=== PATIENT | female | born 1950 | race Caucasian/White ===

== ENCOUNTER 2017-11-16 20:10 | Inpatient (IN) | payer OTHER, MEDICARE ==
[2017-11-16] VITALS (9 sets, daily range): BP systolic 113–137; BP diastolic 63–85; PULSE 102–124; RESP 20–28; TEMP 97.5–104.4; O2SAT 94–100
[~2017-11-16] VITALS: Ht 160 cm; Wt 82.7 kg
[~2017-11-16 20:10] MED LIST: DIGO0.259 PO; FURO1TAB93 PO; LANTUSP SQ; LEVA500T PO; LISI-357 PO; LORT10TA PO; METO50TA PO; POTA-243 PO; RIVA20 PO; SIMV20TA PO; UNIV15TA PO
[2017-11-16] MEDS ORDERED: NITROGLYCERIN-D5W 50 MG/250 ML 250 ML ONE (20:26)
[2017-11-16] MEDS ORDERED: FUROSEMIDE 40 MG/4 ML VIAL IV PUSH ONE (20:30)
[2017-11-16] MEDS ORDERED: NITROGLYCERIN-D5W 50 MG/250 ML 250 ML IV PRN (20:30)
[2017-11-16] MEDS ORDERED: PROPOFOL 1000 MG/100 ML INJ 100 ML IV PRN (20:30)
--- NOTE | 2017-11-16 20:35 | PD ---
HPI Chief Complaint: Respiratory Distress Time Seen by Provider: 20:24 Travel History International Travel<30 days: No Contact w/Intl Traveler<30days: No Traveled to known affect area: No History of Present Illness HPI Patient is a 67-year-old female who was at home severe shortness of breath in a rapid A. fib call paramedics they found her to be D satting they put her on CPAP and she continued to desat severe tachypnea air hunger en route discussion of intubating and ventilating patient agreed she is intubated in the field with 2 of Ativan 20 of etomidate patient arrives ET tube is in place she is hypertensive paramedics report that she had CHF with fluid bilaterally all the way up her lung arriaga intubation with out complications and she is brought into the ER hypertensive tachycardic and intubated tube was spotting breath sounds are equal bilateral auscultated at the axilla acute CHF exacerbation is the working diagnosis on initial eval temperature was 97.9 PFSH Past Medical History Arthritis: Yes Asthma: No Atrial Fibrillation: Yes Autoimmune Disease: No Anxiety: Yes Depression: No Heart Rhythm Problems: Yes (afib) Cancer: Yes (KIDNEY) Cardiovascular Problems: Yes High Cholesterol: Yes Chemotherapy: No Chest Pain: No Congestive Heart Failure: Yes COPD: Yes Cerebrovascular Accident: No Diabetes: Yes Diminished Hearing: No Endocrine: Yes Gastrointestinal Disorders: No GERD: No Glaucoma: No Genitourinary: Yes Hepatitis: No Hiatal Hernia: No Hypertension: Yes Immune Disorder: No Kidney Stones: No Musculoskeletal: Yes Neurologic: No Psychiatric: No Reproductive: No Respiratory: No Integumentary: No Migraines: No Pneumonia: Yes Radiation Therapy: No Renal Failure: No Seizures: No Sickle Cell Disease: No Sleep Apnea: No Thyroid Disease: No Ulcer: No ?: Not Past Surgical History Abdominal Surgery: No AICD: No Arteriovenous Shunt: No Cardiac Surgery: No Ear Surgery: No Endocrine Surgery: No Eye Surgery: No Genitourinary Surgery: Yes (KIDNEY REMOVED) Gynecologic Surgery: Yes (HYSTERECTOMY) Hysterectomy: Yes Insulin Pump: No Joint Replacement: No Oral Surgery: Yes (TONSILLECTOMY) Pacemaker: Yes Thoracic Surgery: No Tonsillectomy: Yes Social History Alcohol Use: Yes Tobacco Use: No Substance Use: No Allergies-Medications (Allergen,Severity, Reaction): Coded Allergies: penicillin G (Unverified Allergy, Severe, Nausea/Vomiting, 06/28/17) Reported Meds & Prescriptions Reported Meds & Active Scripts Active Reported Simvastatin 20 Mg Tab 20 Mg PO DAILY Potassium Chloride ER (Potassium Chloride) 8 Meq Cap 8 Meq PO BID Xarelto (Rivaroxaban) 10 Mg Tab 20 Mg PO DAILY Metoprolol Succinate ER 24 HR (Metoprolol Succinate) 50 Mg Tab 50 Mg PO BID Lantus Inj (Insulin Glargine) 100 Unit/Ml Inj 15 Unit SQ HS Entresto (Sacubitril-Valsartan) 49-51 Mg Tab 1 Tab PO DAILY Review of Systems ROS Limitations: Clinical Condition, Intubated Physical Exam Narrative GENERAL: Patient is intubated sedated unresponsive eyes partially open SKIN: Warm and dry. HEAD: Atraumatic. Normocephalic. EYES: Pupils equal and round. No scleral icterus. No injection or drainage. ENT: No nasal bleeding or discharge. Mucous membranes pink and moist. ET tube is in place tubas fogging chest is rising with each BVM ventilation NECK: Trachea midline. No JVD. CARDIOVASCULAR: Regular rate and rhythm. RESPIRATORY: No accessory muscle use. . Breath sounds equal bilaterally. Intubated axilla have coarse breath sounds bilaterally GASTROINTESTINAL: Abdomen soft, non-tender, nondistended. Hepatic and splenic margins not palpable. MUSCULOSKELETAL: Extremities cool to the touch No obvious deformities. NEUROLOGICAL: Patient is sedated and intubated neurological exam is unable to be performed Psychologically she is sedated and unresponsive Data Data Last Documented VS Vital Signs Date Time Temp Pulse Resp B/P (MAP) Pulse Ox O2 Delivery O2 Flow Rate FiO2 11/16/17 21:00 104.4 105 28 113/68 (83) 94 Ventilator 100 Orders Orders Chest, Single Ap (11/16/17 ) Nitroglycerin-D5w 50 Mg/250 Ml (Nitrogly (11/16/17 20:30) Propofol 1000 Mg/100 Ml Inj (Diprivan 10 (11/16/17 20:30) Nitroglycerin-D5w 50 Mg/250 Ml (Nitrogly (11/16/17 20:26) Complete Blood Count With Diff (11/16/17 20:28) Comprehensive Metabolic Panel (11/16/17 20:28) Ckmb (Isoenzyme) Profile (11/16/17 20:28) Troponin I (11/16/17 20:28) Urinalysis - C+S If Indicated (11/16/17 20:28) Magnesium (Mg) (11/16/17 20:28) Thyroid Stimulating Hormone (11/16/17 20:28) Furosemide Inj (Lasix Inj) (11/16/17 20:30) Piperacil-Tazo 3.375 Gm Premix (Zosyn 3. (11/16/17 21:00) Acetaminophen Supp (Tylenol Supp) (11/16/17 21:00) Admit To Inpatient (11/16/17 ) Code Status (11/16/17 20:59) Vital Signs (Adult) TEDDY.Q1H (11/16/17 20:59) Activity Bed Rest (11/16/17 20:59) Elevate Head Of Bed (11/16/17 20:59) Bedside Glucose TEDDY.BGM (11/16/17 20:59) Insert Ng Tube (11/16/17 20:59) Diet Npo (11/17/17 Breakfast) Sodium Chloride 0.9% Flush (Ns Flush) (11/16/17 21:00) Sodium Chloride 0.9% Flush (Ns Flush) (11/16/17 21:00) Famotidine Inj (Pepcid Inj) (11/16/17 21:00) Artificial Tears Opth Soln (Tears Natura (11/17/17 09:00) Ondansetron Inj (Zofran Inj) (11/16/17 21:00) Albuterol-Ipratropium Neb (Duoneb Neb) (11/16/17 22:00) Albuterol Neb (Albuterol Neb) (11/16/17 21:00) Complete Blood Count With Diff (11/17/17 04:00) Comprehensive Metabolic Panel (11/17/17 04:00) Troponin I (11/16/17 23:59) Act Partial Throm Time (Ptt) (11/17/17 04:00) Prothrombin Time / Inr (Pt) (11/17/17 04:00) Magnesium (Mg) (11/17/17 04:00) Phosphorus (Po4) (11/17/17 04:00) Lactic Acid (11/17/17 04:00) Blood Culture (11/16/17 20:59) Echo 2d Comp With Doppler (11/16/17 20:59) Pt Request For Service (11/16/17 20:59) Technical Staff Engineer / Telemetry TEDDY.Q8H (11/16/17 20:59) Scd Bilateral/Knee High TEDDY.BID (11/16/17 20:59) ^ Initiate Protocol (11/16/17 20:59) Instruction (11/16/17 20:59) [facility] (11/16/17 21:00) Chlorhexidine 2% Cloth (Chlorhexidine 2% (11/17/17 04:00) Chlorhexidine 2% Cloth (Chlorhexidine 2% (11/16/17 21:00) Mrsa Pcr Surveillance (11/16/17 20:59) Docusate Sodium-Senna (Jacinta-Colace) (11/16/17 21:00) Magnesium Hydroxide Liq (Milk Of Magnesi (11/16/17 21:00) Sennosides (Senokot) (11/16/17 21:00) Bisacodyl Supp (Dulcolax Supp) (11/16/17 21:00) Lactulose Liq (Lactulose Liq) (11/16/17 21:00) Inpatient Certification (11/16/17 ) Place Ng Tube To Low Intermit (11/16/17 21:02) Bedside Glucose TEDDY.Q6H (11/16/17 21:02) Blood Glucose Goal (Criteria) (11/16/17 21:02) Hypoglycemia 70 Mg/Dl Or < (11/16/17 21:02) Notify Dr: Other (11/16/17 21:02) Dextrose 50% In Lambert (Vial) Inj (D50w (Vi (11/16/17 21:15) Glucagon Inj (Glucagon Inj) (11/16/17 21:15) Insulin Human Reg Supp Scale (Novolin R (11/17/17 00:00) Elevate Head Of Bed (11/16/17 21:03) Chlorhexidine 0.12% Liq (Peridex 0.12% L (11/17/17 08:00) Resp Ventilation- Pressure (11/16/17 ) Restraints Non-Violent TEDDY.Q3H (11/16/17 21:03) Ventilator Weaning Readiness TEDDY.DAILY@0800 (11/16/17 21:03) Resp Spont Breath Trial (Sbt) (11/16/17 ) Arterial Blood Gas (Abg) (11/16/17 ) Propofol 1000 Mg/100 Ml Inj (Diprivan 10 (11/16/17 21:15) Neurological Rass Scale Q30MX2,Q2HX4,Q4H (11/16/17 21:03) Neurological Rass Scale Q30MX2,Q2HX4,Q4H (11/16/17 21:03) Fentanyl Drip (Fentanyl Drip) (11/16/17 21:15) Vancomycin Inj (Vancomycin Inj) (11/16/17 21:15) Influenzae A/B Antigen (11/16/17 21:04) Legionella Urinary Antigen (11/16/17 21:04) Pneumococcal Urinary Antigen (11/16/17 21:04) Aztreonam Inj (Azactam Inj) (11/16/17 23:00) Vancomycin Consult Pharmacy (Vancomycin (11/16/17 21:15) Azithromycin Inj (Zithromax Inj) (11/16/17 22:00) Admit Order (Ed Use Only) (11/16/17 21:19) Metronidazole 500 Mg Inj (Flagyl 500 Mg (11/17/17 00:00) Digoxin (11/16/17 20:40) Phosphorus (Po4) (11/16/17 20:40) CKMB (11/17/17 00:31) CKMB% (11/17/17 00:31) Creatine Kinase (Cpk) (11/17/17 02:53) Troponin I (11/17/17 02:53) CKMB (11/17/17 02:53) CKMB% (11/17/17 02:53) Labs Laboratory Tests Test 11/16/17 20:40 11/16/17 21:02 11/16/17 21:15 White Blood Count 15.6 TH/MM3 Red Blood Count 5.82 MIL/MM3 Hemoglobin 18.0 GM/DL Hematocrit 53.1 % Mean Corpuscular Volume 91.3 FL Mean Corpuscular Hemoglobin 31.0 PG Mean Corpuscular Hemoglobin Concent 33.9 % Red Cell Distribution Width 16.6 % Platelet Count 263 TH/MM3 Mean Platelet Volume 10.8 FL Neutrophils (%) (Auto) 76.1 % Lymphocytes (%) (Auto) 13.4 % Monocytes (%) (Auto) 9.3 % Eosinophils (%) (Auto) 0.2 % Basophils (%) (Auto) 1.0 % Neutrophils # (Auto) 11.9 TH/MM3 Lymphocytes # (Auto) 2.1 TH/MM3 Monocytes # (Auto) 1.4 TH/MM3 Eosinophils # (Auto) 0.0 TH/MM3 Basophils # (Auto) 0.2 TH/MM3 CBC Comment DIFF FINAL Differential Comment Blood Gas Puncture Site LT BRACHIAL Blood Gas Patient Temperature 98.6 Blood Gas HCO3 19 mmol/L Blood Gas Base Excess -6.4 mmol/L Blood Gas Oxygen Saturation 99 % Arterial Blood pH 7.31 Arterial Blood Partial Pressure CO2 38 mmHg Arterial Blood Partial Pressure O2 456 mmHG Arterial Blood Oxygen Content 27.1 Vol % Arterial Blood Carboxyhemoglobin 0.8 % Arterial Blood Methemoglobin 0.5 % Blood Gas Hemoglobin 18.8 G/DL Oxygen Delivery Device VENT Blood Gas Ventilator Setting SEE COMMENTS Blood Gas Inspired Oxygen 100 % Urine Color YELLOW Urine Turbidity HAZY Urine pH 6.5 Urine Specific [place] 1.019 Urine Protein 300 mg/dL Urine Glucose (UA) TRACE mg/dL Urine Ketones NEG mg/dL Urine Occult Blood MOD Urine Nitrite NEG Urine Bilirubin NEG Urine Urobilinogen LESS THAN 2.0 MG/DL Urine Leukocyte Esterase NEG Urine RBC 53 /hpf Urine WBC 38 /hpf Urine Squamous Epithelial Cells 8 /hpf Urine Amorphous Sediment RARE Urine Bacteria MANY /hpf Urine Hyaline Casts 3 /lpf Urine Mucus FEW /lpf Microscopic Urinalysis Comment CULTURE INDICATED MDM Medical Decision Making Medical Screen Exam Complete: Yes Emergency Medical Condition: Yes Medical Record Reviewed: Yes Differential Diagnosis Frontal diagnosis includes CHF due to hypertension and increased afterload versus bilateral pneumonia versus urosepsis versus viral illness versus OK with arrhythmia causing flash pulmonary edema versus other Narrative Course Patient is intubated in the field they found her to be hypertensive and all their BVM in her with a bag valve mask she was unable to maintain her said she was descending to 85 she tired out en route they intubated her etomidate was given in the field as well as Ativan she arrives her BP is 180/110 paramedics that she had frothy foam as intubating coming from her cords patient was given nitroglycerin 10 mics a minute as well as Lasix 40 in the ER temperature is 104 Vanco and Zosyn are started immediately to cover lungs versus urine patient is given propofol starting at 5 mics and titrating as needed I speak to Dr. Saha of ICU who comes bedside and admits the patient after I have done 45 minutes of critical care Critical Care Narrative Critical Medical care is 45 minutes Diagnosis Primary Impression: Sepsis Qualified Codes: A41.9 - Sepsis, unspecified organism Additional Impressions: Cardiac ischemia Dehydration Admitting Information Admitting Physician Requests: Admit Devan Unger MD Nov 16, 2017 20:35
--- NOTE | 2017-11-16 20:53 | HHI.HP ---
[facility] Service Critical Care Medicine Primary Care Physician Unknown Admission Diagnosis Acute respiratory failure Diagnosis: (1) Acute respiratory failure with hypoxia and hypercapnia Diagnosis: Principal (2) Chronic systolic heart failure Diagnosis: Principal (3) Hypertension Diagnosis: Principal (4) Dyslipidemia Diagnosis: Secondary (5) Chronic anticoagulation Diagnosis: Principal (6) Atrial fibrillation with rapid ventricular response Diagnosis: Principal (7) Leukocytosis Diagnosis: Principal (8) Community acquired pneumonia Diagnosis: Principal (9) Sepsis Diagnosis: Principal (10) Elevated levels of transaminase & lactic acid dehydrogenase Diagnosis: Principal (11) Lactic acidosis Diagnosis: Principal Chief Complaint: Two to 3 day history of Short of breath. Intubated Travel History International Travel<30 Days: No Contact w/Intl Traveler <30 Da: No Traveled to Known Affected Are: No Sepsis Criteria SIRS Criteria (2 or more): RR > 20 or PaCO2 < 32, WBC > 90201, < 4000 or > 10 % bands Sepsis Criteria (SIRS+source): Infect source susp/known History of Present Illness 67-year-old female. Date of admission 11/16/2017. Past medical history includes chronic systolic heart failure ejection fraction 25%, hypertension, dyslipidemia, atrial fibrillation on chronic rivaroxaban, renal cell cancer status post nephrectomy, diabetes. Patient resisted [place] of the today for 2-3 day history of shortness of breath, fevers. Patient has not precipitated been on antibiotics. No recent sick contacts or travels. In route , patient asked me intubated was received lorazepam and etomidate. Patient was "intubated" due to CHF vs PNA. Received Furosemide in route. Currently no laboratories or chest x-ray or EKG have been performed at the present time. We are asked to admit the patient. Review of Systems ROS Limitations: Altered Mental Status Past Family Social History Allergies: Coded Allergies: penicillin G (Unverified Allergy, Severe, Nausea/Vomiting, 06/28/17) Past Medical History Ischemic cardiomyopathy ejection fraction 25-30% Chronic systolic heart failure Atrial fibrillation Hypertension Dyslipidemia Diabetes mellitus Osteoporosis osteoarthritis Left bundle branch block/left anterior fascicular block History of renal cell carcinoma Chronic anticoagulation Past Surgical History T&A AICD Nephrectomy secondary to renal cell carcinoma Hysterectomy Reported Medications Lortab (Hydrocodone-Acetaminophen) 1 Tab Tab 1 Tab PO 5/500 MG PO Q4HR PRN FOR PAIN Levaquin 500 Mg Tab (Levofloxacin) 500 Mg Tab 500 Mg PO DAILY 5 Days Lisinopril 5 Mg Tab 5 Mg PO DAILY Klor-Con 10 Meq (Potassium Chloride) 10 Meq Tabcr 20 Meq PO DAILY Lasix (Furosemide) 40 Mg Tab 40 Mg PO BID Xarelto 20 Mg Tab (Rivaroxaban) 20 Mg Tab 20 Mg PO DAILY Digox (Digoxin) 0.25 Mg Tab 250 Mcg PO DAILY Metoprolol Tartrate 50 Mg Tab 50 Mg PO BID Lantus (Insulin Glargine) 100 Units/Ml Inj 12 Units SQ HS Simvastatin 20 Mg Tab 20 Mg PO HS Univasc (Moexipril HCl) 15 Mg Tab 15 Mg PO BID Active Ordered Medications Reviewed in EMR Family History Positive for carotid artery disease. Social History No tobacco, alcohol or IV drug use Physical Exam Vital Signs Vital Signs Date Time Temp Pulse Resp B/P (MAP) Pulse Ox O2 Delivery O2 Flow Rate FiO2 11/16/17 20:40 107 164/110 11/16/17 20:19 120 20 11/16/17 20:18 110 137/85 (102) 11/16/17 20:17 100 11/16/17 20:13 97.5 124 20 Physical Exam GENERAL: 67 -year-old currently orotracheally intubated SKIN: Warm and dry. No rash HEAD: Atraumatic. Normocephalic. EYES: Pupils equal and round around 3 mm bilaterally. No scleral icterus. No injection or drainage. ENT: No nasal bleeding or discharge. Mucous membranes pink and moist. NECK: Trachea midline. No JVD. CARDIOVASCULAR: Tachycardia, IR. S1, S2 no S4 no murmur.. RESPIRATORY: Diminished. Few crackles patient bases bilaterally. No wheeze GASTROINTESTINAL: Abdomen soft, non-tender, nondistended. Positive bowel sounds MUSCULOSKELETAL: Extremities without significant peripheral edema. No obvious deformities. NEUROLOGICAL: Cranial nerves II through XII grossly intact. Withdraws to pain in all 4 extremities. Positive gag. Positive corneal reflex. Laboratory Laboratory Tests Test 11/16/17 20:40 11/16/17 21:02 White Blood Count 15.6 TH/MM3 Red Blood Count 5.82 MIL/MM3 Hemoglobin 18.0 GM/DL Hematocrit 53.1 % Mean Corpuscular Volume 91.3 FL Mean Corpuscular Hemoglobin 31.0 PG Mean Corpuscular Hemoglobin Concent 33.9 % Red Cell Distribution Width 16.6 % Platelet Count 263 TH/MM3 Mean Platelet Volume 10.8 FL Neutrophils (%) (Auto) 76.1 % Lymphocytes (%) (Auto) 13.4 % Monocytes (%) (Auto) 9.3 % Eosinophils (%) (Auto) 0.2 % Basophils (%) (Auto) 1.0 % Neutrophils # (Auto) 11.9 TH/MM3 Lymphocytes # (Auto) 2.1 TH/MM3 Monocytes # (Auto) 1.4 TH/MM3 Eosinophils # (Auto) 0.0 TH/MM3 Basophils # (Auto) 0.2 TH/MM3 CBC Comment DIFF FINAL Differential Comment Blood Gas Puncture Site LT BRACHIAL Blood Gas Patient Temperature 98.6 Blood Gas HCO3 19 mmol/L Blood Gas Base Excess -6.4 mmol/L Blood Gas Oxygen Saturation 99 % Arterial Blood pH 7.31 Arterial Blood Partial Pressure CO2 38 mmHg Arterial Blood Partial Pressure O2 456 mmHG Arterial Blood Oxygen Content 27.1 Vol % Arterial Blood Carboxyhemoglobin 0.8 % Arterial Blood Methemoglobin 0.5 % Blood Gas Hemoglobin 18.8 G/DL Oxygen Delivery Device VENT Blood Gas Ventilator Setting SEE COMMENTS Blood Gas Inspired Oxygen 100 % Imaging Last Impressions Chest X-Ray 11/16/17 0000 Signed Impressions: Service Date/Time: November 20:52 - CONCLUSION: Bilateral airspace disease greatest in the left lower lobe. Gato Garcia MD Septic Shock Reassessment Septic shock perfusion: reassessment completed Caprini VTE Risk Assessment Caprini VTE Risk Assessment: Mod/High Risk (score >= 2) Caprini Risk Assessment Model Point Value = 1 Point Value = 2 Point Value = 3 Point Value = 5 Age 41-60 Minor surgery BMI > 25 kg/m2 Swollen legs Varicose veins or History of unexplained or recurrent spontaneous Oral contraceptives or hormone replacement Sepsis (< 1 month) Serious lung disease, including pneumonia (< 1 month) Abnormal pulmonary function Acute myocardial infarction Congestive heart failure (< 1 month) History of inflammatory bowel disease Medical patient at bed rest Age 61-74 Arthroscopic surgery Major open surgery (> 45 min) Laparoscopic surgery (> 45 min) Malignancy Confined to bed (> 72 hours) Immobilizing plaster cast Central venous access Age >= 75 History of VTE Family history of VTE Factor V Leiden Prothrombin [id number] Lupus anticoagulant Anticardiolipin antibodies Elevated serum homocysteine Heparin-induced thrombocytopenia Other congenital or acquired thrombophilia Stroke (< 1 month) Elective arthroplasty Hip, pelvis, or leg fracture Acute spinal cord injury (< 1 month) Prophylaxis Regimen Total Risk Factor Score Risk Level Prophylaxis Regimen 0-1 Low Early ambulation 2 Moderate Order ONE of the following: *Sequential Compression Device (SCD) *Heparin 5000 units SQ BID 3-4 Higher Order ONE of the following medications: *Heparin 5000 units SQ TID *Enoxaparin/Lovenox 40 mg SQ daily (WT < 150 kg, CrCl > 30 mL/min) *Enoxaparin/Lovenox 30 mg SQ daily (WT < 150 kg, CrCl > 10-29 mL/min) *Enoxaparin/Lovenox 30 mg SQ BID (WT < 150 kg, CrCl > 30 mL/min) AND/OR *Sequential Compression Device (SCD) 5 or more Highest Order ONE of the following medications: *Heparin 5000 units SQ TID (Preferred with Epidurals) *Enoxaparin/Lovenox 40 mg SQ daily (WT < 150 kg, CrCl > 30 mL/min) *Enoxaparin/Lovenox 30 mg SQ daily (WT < 150 kg, CrCl > 10-29 mL/min) *Enoxaparin/Lovenox 30 mg SQ BID (WT < 150 kg, CrCl > 30 mL/min) AND *Sequential Compression Device (SCD) Assessment and Plan Assessment and Plan Neuro/Psych: Patient is currently propofol/fentanyl drips for sedation/analgesia while intubated Goal of RA SS -2 Daily sedation vacation Acetaminophen 650 mg every 6 hours when necessary fever discontinue secondary to elevated transaminases CV: Ischemic cardiomyopathy Atrial fibrillation with rapid ventricular response Hypertension Dyslipidemia History of AICD Lactic acidosis Currently nitroglycerin drip. Recommend obtaining EKG - A. fib with RVR. Left bundle branch block. Recommend obtaining electrolytes and cardiac markers - troponin elevated. Cardiology consulted. Dr. Burnette his supervisor anodizing Recommend obtaining a TSH Recommend checking digoxin level - 1.5 Follow serial lactates until clear. Currently 2.7 Home medications include digoxin .250 mg daily, metoprolol 50 mg twice a day, moexipril 15 mill grams twice a day lisinopril 5 mill grams daily held in acute kidney injury/borderline blood pressure Patient is on furosemide 40 mg twice a day with potassium chloride 20 mEq daily at home. This is been held. Acute kidney injury. Resp: Acute hypoxic hypercapnic respiratory failure [facility] 16/500/40 Ventilator bundle Albuterol/ipratropium aerosols every 6 hours albuterol aerosols every 2 hours. Dyspnea Spontaneous breathing trials daily Chest x-ray revealed bilateral lower lobe infiltrates. GI: Elevated transaminases Patient is currently nothing by mouth NGT to LIWS Famotidine for GI prophylaxis Docusate/senna for bowel regimen Liver ultrasound/hepatitis panel pending. CPK 400 : Delgado catheter for accurate I's nose any critically ill patient Endo: Diabetes mellitus Holding insulin glargine 12 units at night. Sliding-scale insulin with Accu-Cheks every 6 hours to maintain euglycemia. Novulin R moderate regimen Check TSH Renal: History of renal cell carcinoma status post nephrectomy Acute kidney injury Recommended obtain BMP - creatinine elevated 1.99. Avoid nephrotoxic drugs Follow-up renal ultrasound/eosinophils and urine electrolytes Heme: Leukocytosis polycythemia Chronic Rivaroxaban use Monitor CBC daily. Follow trends Elevated coagulopathy state likely secondary to shock liver. Recheck in a.m. ID: Pyyrexia Temperature is currently 100F Recommend obtaining blood cultures, urine culture and sputum culture Recommend obtaining influenza Check urine Legionella pneumococcal antigen Received 1 dose of piperacillin/tazobactam in the ED noted allergy to penicillin. Started on vancomycin, aztreonam, metronidazole and azithromycin FEN: Recommend obtaining electrolytes and replace as clinically indicated MSK: pt EVAL and treat Access - Utilize peripheral IV. Central line if indicated Prophylaxis - GI - pantoprazole - DVT - SCD/coags and platelet count prior to initiating pharmacological prophylaxis Level II admission Code Status Full code Discussed Condition With ED physician. Care plan discussed and all questions answered. Problem Qualifiers (1) Hypertension: Qualified Codes: I10 - Essential (primary) hypertension (2) Leukocytosis: Qualified Codes: D72.829 - Elevated white blood cell count, unspecified (3) Community acquired pneumonia: Qualified Codes: J18.1 - Lobar pneumonia, unspecified organism (4) Sepsis: Qualified Codes: A41.9 - Sepsis, unspecified organism Chandler Saha MD Nov 16, 2017 20:53
[2017-11-16 20:58] LABS: AUTOMATED NEUTROPHIL # 11.9 TH/MM3 (1.8-7.7); BASOPHIL # 0.2 TH/MM3 (0-0.2); EOSINOPHIL % 0.2 % (0.0-4.0); HEMATOCRIT 53.1 % (35.0-46.0); LYMPH % 13.4 % (9.0-44.0); LYMPHOCYTE # 2.1 TH/MM3 (1.0-4.8); MEAN CELL VOLUME 91.3 FL (80.0-100.0); MEAN CORPUSCULAR HGB CONC 33.9 % (32.0-36.0); MEAN PLATELET VOLUME 10.8 FL (7.0-11.0); MONO % 9.3 % (0.0-8.0); MONOCYTE # 1.4 TH/MM3 (0-0.9); NEUT % 76.1 % (16.0-70.0); PLATELET COUNT 263 TH/MM3 (150-450); RED BLOOD COUNT 5.82 MIL/MM3 (4.00-5.30); RED CELL DISTRIBUTION WIDTH 16.6 % (11.6-17.2); WHITE BLOOD COUNT 15.6 TH/MM3 (4.0-11.0)
[2017-11-16] MEDS ORDERED: FAMOTIDINE 20 MG/2 ML VIAL IV PUSH SCH (21:00)
[2017-11-16] MEDS ORDERED: PIPERACIL-TAZO 3.375 GM PREMIX 50 ML IV ONE (21:00)
[2017-11-16] MEDS ORDERED: BISACODYL 10 MG SUPP RECTAL PRN (21:00)
[2017-11-16] MEDS ORDERED: ACETAMINOPHEN 650 MG SUPP RECTAL ONE (21:00)
[2017-11-16] MEDS ORDERED: MAGNESIUM HYDROXIDE SUSP 30 ML CUP PO PRN (21:00)
[2017-11-16] MEDS ORDERED: RESP: ALBUTEROL 2.5 MG/3 ML NEB (PRN) INH (21:00)
[2017-11-16] MEDS ORDERED: ONDANSETRON HCL 4 MG/2 ML VIAL IV PUSH PRN (21:00)
[2017-11-16] MEDS: DOCUSATE SODIUM 50 MG/SENNA 8.6 MG TAB PO SCH (21:00)
[2017-11-16] MEDS ORDERED: MISCELLANEOUS NURSING INFORMATION XX SCH (21:00)
[2017-11-16] MEDS ORDERED: SODIUM CHLORIDE 0.9% FLUSH 10 ML FLUSH IV FLUSH PRN (21:00)
[2017-11-16] MEDS ORDERED: CHLORHEXIDINE GLUCONATE 2 % 1 PACK (2 CLOTHS) TOP PRN (21:00)
[2017-11-16] MEDS ORDERED: SENNOSIDES 8.6 MG TAB PO PRN (21:00)
[2017-11-16] MEDS ORDERED: LACTULOSE SYRUP 20 GM/30 ML CUP PO PRN (21:00)
--- NOTE | 2017-11-16 21:08 | RADRPT ---
EXAM DATE/TIME: 11/16/2017 20:52 [place] COMPARISON: No previous studies available for comparison. INDICATIONS : Short of breath. Post intubation. MEDICAL HISTORY : Unable to obtain. SURGICAL HISTORY : Pacemaker. ENCOUNTER: Initial ACUITY: 1 day PAIN SCORE: Non-responsive. LOCATION: Bilateral chest FINDINGS: Endotracheal tube tip at the inferior margin of clavicles. NG tube courses inferiorly, distal tip pro jecting at the expected location of the esophagogastric junction. There is patchy airspace disease bi laterally and cardiomegaly. Pacer device from a left subclavian transvenous approach noted. CONCLUSION: Bilateral airspace disease greatest in the left lower lobe. Gato Garcia MD on November 16, 2017 at 21:06 Board Certified Radiologist. This report was verified electronically.
[2017-11-16] MEDS ORDERED: VANCOMYCIN INJ 1,000 MG in SODIUM CHLOR 0.9% 250 ML INJ 250 ML IV ONE (21:15)
[2017-11-16] MEDS ORDERED: Vancomycin Consult Pharmacy 1 EA OTHER SCH (21:15)
[2017-11-16] MEDS ORDERED: GLUCAGON 1 MG/ML VIAL OTHER PRN (21:15)
[2017-11-16] MEDS ORDERED: fentaNYL DRIP 250 ML IV PRN (21:15)
[2017-11-16] MEDS ORDERED: SACU1TAB7 PO (21:31)
[2017-11-16] MEDS ORDERED: SIMV20TA PO (21:31)
[2017-11-16] MEDS ORDERED: POTA8CAP PO (21:31)
[2017-11-16] MEDS ORDERED: XARE10TA PO (21:31)
[2017-11-16] MEDS ORDERED: LANTUS2P SQ (21:31)
[2017-11-16] MEDS ORDERED: METO1TAB9 PO (21:31)
[2017-11-16] MEDS ORDERED: ACETAMINOPHEN 650 MG/20.3 ML UDC OG-TUBE PRN (21:45)
[2017-11-16] MEDS: RESP: ALBUTEROL 2.5 MG/IPRATROPIUM 0.5 MG NEB (SCH) INH (21:47)
[2017-11-16] MEDS ORDERED: SODIUM CHLORID 0.9% 500 ML INJ 500 ML IV ONE (22:15)
[2017-11-16 22:20] LABS: AMORPHOUS SEDIMENT, URINE RARE; BACTERIA, URINE MANY /hpf; BLOOD, URINE MOD (NEG); GLUCOSE,URINE TRACE mg/dL (NEG); HYALINE CAST, URINE 3 /lpf (RARE); KETONE, URINE NEG (NEG); MUCUS URINE FEW /lpf (OCC); NITRITE,URINE NEG (NEG); PH, URINE 6.5 (5.0-8.5); SQUAMOUS EPITHELIAL CELL URINE 8 /hpf (0-5); URINE COLOR YELLOW (YELLW/STRAW); URINE LEUKOCYTE ESTERASE NEG (NEG)
[2017-11-16 22:26] LABS: BILIRUBIN, URINE NEG (NEG)
[2017-11-16] MEDS: AZITHROMYCIN INJ 500 MG in SODIUM CHLOR 0.9% 250 ML INJ 250 ML IV SCH (22:35)
[2017-11-16] MEDS: PROPOFOL 1000 MG/100 ML INJ 100 ML IV PRN (23:55)
[2017-11-17] VITALS (19 sets, daily range): BP systolic 89–111; BP diastolic 54–69; PULSE 63–110; RESP 19–28; TEMP 97.8–102; O2SAT 94–100
[2017-11-17] MEDS: metroNIDAZOLE 500 MG INJ 100 ML IV SCH ×4 (00:15→23:15)
[2017-11-17] MEDS: AZITHROMYCIN INJ 500 MG in SODIUM CHLOR 0.9% 250 ML INJ 250 ML IV SCH (00:15)
[2017-11-17] MEDS: AZTREONAM INJ 2,000 MG in SODIUM CHLORIDE 0.9% INJ 100 ML IV SCH ×4 (00:16→23:14)
[2017-11-17] MEDS: SODIUM CHLORIDE 0.9% FLUSH 10 ML FLUSH IV FLUSH SCH ×3 (00:17→20:53)
[2017-11-17 01:33] LABS: ALBUMIN 2.2 GM/DL (3.4-5.0); ALKALINE PHOSPHATASE 99 U/L (45-117); ALT (GPT) 2408 U/L (10-53); AST (GOT) 4277 U/L (15-37); BLOOD UREA NITROGEN 39 MG/DL (7-18); CALCIUM 8.1 MG/DL (8.5-10.1); CHLORIDE 104 MEQ/L (98-107); CREATININE 1.95 MG/DL (0.50-1.00); DIGOXIN 1.5 NG/ML (0.8-2.0); GLOMERULAR FILTRATION RATE 26 ML/MIN (>89); GLUCOSE,RANDOM 189 MG/DL (74-106); PHOSPHORUS 4.7 MG/DL (2.5-4.9); SODIUM (NA) 140 MEQ/L (136-145); TOTAL BILIRUBIN ADULT 3.3 MG/DL (0.2-1.0); TOTAL PROTEIN 5.6 GM/DL (6.4-8.2)
[2017-11-17 01:43] LABS: MAGNESIUM 1.8 MG/DL (1.5-2.5)
[2017-11-17 01:45] LABS: TROPONIN I 1.13 NG/ML (0.02-0.05)
[2017-11-17 03:06] LABS: AUTOMATED NEUTROPHIL # 12.8 TH/MM3 (1.8-7.7); BASOPHIL % 0.3 % (0.0-2.0); HEMATOCRIT 50.8 % (35.0-46.0); HEMOGLOBIN 16.7 GM/DL (11.6-15.3); LYMPH % 7.5 % (9.0-44.0); LYMPHOCYTE # 1.1 TH/MM3 (1.0-4.8); MEAN CELL VOLUME 89.2 FL (80.0-100.0); MEAN CORPUSCULAR HEMOGLOBIN 29.3 PG (27.0-34.0); MEAN CORPUSCULAR HGB CONC 32.9 % (32.0-36.0); MEAN PLATELET VOLUME 9.5 FL (7.0-11.0); MONOCYTE # 0.7 TH/MM3 (0-0.9); NEUT % 87.2 % (16.0-70.0); PLATELET COUNT 134 TH/MM3 (150-450); RED BLOOD COUNT 5.69 MIL/MM3 (4.00-5.30); RED CELL DISTRIBUTION WIDTH 16.1 % (11.6-17.2); WHITE BLOOD COUNT 14.7 TH/MM3 (4.0-11.0)
[2017-11-17 03:23] LABS: INTERNATIONAL NORMALIZED RATIO 2.8 RATIO; PROTHROMBIN TIME - PATIENT 28.5 SEC (9.8-11.6)
[2017-11-17 03:40] LABS: ALBUMIN 2.1 GM/DL (3.4-5.0); BLOOD UREA NITROGEN 42 MG/DL (7-18); CALCIUM 7.7 MG/DL (8.5-10.1); CREATININE 1.99 MG/DL (0.50-1.00); GLOMERULAR FILTRATION RATE 25 ML/MIN (>89); GLUCOSE,RANDOM 201 MG/DL (74-106); TOTAL PROTEIN 5.1 GM/DL (6.4-8.2)
[2017-11-17 03:41] LABS: ALKALINE PHOSPHATASE 96 U/L (45-117); ALT (GPT) 2581 U/L (10-53); AST (GOT) 4938 U/L (15-37); BICARBONATE 22.9 MEQ/L (21.0-32.0); CHLORIDE 106 MEQ/L (98-107); MAGNESIUM 1.6 MG/DL (1.5-2.5); SODIUM (NA) 142 MEQ/L (136-145); TOTAL BILIRUBIN ADULT 2.7 MG/DL (0.2-1.0)
[2017-11-17] MEDS: RESP: ALBUTEROL 2.5 MG/IPRATROPIUM 0.5 MG NEB (SCH) INH ×4 (03:41→22:03)
[2017-11-17 03:46] LABS: TROPONIN I 1.41 NG/ML (0.02-0.05)
[2017-11-17] MEDS: HEPARIN-D5W 25,000 U/250 ML 250 ML IV PRN (03:54)
[2017-11-17] MEDS: CHLORHEXIDINE GLUCONATE 2 % 1 PACK (2 CLOTHS) TOP SCH (04:00)
[2017-11-17] MEDS ORDERED: SODIUM CHLOR 0.9% 1000 ML INJ 1,000 ML IV ONE (04:45)
[2017-11-17] MEDS: PROPOFOL 1000 MG/100 ML INJ 100 ML IV PRN ×2 (05:50→15:35)
[2017-11-17] MEDS: INSULIN NovoLIN REGULAR SUPPLEMENTAL SCALE SQ SCH ×5 (06:00→23:18)
[2017-11-17] MEDS: SODIUM CHLOR 0.9% 1000 ML INJ 1,000 ML IV SCH ×2 (06:02→16:40)
[2017-11-17 07:09] LABS: CREATININE, RANDOM URINE 37.1 MG/DL
[2017-11-17] MEDS: ARTIFICIAL TEARS OPTH SOLN 15 ML BTL EACH EYE SCH ×3 (09:00→18:00)
[2017-11-17] MEDS: DOCUSATE SODIUM 50 MG/SENNA 8.6 MG TAB PO SCH ×2 (09:00→20:52)
--- NOTE | 2017-11-17 09:04 | PD.CONS ---
HPI Consult Requested By Primary Care Physician No Primary Care Physician History of Present Illness 67-year-old female admitted to the ICU with respiratory failure, intubated consulted to cardiology due to acute on chronic systolic heart failure exacerbation. Past medical history includes chronic systolic heart failure ejection fraction 25% s/p AICD, hypertension, dyslipidemia, atrial fibrillation on chronic rivaroxaban, renal cell cancer status post nephrectomy and diabetes. She presented to [facility] [place] with shortness of breath and fevers Tmax 104.4. No recent sick contacts or travels. Review of Systems ROS Limitations: Intubated Consitutional: DENIES: Fatigue, Fever, Chills, Weight gain, Weight loss Eyes: DENIES: Amaurosis Fugax, Change in vision HEENT: DENIES: Lightheadedness, Change in hearing Respiratory: COMPLAINS OF: See HPI, Shortness of breath, DENIES: Cough, Snoring , Wheezing, Sputum production Cardiovascular: DENIES: See HPI, Chest pain, Palpitations, Syncope, Tachycardia Gastrointestinal: DENIES: Nausea, Vomiting, Change in bowel habits, Reflux, Bloody stools, Melena Genitourinary: DENIES: Urinary incontinence, Difficulty voiding Integumentary: DENIES: Rash Neurologic: DENIES: Tingling or numbness, Memory problems, Poor Balance, Stroke symptoms Musculoskeletal: DENIES: Joint pain, Muscle pain, Limited range of motion, Back pain Psychiatric: DENIES: Anxiety, Depression, Sleep disturbances Hematologic: DENIES: Bruising tendencies, Bleeding tendencies Endocrine: DENIES: Weight gain, Weight loss, Thyroid disease Past Family Social History Allergies: Coded Allergies: penicillin G (Unverified Allergy, Severe, Nausea/Vomiting, 06/28/17) Past Medical History Ischemic cardiomyopathy ejection fraction 25-30% Chronic systolic heart failure Atrial fibrillation Hypertension Dyslipidemia Diabetes mellitus Osteoporosis osteoarthritis Left bundle branch block/left anterior fascicular block History of renal cell carcinoma Chronic anticoagulation Past Surgical History T&A AICD Nephrectomy secondary to renal cell carcinoma Hysterectomy Reported Medications Reported Meds & Active Scripts Active Reported Simvastatin 20 Mg Tab 20 Mg PO DAILY Potassium Chloride ER (Potassium Chloride) 8 Meq Cap 8 Meq PO BID Xarelto (Rivaroxaban) 10 Mg Tab 20 Mg PO DAILY Metoprolol Succinate ER 24 HR (Metoprolol Succinate) 50 Mg Tab 50 Mg PO BID Lantus Inj (Insulin Glargine) 100 Unit/Ml Inj 15 Unit SQ HS Entresto (Sacubitril-Valsartan) 49-51 Mg Tab 1 Tab PO DAILY Active Ordered Medications Current Medications Medications (Trade) Dose Ordered Sig/Baldomero Route Start Time Stop Time Status Last Admin Nitroglycerin/ Dextrose 250 ml @ 3 mls/hr TITRATE PRN IV 11/16/17 20:30 11/16/17 20:40 (NS Flush) 2 ml UNSCH PRN IV FLUSH 11/16/17 21:00 (NS Flush) 2 ml BID IV FLUSH 11/16/17 21:00 11/17/17 00:17 (Tears Naturale Opth Soln) 1 drop TID EACH EYE 11/17/17 09:00 (Zofran Inj) 4 mg Q6H PRN IV PUSH 11/16/17 21:00 (Duoneb Neb) 1 ampule Q6HR NEB INH 11/16/17 22:00 11/17/17 08:08 (Albuterol Neb) 2.5 mg Q2HR NEB PRN INH 11/16/17 21:00 Miscellaneous Information 1 Q361D XX 11/16/17 21:00 (Chlorhexidine 2% Cloth) 3 pack Taper DAILY@04 TOP 11/17/17 04:00 11/13/18 03:59 11/17/17 04:00 (Chlorhexidine 2% Cloth) 3 pack UNSCH PRN TOP 11/16/17 21:00 (Jacinta-Colace) 1 tab BID PO 11/16/17 21:00 (Milk Of Magnesia Liq) 30 ml Q12H PRN PO 11/16/17 21:00 (Senokot) 17.2 mg Q12H PRN PO 11/16/17 21:00 (Dulcolax Supp) 10 mg DAILY PRN RECTAL 11/16/17 21:00 (Lactulose Liq) 30 ml DAILY PRN PO 11/16/17 21:00 (D50w (Vial) Inj) 50 ml UNSCH PRN IV PUSH 11/16/17 21:15 (Glucagon Inj) 1 mg UNSCH PRN OTHER 11/16/17 21:15 (NovoLIN R SUPPLEMENTAL SCALE) 1 Q6HR SQ 11/17/17 00:00 11/17/17 06:00 (Peridex 0.12% Liq) 15 ml BID@08,20 MT 11/17/17 08:00 Propofol 100 ml @ 1.95 mls/hr TITRATE PRN IV 11/16/17 21:15 11/17/17 05:50 Fentanyl Citrate 250 ml @ 5 mls/hr TITRATE PRN IV 11/16/17 21:15 Aztreonam 2000 mg/ Sodium Chloride 100 ml @ 200 mls/hr Q8H IV 11/16/17 23:00 11/17/17 06:02 Pharmacy Profile Note 0 ml @ 0 mls/hr UNSCH OTHER 11/16/17 21:15 Metronidazole 100 ml @ 100 mls/hr Q8H IV 11/17/17 00:00 11/17/17 00:15 Azithromycin 500 mg/Sodium Chloride 250 ml @ 250 mls/hr Q24H IV 11/16/17 22:00 11/17/17 00:15 Heparin Sodium/ Dextrose 250 ml @ 8 mls/hr TITRATE PRN IV 11/17/17 02:15 11/17/17 03:54 (Pepcid Inj) 20 mg DAILY IV PUSH 11/17/17 09:00 Sodium Chloride 1,000 ml @ 84 mls/hr [id number] IV 11/17/17 04:45 11/17/17 06:02 Family History Positive for carotid artery disease. Social History No tobacco, alcohol or IV drug use Physical Exam Vital Signs Vital Signs Date Time Temp Pulse Resp B/P (MAP) Pulse Ox O2 Delivery O2 Flow Rate FiO2 11/17/17 08:08 100 40 11/17/17 06:00 65 11/17/17 04:00 98.4 67 22 97/54 (68) 100 11/17/17 04:00 67 11/17/17 04:00 100 11/17/17 03:41 100 50 11/17/17 02:00 78 11/17/17 00:00 94 11/17/17 00:00 100 11/17/17 00:00 100.6 94 28 89/64 (72) 100 11/16/17 22:55 101.3 102 28 122/63 (82) 100 11/16/17 22:55 100 11/16/17 22:51 104 11/16/17 22:35 100 100 11/16/17 22:08 102.9 115 26 97 50 11/16/17 22:05 96 50 11/16/17 21:00 104.4 105 28 113/68 (83) 94 Ventilator 100 11/16/17 20:40 107 164/110 11/16/17 20:25 97 100 11/16/17 20:19 120 20 11/16/17 20:18 110 137/85 (102) 11/16/17 20:17 100 11/16/17 20:13 97.5 124 20 Physical Exam GENERAL: Well-nourished, well-developed patient, Intubated but responding to commands SKIN: Warm and dry. HEAD: Normocephalic. EYES: No scleral icterus. No injection or drainage. NECK: Supple, trachea midline. No JVD or lymphadenopathy. CARDIOVASCULAR: Regular rate and rhythm without murmurs, gallops, or rubs. RESPIRATORY: Breath sounds equal bilaterally. No accessory muscle use. GASTROINTESTINAL: Abdomen soft, non-tender, nondistended. EXTREMITIES: No cyanosis, or edema. NEUROLOGICAL: Awake, alert, and oriented x 3. Non-focal. Laboratory Laboratory Tests Test 11/16/17 20:40 11/16/17 21:02 11/16/17 21:15 11/16/17 23:11 White Blood Count 15.6 Red Blood Count 5.82 Hemoglobin 18.0 Hematocrit 53.1 Mean Corpuscular Volume 91.3 Mean Corpuscular Hemoglobin 31.0 Mean Corpuscular Hemoglobin Concent 33.9 Red Cell Distribution Width 16.6 Platelet Count 263 Mean Platelet Volume 10.8 Neutrophils (%) (Auto) 76.1 Lymphocytes (%) (Auto) 13.4 Monocytes (%) (Auto) 9.3 Eosinophils (%) (Auto) 0.2 Basophils (%) (Auto) 1.0 Neutrophils # (Auto) 11.9 Lymphocytes # (Auto) 2.1 Monocytes # (Auto) 1.4 Eosinophils # (Auto) 0.0 Basophils # (Auto) 0.2 CBC Comment DIFF FINAL Differential Comment Blood Gas Puncture Site LT BRACHIAL Blood Gas Patient Temperature 98.6 Blood Gas HCO3 19 Blood Gas Base Excess -6.4 Blood Gas Oxygen Saturation 99 Arterial Blood pH 7.31 Arterial Blood Partial Pressure CO2 38 Arterial Blood Partial Pressure O2 456 Arterial Blood Oxygen Content 27.1 Arterial Blood Carboxyhemoglobin 0.8 Arterial Blood Methemoglobin 0.5 Blood Gas Hemoglobin 18.8 Oxygen Delivery Device VENT Blood Gas Ventilator Setting SEE COMMENTS Blood Gas Inspired Oxygen 100 Urine Color YELLOW Urine Turbidity HAZY Urine pH 6.5 Urine Specific [place] 1.019 Urine Protein 300 Urine Glucose (UA) TRACE Urine Ketones NEG Urine Occult Blood MOD Urine Nitrite NEG Urine Bilirubin NEG Urine Urobilinogen LESS THAN 2.0 Urine Leukocyte Esterase NEG Urine RBC 53 Urine WBC 38 Urine Squamous Epithelial Cells 8 Urine Amorphous Sediment RARE Urine Bacteria MANY Urine Hyaline Casts 3 Urine Mucus FEW Microscopic Urinalysis Comment CULTURE INDICATED Lactic Acid Level 5.8 Test 11/16/17 23:45 11/17/17 00:31 11/17/17 02:53 11/17/17 06:05 Nasal Screen MRSA (PCR) MRSA NOT DETECTED Blood Urea Nitrogen 39 42 Creatinine 1.95 1.99 Random Glucose 189 201 Total Protein 5.6 5.1 Albumin 2.2 2.1 Calcium Level 8.1 7.7 Phosphorus Level 4.7 4.0 Magnesium Level 1.8 1.6 Alkaline Phosphatase 99 96 Aspartate Amino Transf (AST/SGOT) 4277 4938 Alanine Aminotransferase (ALT/SGPT) 2408 2581 Total Bilirubin 3.3 2.7 Sodium Level 140 142 Potassium Level 5.0 4.0 Chloride Level 104 106 Carbon Dioxide Level 23.0 22.9 Anion Gap 13 13 Estimat Glomerular Filtration Rate 26 25 Total Creatine Kinase 468 401 Creatine Kinase MB 6.0 6.1 Creatine Kinase MB % 1.3 1.5 Troponin I 1.13 1.41 Thyroid Stimulating Hormone 3rd Gen 0.951 Digoxin Level 1.5 White Blood Count 14.7 Red Blood Count 5.69 Hemoglobin 16.7 Hematocrit 50.8 Mean Corpuscular Volume 89.2 Mean Corpuscular Hemoglobin 29.3 Mean Corpuscular Hemoglobin Concent 32.9 Red Cell Distribution Width 16.1 Platelet Count 134 Mean Platelet Volume 9.5 Neutrophils (%) (Auto) 87.2 Lymphocytes (%) (Auto) 7.5 Monocytes (%) (Auto) 5.0 Eosinophils (%) (Auto) 0.0 Basophils (%) (Auto) 0.3 Neutrophils # (Auto) 12.8 Lymphocytes # (Auto) 1.1 Monocytes # (Auto) 0.7 Eosinophils # (Auto) 0.0 Basophils # (Auto) 0.0 CBC Comment DIFF FINAL Differential Comment Prothrombin Time 28.5 Prothromb Time International Ratio 2.8 Activated Partial Thromboplast Time 37.2 Lactic Acid Level 2.7 Urine Eosinophils 0-2 Urine Random Creatinine 37.1 Urine Random Sodium 50 Date/Time Source Procedure Growth Status 11/16/17 21:15 Blood Peripheral Aerobic Blood Culture Pending Received 11/16/17 21:15 Blood Peripheral Anaerobic Blood Culture Pending Received 11/16/17 21:15 Nasal Aspirate Influenza Types A,B Antigen (NIC) - Final NEGATIVE FOR FLU A AND B ANTIGEN.... Complete 11/16/17 21:15 Urine Random Urine Urine Culture Pending Worksheet Result Diagram: 11/17/17 0253 11/17/17 0253 Imaging Last Impressions Chest X-Ray 11/16/17 0000 Signed Impressions: Service Date/Time: November 20:52 - CONCLUSION: Bilateral airspace disease greatest in the left lower lobe. Gato Garcia MD Assessment and Plan Problem List: (1) Chronic systolic heart failure ICD Codes: I50.22 - Chronic systolic (congestive) heart failure Status: Acute Plan: 67 y/o F with acute on chronic systolic heart failure. She has a known history of HF with last MPI 2015 showing severe LV systolic dysfunction EF 18% and NO reversible ischemia. At home she is on BB, Entresto, OAC and Simvastatin. This time around presents with SOB/HF found to have elevated troponin, no ischemic changes on EKG LBBB and no complaints of chest pain. She remains intubated and improving from respiratory standpoint. Regarding Labs she has MICHELE, UTI, elevated LFT's and elevated troponin concerning with ACS however at this point given infection Tmax 104.4, OAC and MICHELE she is not an ideal candidate for any invasive cardiac risk stratification strategy and benefits outweighs risks. Recs aggressive medical management for CAD and HF, rate control for afib, hold OAC, avoid nephro and hepatotoxic drugs. Recommendations; 1. 2 Decho 2. Strict I&O 3. Low salt diet 4. Wean extubation per Base Engineer 5. IV diuresis 6. ASA and Heparin drip if no contraindications 7. Cont home Metoprolol 8. Hold ACEi given MICHELE 9. Hold statin given elevated LFT's 10. AICD interrogation 11. ABD U/S 12. Panculture Thank you for the opportunity to participate in the care of this patient (2) Leukocytosis ICD Codes: D72.829 - Elevated white blood cell count, unspecified (3) Community acquired pneumonia ICD Codes: J18.9 - Pneumonia, unspecified organism (4) Chronic anticoagulation ICD Codes: Z79.01 - halfway (current) use of anticoagulants (5) Atrial fibrillation with rapid ventricular response ICD Codes: I48.91 - Unspecified atrial fibrillation (6) Acute respiratory failure with hypoxia and hypercapnia ICD Codes: J96.01 - Acute respiratory failure with hypoxia; J96.02 - Acute respiratory failure with hypercapnia (7) Sepsis ICD Codes: A41.9 - Sepsis, unspecified organism (8) Cardiomyopathy ICD Codes: I42.9 - Cardiomyopathy Status: Chronic (9) AICD (automatic cardioverter/defibrillator) present ICD Codes: Z95.810 - AICD (automatic cardioverter/defibrillator) present Status: Acute Problem Qualifiers (1) Leukocytosis: Qualified Codes: D72.829 - Elevated white blood cell count, unspecified (2) Community acquired pneumonia: Qualified Codes: J18.1 - Lobar pneumonia, unspecified organism (3) Sepsis: Qualified Codes: A41.9 - Sepsis, unspecified organism Naveed Joel MD Nov 17, 2017 09:04
[2017-11-17] MEDS: FAMOTIDINE 20 MG/2 ML VIAL IV PUSH SCH (09:39)
[2017-11-17] MEDS: CHLORHEXIDINE 0.12% (ORAL KIT) 15 ML CUP MT SCH ×2 (09:40→20:53)
[2017-11-17] MEDS ORDERED: MORPHINE SULFATE 2 MG/ML INJ IV ONE (10:15)
--- NOTE | 2017-11-17 11:18 | RADRPT ---
EXAM DATE/TIME: 11/17/2017 08:50 [place] COMPARISON: No previous studies available for comparison. INDICATIONS : Increased lab values. MEDICAL HISTORY : Myocardial infarction. Congestive heart failure. Hypercholesterolemia. Afib. HTN. COPD. Pneumonia. Dy spnea. Arthritis. Osteoporosis. Renal carcinoma. Diabetes. Anxiety. SURGICAL HISTORY : Tonsillectomy. Pacemaker. Hysterectomy. Right nephrectomy. ENCOUNTER: Initial ACUITY: 1 day PAIN SCORE: Nonresponsive. LOCATION: Abdomen. MEASUREMENTS: LIVER: 19.1 cm length COMMON DUCT: 5 mm RIGHT KIDNEY: Nephrectomy LEFT KIDNEY: 13.3 x 5.5 x 5.9 cm SPLEEN: 13.1 cm length AORTA: 1.7cm maximal FINDINGS: LIVER: Normal echotexture without focal lesion or ductal dilatation. Trace ascites is present. COMMON DUCT: No intraluminal mass or stone visualized. GALLBLADDER: There is gallbladder wall thickening to 6 mm with pericholecystic fluid without stones. Cholecystitis is not excluded. PANCREAS: The visualized portions are within normal limits. RIGHT KIDNEY: No hydronephrosis, stone or mass. LEFT KIDNEY: No hydronephrosis, stone or mass. SPLEEN: No focal lesion. AORTA: Non aneurysmal. IVC: Within normal limits. CONCLUSION: 1. Gall bladder wall but seen without stones. Cholecystitis is not excluded. Radionuclide imaging is recommended for further evaluation if clinically indicated. Rigoberto Hutton MD on November 17, 2017 at 11:13 Board Certified Radiologist. This report was verified electronically.
[2017-11-17 13:01] LABS: TROPONIN I 1.06 NG/ML (0.02-0.05)
[2017-11-17] MEDS: DEXTROSE 50% IN WATER 50 ML VIAL(D50) IV PUSH PRN ×2 (13:15→13:45)
--- NOTE | 2017-11-17 13:16 | HHI.CCPN ---
Subjective Remarks/Hospital Course 11/16: 67-year-old female. Date of admission 11/16/2017. Past medical history includes chronic systolic heart failure ejection fraction 25%, hypertension, dyslipidemia, atrial fibrillation on chronic rivaroxaban, renal cell cancer status post nephrectomy, diabetes. Patient resisted Dixon of the today for 2-3 day history of shortness of breath, fevers. Patient has not precipitated been on antibiotics. No recent sick contacts or travels. In route , patient asked me intubated was received lorazepam and etomidate. Patient was "intubated" due to CHF vs PNA. Received Furosemide in route. Currently no laboratories or chest x-ray or EKG have been performed at the present time. We are asked to admit the patient. 11/17: Remains sedated, orally intubated on mechanical ventilation. Arousable, following commands. Objective Vital Signs Date Time Temp Pulse Resp B/P (MAP) Pulse Ox O2 Delivery O2 Flow Rate FiO2 11/17/17 10:10 94 40 11/17/17 06:00 65 11/17/17 04:00 98.4 22 97/54 (68) 11/16/17 21:00 Ventilator Intake and Output 11/17/17 11/17/17 11/18/17 08:00 16:00 00:00 Intake Total 1550 ml Output Total 575 ml Balance 975 ml Result Diagram: 11/17/17 0253 11/17/17 0253 Other Results Microbiology Date/Time Source Procedure Growth Status 11/16/17 21:15 Nasal Aspirate Influenza Types A,B Antigen (NIC) - Final NEGATIVE FOR FLU A AND B ANTIGEN.... Complete 11/16/17 21:15 Urine Catheterized Urine Legionella Antigen - Final PRESUMPTIVE NEGATIVE FOR LEGIONELLA P... Complete 11/16/17 21:15 Urine Catheterized Urine Streptococcus pneumoniae Antigen (M - Final PRESUMPTIVE NEGATIVE FOR STREPTOCOCCU... Complete Laboratory Tests Test 11/16/17 21:02 Blood Gas Puncture Site LT BRACHIAL Blood Gas Patient Temperature 98.6 Blood Gas HCO3 19 mmol/L (22-26) Blood Gas Base Excess -6.4 mmol/L (-2-2) Blood Gas Oxygen Saturation 99 % (90-100) Arterial Blood pH 7.31 (7.380-7.420) Arterial Blood Partial Pressure CO2 38 mmHg (38-42) Arterial Blood Partial Pressure O2 456 mmHG (61-120) Arterial Blood Oxygen Content 27.1 Vol % (12.0-20.0) Arterial Blood Carboxyhemoglobin 0.8 % (0-4) Arterial Blood Methemoglobin 0.5 % (0-2) Blood Gas Hemoglobin 18.8 G/DL (12.0-16.0) Oxygen Delivery Device VENT Blood Gas Ventilator Setting SEE COMMENTS Blood Gas Inspired Oxygen 100 % Imaging Last Impressions Chest X-Ray 11/16/17 0000 Signed Impressions: Service Date/Time: November 20:52 - CONCLUSION: Bilateral airspace disease greatest in the left lower lobe. Gato Garcia MD Objective Remarks GENERAL: 67 -year-old currently orotracheally intubated SKIN: Warm and dry. No rash HEAD: Atraumatic. Normocephalic. EYES: Pupils equal and round around 3 mm bilaterally. No scleral icterus. No injection or drainage. ENT: No nasal bleeding or discharge. Mucous membranes pink and moist. NECK: Trachea midline. No JVD. CARDIOVASCULAR: Tachycardia, IR. S1, S2 no S4 no murmur.. RESPIRATORY: Diminished. Few crackles patient bases bilaterally. No wheeze GASTROINTESTINAL: Abdomen soft, non-tender, nondistended. Positive bowel sounds MUSCULOSKELETAL: Extremities without significant peripheral edema. No obvious deformities. NEUROLOGICAL: Cranial nerves II through XII grossly intact. Withdraws to pain in all 4 extremities. Positive gag. Positive corneal reflex. A/P Assessment and Plan Neuro/Psych: Patient is currently propofol/fentanyl drips for sedation/analgesia while intubated Goal of RA SS -2 Daily sedation vacation Acetaminophen 650 mg every 6 hours when necessary fever discontinue secondary to elevated transaminases CV: Ischemic cardiomyopathy Atrial fibrillation with rapid ventricular response Hypertension Dyslipidemia History of AICD Lactic acidosis Currently nitroglycerin drip. - A. fib with RVR. Left bundle branch block. troponin elevated. Cardiology consulted. 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 This is been held. Acute kidney injury. Resp: Acute hypoxic hypercapnic respiratory failure [facility] 16/500/11/17/39 Ventilator bundle Albuterol/ipratropium aerosols every 6 hours albuterol aerosols every 2 hours. Dyspnea Spontaneous breathing trials daily Chest x-ray revealed bilateral lower lobe infiltrates. GI: Elevated transaminases Patient is currently nothing by mouth NGT to LIWS Famotidine for GI prophylaxis Docusate/senna for bowel regimen Liver ultrasound/hepatitis panel pending. CPK 400 : Delgado catheter for accurate I's nose any critically ill patient Endo: Diabetes mellitus Holding insulin glargine 12 units at night. Sliding-scale insulin with Accu-Cheks every 6 hours to maintain euglycemia. Novulin R moderate regimen Check TSH Renal: History of renal cell carcinoma status post nephrectomy Acute kidney injury creatinine elevated 1.99. Strict intake output, monitor and replete electrolytes, follow BUN creatinine. Avoid nephrotoxic drugs Follow-up renal ultrasound/eosinophils and urine electrolytes Heme: Leukocytosis polycythemia Chronic Rivaroxaban use Monitor CBC daily. Follow trends Elevated coagulopathy state likely secondary to shock liver. Recheck in a.m. ID: Pyyrexia Temperature is currently 100F Recommend obtaining blood cultures, urine culture and sputum culture Recommend obtaining influenza Check urine Legionella pneumococcal antigen Received 1 dose of piperacillin/tazobactam in the ED noted allergy to penicillin. Started on vancomycin, aztreonam, metronidazole and azithromycin FEN: Recommend obtaining electrolytes and replace as clinically indicated MSK: pt EVAL and treat Access - Utilize peripheral IV. Central line if indicated Prophylaxis - GI - pantoprazole - DVT - SCD/coags and platelet count prior to initiating pharmacological prophylaxis d/w Dr. Chance, D/W STAFF EDITOR Delmar Otoole MD Nov 17, 2017 13:15
[2017-11-17 13:48] LABS: HEPATITIS C AB IgG NEGATIVE (NEGATIVE)
[2017-11-17 13:54] LABS: HEPATITIS A AB IGM NEGATIVE (NEGATIVE); HEPATITIS B CORE AB IGM NEGATIVE (NEGATIVE); HEPATITIS B SURFACE ANTIGEN NEGATIVE (NEGATIVE)
--- NOTE | 2017-11-17 16:14 | ECHRPT ---
Indication: HEART FAILURE CONCLUSIONS The left ventricular systolic function is severely reduced with an estimated ejection fraction less than 20%. Normal left ventricular size. Wall thickness is normal. There is global left ventricular dysfunction. The left atrial size is moderately dilated. The right atrial size is moderately dilated. There is a pacemaker wire present in the right atrial cavity. [id number] mitral valve regurgitation. There is mild tricuspid valve regurgitation. There is estimated mild pulmonary hypertension present (range 40-50 mmHg). Trivial pulmonary valve regurgitation. BP: 97 / 54 HR: 67 Rhythm: Sinus MEASUREMENTS (Male / Female) Normal Values Technical Quality:Fair 2D ECHO LV Diastolic Diameter PLAX 5.5 cm 4.2 - 5.9 / 3.9 - 5.3 cm LV Systolic Diameter PLAX 5.2 cm IVS Diastolic Thickness 1.1 cm 0.6 - 1.0 / 0.6 - 0.9 cm LVPW Diastolic Thickness 1.1 cm 0.6 - 1.0 / 0.6 - 0.9 cm LV Relative Wall Thickness 0.4 RV Internal Dim ED PLAX 2.4 cm LVOT Diameter 1.9 cm LA Systolic Diameter LX 4.6 cm 3.0 - 4.0 / 2.7 - 3.8 cm LV Ejection Fraction MOD 4C 10.9 % LV Cardiac Index MOD 4C 478.8 cm/minm LV Ejection Fraction 4C AL 13.9 % LV Cardiac Index 4C AL 652.9 cm/minm M-MODE Aortic Root Diameter MM 2.4 cm LA Systolic Diameter MM 3.8 cm LA Ao Ratio MM 1.6 AV Cusp Separation MM 1.3 cm DOPPLER AV Peak Velocity 110.0 cm/s AV Peak Gradient 4.8 mmHg LVOT Peak Velocity 81.4 cm/s LVOT Peak Gradient 2.7 mmHg AV Area Cont Eq pk 2.1 cm MV Area PHT 5.8 cm Mitral E Point Velocity 102.0 cm/s Mitral A Point Velocity 33.1 cm/s Mitral E to A Ratio 3.1 LV E' Lateral Velocity 6.9 cm/s Mitral E to LV E' Lateral Ratio 14.7 TR Peak Velocity 309.0 cm/s TR Peak Gradient 38.2 mmHg Right Atrial Pressure 10.0 mmHg Pulmonary Artery Systolic Pressu 48.2 mmHg Right Ventricular Systolic Press 48.2 mmHg PV Peak Velocity 221.0 cm/s PV Peak Gradient 19.5 mmHg FINDINGS LEFT VENTRICLE The left ventricular systolic function is severely reduced with an estimated ejection fraction less than 20%. Normal left ventricular size. Wall thickness is normal. There is global left ventricular dysfunction. RIGHT VENTRICLE Normal right ventricular size and systolic function. LEFT ATRIUM The left atrial size is moderately dilated. RIGHT ATRIUM The right atrial size is moderately dilated. There is a pacemaker wire present in the right atrial cavity. ATRIAL SEPTUM Normal atrial septal thickness without atrial level shunting by limited color doppler interrogation. AORTA The aortic root and proximal ascending aorta are normal in size on limited imaging. MITRAL VALVE Structurally normal mitral valve. Juvn-[id number]-tvzzkfty mitral valve regurgitation. AORTIC VALVE Trileaflet aortic valve. TRICUSPID VALVE Structurally normal tricuspid valve. There is mild tricuspid valve regurgitation. There is estimated mild pulmonary hypertension present (range 40-50 mmHg). PULMONARY VALVE Trivial pulmonary valve regurgitation. VESSELS The inferior vena cava is normal in size. PERICARDIUM No pericardial effusion. Naveed Joel MD (Electronically Signed) Final Date:17 November 2017 16:13
[2017-11-17] MEDS ORDERED: MIDAZOLAM 100 MG/100 ML INJ 100 ML IV PRN (20:15)
[2017-11-17] MEDS ORDERED: MAGNESIUM SULFATE 1 GM PREMIX 100 ML IV ONE (20:15)
[2017-11-17] MEDS: MAGNESIUM SULFATE 1 GM PREMIX 100 ML IV SCH ×2 (22:14→23:15)
--- NOTE | 2017-11-17 22:36 | EKG ---
Date Performed: 11/16/2017 Time Performed: 20:22:54 PTAGE: 67 years EKG: ATRIAL FIBRILLATION WITH RAPID VENTRICULAR RESPONSE MARKED RIGHT AXIS DEVIATION INTRAVENTRI CULAR CONDUCTION DELAY ABNORMAL ECG NO PREVIOUS TRACING DOCTOR: Loy Glasgow Interpretating Date/Time 11/17/2017 22:36:00
[2017-11-18] VITALS (17 sets, daily range): BP systolic 86–127; BP diastolic 52–67; PULSE 90–124; RESP 18–28; TEMP 98.5–100.5; O2SAT 95–99
[2017-11-18] MEDS: CHLORHEXIDINE GLUCONATE 2 % 1 PACK (2 CLOTHS) TOP SCH (04:00)
[2017-11-18] MEDS: RESP: ALBUTEROL 2.5 MG/IPRATROPIUM 0.5 MG NEB (SCH) INH ×4 (04:50→21:01)
[2017-11-18] MEDS: INSULIN NovoLIN REGULAR SUPPLEMENTAL SCALE SQ SCH ×3 (06:00→18:00)
[2017-11-18 06:29] LABS: AUTOMATED NEUTROPHIL # 9.3 TH/MM3 (1.8-7.7); BASOPHIL # 0.2 TH/MM3 (0-0.2); BASOPHIL % 1.4 % (0.0-2.0); EOSINOPHIL # 0.1 TH/MM3 (0-0.4); EOSINOPHIL % 0.7 % (0.0-4.0); HEMATOCRIT 49.9 % (35.0-46.0); HEMOGLOBIN 16.4 GM/DL (11.6-15.3); LYMPH % 14.8 % (9.0-44.0); LYMPHOCYTE # 1.8 TH/MM3 (1.0-4.8); MEAN CELL VOLUME 89.6 FL (80.0-100.0); MEAN CORPUSCULAR HEMOGLOBIN 29.4 PG (27.0-34.0); MEAN CORPUSCULAR HGB CONC 32.9 % (32.0-36.0); MEAN PLATELET VOLUME 9.5 FL (7.0-11.0); MONO % 7.2 % (0.0-8.0); MONOCYTE # 0.9 TH/MM3 (0-0.9); NEUT % 75.9 % (16.0-70.0); PLATELET COUNT 119 TH/MM3 (150-450); RED BLOOD COUNT 5.57 MIL/MM3 (4.00-5.30); RED CELL DISTRIBUTION WIDTH 16.3 % (11.6-17.2); WHITE BLOOD COUNT 12.2 TH/MM3 (4.0-11.0)
[2017-11-18 06:47] LABS: INTERNATIONAL NORMALIZED RATIO 2.3 RATIO; PROTHROMBIN TIME - PATIENT 23.2 SEC (9.8-11.6)
[2017-11-18] MEDS: AZTREONAM INJ 2,000 MG in SODIUM CHLORIDE 0.9% INJ 100 ML IV SCH (06:52)
[2017-11-18] MEDS: SODIUM CHLOR 0.9% 1000 ML INJ 1,000 ML IV SCH (06:53)
[2017-11-18 07:48] LABS: ALBUMIN 1.8 GM/DL (3.4-5.0); BICARBONATE 23.9 MEQ/L (21.0-32.0); CALCIUM 7.2 MG/DL (8.5-10.1); CALCIUM-PROTEIN CORRECTED 8.5 MG/DL (8.5-10.1); CREATININE 1.86 MG/DL (0.50-1.00); DIGOXIN 0.9 NG/ML (0.8-2.0); MAGNESIUM 2.5 MG/DL (1.5-2.5); PHOSPHORUS 3.4 MG/DL (2.5-4.9); TOTAL BILIRUBIN ADULT 1.1 MG/DL (0.2-1.0); TOTAL PROTEIN 4.7 GM/DL (6.4-8.2)
[2017-11-18] MEDS ORDERED: VANCOMYCIN 1,000 MG/NS 250 ML IV SCH ×2 (09:00)
[2017-11-18] MEDS: ARTIFICIAL TEARS OPTH SOLN 15 ML BTL EACH EYE SCH ×3 (09:00→18:00)
[2017-11-18] MEDS: CHLORHEXIDINE 0.12% (ORAL KIT) 15 ML CUP MT SCH ×2 (09:45→20:00)
[2017-11-18] MEDS: SODIUM CHLORIDE 0.9% FLUSH 10 ML FLUSH IV FLUSH SCH ×2 (09:46→20:50)
[2017-11-18] MEDS: metroNIDAZOLE 500 MG INJ 100 ML IV SCH ×2 (09:46→16:43)
[2017-11-18] MEDS: DOCUSATE SODIUM 50 MG/SENNA 8.6 MG TAB PO SCH ×2 (09:46→20:50)
[2017-11-18] MEDS: FAMOTIDINE 20 MG/2 ML VIAL IV PUSH SCH (09:47)
[2017-11-18] MEDS: HEPARIN-D5W 25,000 U/250 ML 250 ML IV PRN (09:53)
[2017-11-18] MEDS ORDERED: POTASSIUM CHLORIDE 25 MEQ EFFERVESCENT TAB OG-TUBE ONE (10:00)
[2017-11-18] MEDS: SACUBITRIL/VALSARTAN 49 MG-51 MG TAB PO SCH (10:15)
--- NOTE | 2017-11-18 10:15 | HHI.CCPN ---
Subjective Remarks/Hospital Course 11/16: 67-year-old female. Date of admission 11/16/2017. Past medical history includes chronic systolic heart failure ejection fraction 25%, hypertension, dyslipidemia, atrial fibrillation on chronic rivaroxaban, renal cell cancer status post nephrectomy, diabetes. Patient resisted [place] of the today for 2-3 day history of shortness of breath, fevers. Patient has not precipitated been on antibiotics. No recent sick contacts or travels. In route , patient asked me intubated was received lorazepam and etomidate. Patient was "intubated" due to CHF vs PNA. Received Furosemide in route. Currently no laboratories or chest x-ray or EKG have been performed at the present time. We are asked to admit the patient. 11/17: Remains sedated, orally intubated on mechanical ventilation. Arousable, following commands. 11/18: Awake and alert, following commands, orally intubated on mechanical ventilation. Tolerating tube feeds. Objective Vital Signs Date Time Temp Pulse Resp B/P (MAP) Pulse Ox O2 Delivery O2 Flow Rate FiO2 11/18/17 07:20 99 35 11/18/17 06:00 108 11/18/17 04:00 100.5 27 110/56 (74) 11/16/17 21:00 Ventilator Intake and Output 11/18/17 11/18/17 11/19/17 08:00 16:00 00:00 Intake Total 1794 ml Output Total 1300 ml Balance 494 ml Result Diagram: 11/18/17 0615 11/18/17 0615 Other Results Microbiology Date/Time Source Procedure Growth Status 11/16/17 21:15 Nasal Aspirate Influenza Types A,B Antigen (NIC) - Final NEGATIVE FOR FLU A AND B ANTIGEN.... Complete 11/16/17 21:15 Urine Random Urine Urine Culture - Final NO GROWTH IN 48 HOURS. Complete 11/16/17 21:15 Urine Catheterized Urine Legionella Antigen - Final PRESUMPTIVE NEGATIVE FOR LEGIONELLA P... Complete 11/16/17 21:15 Urine Catheterized Urine Streptococcus pneumoniae Antigen (M - Final PRESUMPTIVE NEGATIVE FOR STREPTOCOCCU... Complete Imaging Last Impressions Chest X-Ray 11/16/17 0000 Signed Impressions: Service Date/Time: November 20:52 - CONCLUSION: Bilateral airspace disease greatest in the left lower lobe. Gato aGrcia MD Objective Remarks GENERAL: 67 -year-old currently orotracheally intubated SKIN: Warm and dry. No rash HEAD: Atraumatic. Normocephalic. EYES: Pupils equal and round around 3 mm bilaterally. No scleral icterus. No injection or drainage. ENT: No nasal bleeding or discharge. Mucous membranes pink and moist. NECK: Trachea midline. No JVD. CARDIOVASCULAR: Tachycardia, IR. S1, S2 no S4 no murmur.. RESPIRATORY: Diminished. Few crackles patient bases bilaterally. No wheeze GASTROINTESTINAL: Abdomen soft, non-tender, nondistended. Positive bowel sounds MUSCULOSKELETAL: Extremities without significant peripheral edema. No obvious deformities. NEUROLOGICAL: Cranial nerves II through XII grossly intact. Awake and alert, orally intubated, following commands, moving all 4 extremities A/P Assessment and Plan Neuro/Psych: propofol/fentanyl drips for sedation/analgesia while intubated Goal of RASS -2 Daily sedation vacation Acetaminophen 650 mg every 6 hours when necessary fever discontinue secondary to elevated transaminases CV: Ischemic cardiomyopathy Atrial fibrillation with rapid ventricular response NSTEMI Hypertension Dyslipidemia History of AICD Lactic acidosis A. fib with RVR. Left bundle branch block. troponin elevated. Cardiology consulted. 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 Acute kidney injury. Resumed Entresto, metoprolol and Lasix 20 mg IV every 12 hourly on 11/18. Resp: Acute hypoxic hypercapnic respiratory failure PRVC 16/500///40 Ventilator bundle Albuterol/ipratropium aerosols every 6 hours albuterol aerosols every 2 hours. Dyspnea Spontaneous breathing trials daily Chest x-ray revealed bilateral lower lobe infiltrates. GI: Elevated transaminases Tolerating tube feeds Famotidine for GI prophylaxis Docusate/senna for bowel regimen Liver ultrasound/hepatitis panel pending. CPK 400 : Delgado catheter for accurate I's nose any critically ill patient Endo: Diabetes mellitus Holding insulin glargine 12 units at night. Sliding-scale insulin with Accu-Cheks every 6 hours to maintain euglycemia. Novulin R moderate regimen Check TSH Renal: History of renal cell carcinoma status post nephrectomy Acute kidney injury creatinine elevated 1.89. Strict intake output, monitor and replete electrolytes, follow BUN creatinine. Avoid nephrotoxic drugs Follow-up renal ultrasound/eosinophils and urine electrolytes Starting Lasix 20 mg IV every 12 hourly on 11/18 Heme: Leukocytosis polycythemia Chronic Rivaroxaban use Monitor CBC daily. Follow trends Elevated coagulopathy state likely secondary to shock liver. Recheck in a.m. ID: Pyyrexia Follow-up blood cultures, urine culture and sputum culture Influenza negative urine Legionella pneumococcal antigen negative Received 1 dose of piperacillin/tazobactam in the ED noted allergy to penicillin. On aztreonam, metronidazole, azithromycin. Vancomycin stopped on 11/18 FEN: Follow electrolytes and replace as clinically indicated MSK: pt EVAL and treat Access - Utilize peripheral IV. Central line if indicated Prophylaxis - GI - pantoprazole - DVT - SCD/coags and platelet count prior to initiating pharmacological prophylaxis D/W CUSTOMER CARE MANAGERDelmar Nathan MD Nov 18, 2017 10:15
[2017-11-18] MEDS: FUROSEMIDE 20 MG/2 ML VIAL IV PUSH SCH ×2 (11:29→18:46)
[2017-11-18] MEDS: POTASSIUM CHLORIDE 25 MEQ EFFERVESCENT TAB NG SCH (11:30)
[2017-11-18] MEDS ORDERED: CALCIUM GLUCONATE INJ 2 GM in DEXTROSE 5% IN WATER 100ML INJ 100 ML IV ONE ×2 (16:15)
[2017-11-18] MEDS: AZTREONAM 1,000 MG/NS 100 ML IV SCH ×2 (16:44)
[2017-11-18 18:41] LABS: CALCIUM 7.1 MG/DL (8.5-10.1); CREATININE 1.69 MG/DL (0.50-1.00); MAGNESIUM 2.1 MG/DL (1.5-2.5); PHOSPHORUS 2.6 MG/DL (2.5-4.9)
[2017-11-18 18:54] LABS: CALCIUM-PROTEIN CORRECTED 8.4 MG/DL (8.5-10.1); TOTAL PROTEIN 4.7 GM/DL (6.4-8.2)
[2017-11-18] MEDS: AZITHROMYCIN INJ 500 MG in SODIUM CHLOR 0.9% 250 ML INJ 250 ML IV SCH (20:50)
[2017-11-18] MEDS: METOPROLOL SUCCINATE 50 MG EXTENDED RELEASE TAB PO SCH (20:50)
[2017-11-19] VITALS (15 sets, daily range): BP systolic 99–140; BP diastolic 57–86; PULSE 77–119; RESP 16–24; TEMP 97.1–98.3; O2SAT 93–99
[2017-11-19] MEDS: metroNIDAZOLE 500 MG INJ 100 ML IV SCH ×4 (01:25→23:25)
[2017-11-19] MEDS: AZTREONAM 1,000 MG/NS 100 ML IV SCH ×8 (01:25→23:21)
[2017-11-19] MEDS: DEXTROSE 50% IN WATER 50 ML VIAL(D50) IV PUSH PRN (01:26)
[2017-11-19] MEDS: RESP: ALBUTEROL 2.5 MG/IPRATROPIUM 0.5 MG NEB (SCH) INH ×4 (03:57→21:57)
[2017-11-19] MEDS: CHLORHEXIDINE GLUCONATE 2 % 1 PACK (2 CLOTHS) TOP SCH (04:00)
[2017-11-19] MEDS: SODIUM CHLOR 0.9% 1000 ML INJ 1,000 ML IV SCH (04:10)
--- NOTE | 2017-11-19 04:59 | RADRPT ---
EXAM DATE/TIME: 11/19/2017 03:46 [facility] COMPARISON: CHEST SINGLE AP, November 16, 2017, 20:52. INDICATIONS : Shortness of breath, possible pulmonary disease. MEDICAL HISTORY : Myocardial infarction. Congestive heart failure. Hypercholesterolemia. A-fib Hypertension COPD SURGICAL HISTORY : Tonsillectomy. Nephrectomy, right. Hysterectomy. Pacemaker ENCOUNTER: Subsequent ACUITY: 3 days PAIN SCORE: Non-responsive. LOCATION: Bilateral chest FINDINGS: Single AP view of the chest. Endotracheal tube and nasogastric tube no longer seen. Mild elevation le ft diaphragm. Mild left lower lung zone atelectasis. Cardiomediastinal silhouette unchanged. No evide nce of pleural effusion or pneumothorax. AICD remains in place. CONCLUSION: 1. Endotracheal tube and nasogastric tube no longer seen. 2. Mild left basilar atelectasis. Manuelito High MD on November 19, 2017 at 4:57 Board Certified Radiologist. This report was verified electronically.
[2017-11-19] MEDS: CHLORHEXIDINE 0.12% (ORAL KIT) 15 ML CUP MT SCH ×2 (08:00→20:00)
[2017-11-19 08:09] LABS: ALBUMIN 1.7 GM/DL (3.4-5.0); BICARBONATE 26.3 MEQ/L (21.0-32.0); BLOOD UREA NITROGEN 35 MG/DL (7-18); CALCIUM 7.5 MG/DL (8.5-10.1); CHLORIDE 111 MEQ/L (98-107); CREATININE 1.44 MG/DL (0.50-1.00); GLUCOSE,RANDOM 95 MG/DL (74-106); SODIUM (NA) 146 MEQ/L (136-145)
[2017-11-19 08:24] LABS: ALKALINE PHOSPHATASE 102 U/L (45-117); ALT (GPT) 3220 U/L (10-53); AST (GOT) 2699 U/L (15-37); RANDOM VANCOMYCIN 12.6 COMMENT; TOTAL BILIRUBIN ADULT 1.3 MG/DL (0.2-1.0); TOTAL PROTEIN 4.9 GM/DL (6.4-8.2)
[2017-11-19] MEDS: SACUBITRIL/VALSARTAN 49 MG-51 MG TAB PO SCH (08:45)
[2017-11-19] MEDS: POTASSIUM CHLORIDE 25 MEQ EFFERVESCENT TAB NG SCH (08:45)
[2017-11-19] MEDS: DOCUSATE SODIUM 50 MG/SENNA 8.6 MG TAB PO SCH ×2 (08:45→21:30)
[2017-11-19] MEDS: METOPROLOL SUCCINATE 50 MG EXTENDED RELEASE TAB PO SCH ×2 (08:46→21:30)
[2017-11-19] MEDS: FUROSEMIDE 20 MG/2 ML VIAL IV PUSH SCH ×2 (08:47→18:46)
[2017-11-19] MEDS: FAMOTIDINE 20 MG/2 ML VIAL IV PUSH SCH (08:47)
[2017-11-19] MEDS: SODIUM CHLORIDE 0.9% FLUSH 10 ML FLUSH IV FLUSH SCH ×2 (08:48→21:31)
[2017-11-19] MEDS: ARTIFICIAL TEARS OPTH SOLN 15 ML BTL EACH EYE SCH ×3 (08:49→18:00)
--- NOTE | 2017-11-19 11:42 | HHI.CCPN ---
Subjective Remarks/Hospital Course 11/16: 67-year-old female. Date of admission 11/16/2017. Past medical history includes chronic systolic heart failure ejection fraction 25%, hypertension, dyslipidemia, atrial fibrillation on chronic rivaroxaban, renal cell cancer status post nephrectomy, diabetes. Patient resisted [place] of the today for 2-3 day history of shortness of breath, fevers. Patient has not precipitated been on antibiotics. No recent sick contacts or travels. In route , patient asked me intubated was received lorazepam and etomidate. Patient was "intubated" due to CHF vs PNA. Received Furosemide in route. Currently no laboratories or chest x-ray or EKG have been performed at the present time. We are asked to admit the patient. 11/17: Remains sedated, orally intubated on mechanical ventilation. Arousable, following commands. 11/18: Awake and alert, following commands, orally intubated on mechanical ventilation. Tolerating tube feeds. 11/19: clinically improving. extubated yesterday. on 2L o2 by [place]. tolerating diet. ROS negative and denies complaints. wants to go home. Objective Vital Signs Date Time Temp Pulse Resp B/P (MAP) Pulse Ox O2 Delivery O2 Flow Rate FiO2 11/19/17 10:00 119 11/19/17 08:00 97.1 24 104/81 (89) 98 11/19/17 07:44 Nasal Cannula 2.00 11/18/17 11:36 32 Intake and Output 11/19/17 11/19/17 11/20/17 08:00 16:00 00:00 Intake Total 3389 ml Output Total 2700 ml Balance 689 ml Result Diagram: 11/18/17 0615 11/19/17 0643 Other Results Microbiology Date/Time Source Procedure Growth Status 11/16/17 21:15 Nasal Aspirate Influenza Types A,B Antigen (NIC) - Final NEGATIVE FOR FLU A AND B ANTIGEN.... Complete 11/16/17 21:15 Urine Random Urine Urine Culture - Final NO GROWTH IN 48 HOURS. Complete 11/16/17 21:15 Urine Catheterized Urine Legionella Antigen - Final PRESUMPTIVE NEGATIVE FOR LEGIONELLA P... Complete 11/16/17 21:15 Urine Catheterized Urine Streptococcus pneumoniae Antigen (M - Final PRESUMPTIVE NEGATIVE FOR STREPTOCOCCU... Complete Imaging Last Impressions Chest X-Ray 11/16/17 0000 Signed Impressions: Service Date/Time: November 20:52 - CONCLUSION: Bilateral airspace disease greatest in the left lower lobe. Gato Garcia MD Objective Remarks GENERAL: 67 -year-old sitting up in bed, no acute distress. SKIN: Warm and dry. No rash HEAD: Atraumatic. Normocephalic. EYES: Pupils equal and round around 3 mm bilaterally. No scleral icterus. No injection or drainage. ENT: No nasal bleeding or discharge. Mucous membranes pink and moist. NECK: Trachea midline. No JVD. CARDIOVASCULAR: slightly tachycardic, irregularly irregular rhythm. afib by tele. RESPIRATORY: unlabored. equal chest rise. 2L nc. GASTROINTESTINAL: Abdomen soft, non-tender, nondistended. MUSCULOSKELETAL: Extremities without significant peripheral edema. No obvious deformities. NEUROLOGICAL: Awake and alert, follows commands, no focal deficits. A/P Assessment and Plan Assessment: 67yF with acute respiratory failure, community acquired pneumonia vs. CHF exacerbation, now clinically improving. stable for transfer out of ICU. stop ivf. d/c cal[place]. continue abx, guided by culture data. continue lasix and HF meds. consult hospitalists for ongoing management. Neuro/Psych: RASS goal 0. CV: Ischemic cardiomyopathy Atrial fibrillation with rapid ventricular response- now rate controlled. NSTEMI- type II secondary to demand ischemia Hypertension Dyslipidemia History of AICD Lactic acidosis initially A. fib with RVR. Left bundle branch block. troponin elevated. Cardiology consulted. 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 Acute kidney injury. Resumed Entresto, metoprolol and Lasix 20 mg IV every 12 hourly on 11/18. Resp: Acute hypoxic hypercapnic respiratory failure- improving. wean o2 by nc for goal spo2 > 90% aggressive pulmonary toilet. Albuterol/ipratropium aerosols every 6 hours albuterol aerosols every 2 hours. Dyspnea Chest x-ray revealed bilateral lower lobe infiltrates. OOB PT consult. GI: Elevated transaminases- secondary to shock liver heart healthy diet as tolerated. Famotidine for GI prophylaxis Docusate/senna for bowel regimen Liver ultrasound/hepatitis panel pending. CPK 400 : d/c caldwell. Endo: Diabetes mellitus Holding insulin glargine 12 units at night. Sliding-scale insulin with Accu-Cheks every 6 hours to maintain euglycemia. Novulin R moderate regimen Check TSH Renal: History of renal cell carcinoma status post nephrectomy Acute kidney injury- improving. creatinine elevated 1.89 initially. now downtrending. Avoid nephrotoxic drugs Lasix 20 mg IV every 12 hourly on 11/18 Heme: Leukocytosis polycythemia Chronic Rivaroxaban use Monitor CBC daily. Follow trends Elevated coagulopathy state likely secondary to shock liver. daily coags. ID: Pyyrexia Follow-up blood cultures, urine culture and sputum culture: currently NGTD Influenza negative urine Legionella pneumococcal antigen negative Received 1 dose of piperacillin/tazobactam in the ED noted allergy to penicillin. On aztreonam, metronidazole, azithromycin. Vancomycin stopped on 11/18 FEN: Follow electrolytes and replace as clinically indicated MSK: pt EVAL and treat Access - Utilize peripheral IV. Prophylaxis - GI - pantoprazole - DVT - SCD/heparin drip for ppx Troy Lamb MD Nov 19, 2017 11:42
[2017-11-19] MEDS: INSULIN NovoLIN REGULAR SUPPLEMENTAL SCALE SQ SCH ×4 (12:00→23:26)
[2017-11-19] MEDS: AZITHROMYCIN INJ 500 MG in SODIUM CHLOR 0.9% 250 ML INJ 250 ML IV SCH (21:31)
[2017-11-20] VITALS (11 sets, daily range): BP systolic 114–161; BP diastolic 70–87; PULSE 59–95; RESP 16–20; TEMP 97.4–98.4; O2SAT 94–99
[2017-11-20] MEDS: CHLORHEXIDINE GLUCONATE 2 % 1 PACK (2 CLOTHS) TOP SCH (03:30)
[2017-11-20] MEDS: RESP: ALBUTEROL 2.5 MG/IPRATROPIUM 0.5 MG NEB (SCH) INH ×4 (04:25→21:05)
[2017-11-20] MEDS: INSULIN NovoLIN REGULAR SUPPLEMENTAL SCALE SQ SCH ×2 (06:00→13:22)
[2017-11-20] MEDS: AZTREONAM 1,000 MG/NS 100 ML IV SCH ×6 (06:06→22:14)
[2017-11-20 07:10] LABS: HEMATOCRIT 48.4 % (35.0-46.0); MEAN CELL VOLUME 90.1 FL (80.0-100.0); MEAN CORPUSCULAR HEMOGLOBIN 29.9 PG (27.0-34.0); MEAN CORPUSCULAR HGB CONC 33.1 % (32.0-36.0); MEAN PLATELET VOLUME 10.2 FL (7.0-11.0); PLATELET COUNT 116 TH/MM3 (150-450); RED BLOOD COUNT 5.37 MIL/MM3 (4.00-5.30); RED CELL DISTRIBUTION WIDTH 16.8 % (11.6-17.2); WHITE BLOOD COUNT 10.1 TH/MM3 (4.0-11.0)
[2017-11-20 07:16] LABS: INTERNATIONAL NORMALIZED RATIO 1.5 RATIO; PROTHROMBIN TIME - PATIENT 15.1 SEC (9.8-11.6)
[2017-11-20 07:49] LABS: ALBUMIN 1.9 GM/DL (3.4-5.0); ALKALINE PHOSPHATASE 123 U/L (45-117); ALT (GPT) 2850 U/L (10-53); AST (GOT) 1572 U/L (15-37); BICARBONATE 23.4 MEQ/L (21.0-32.0); BLOOD UREA NITROGEN 33 MG/DL (7-18); CALCIUM 8.1 MG/DL (8.5-10.1); CHLORIDE 111 MEQ/L (98-107); GLOMERULAR FILTRATION RATE 35 ML/MIN (>89); GLUCOSE,RANDOM 100 MG/DL (74-106); SODIUM (NA) 144 MEQ/L (136-145); TOTAL BILIRUBIN ADULT 1.3 MG/DL (0.2-1.0); TOTAL PROTEIN 5.6 GM/DL (6.4-8.2)
[2017-11-20] MEDS: metroNIDAZOLE 500 MG INJ 100 ML IV SCH ×3 (08:00→15:50)
[2017-11-20] MEDS: CHLORHEXIDINE 0.12% (ORAL KIT) 15 ML CUP MT SCH ×2 (08:00→20:00)
[2017-11-20] MEDS: ARTIFICIAL TEARS OPTH SOLN 15 ML BTL EACH EYE SCH ×3 (09:00→17:34)
[2017-11-20] MEDS: DOCUSATE SODIUM 50 MG/SENNA 8.6 MG TAB PO SCH (09:00)
[2017-11-20] MEDS: FAMOTIDINE 20 MG/2 ML VIAL IV PUSH SCH (10:09)
[2017-11-20] MEDS: FUROSEMIDE 20 MG/2 ML VIAL IV PUSH SCH ×2 (10:10→17:30)
[2017-11-20] MEDS: POTASSIUM CHLORIDE 25 MEQ EFFERVESCENT TAB NG SCH (10:10)
[2017-11-20] MEDS: SODIUM CHLORIDE 0.9% FLUSH 10 ML FLUSH IV FLUSH SCH ×2 (10:11→21:00)
[2017-11-20] MEDS: SACUBITRIL/VALSARTAN 49 MG-51 MG TAB PO SCH (10:14)
[2017-11-20] MEDS: METOPROLOL SUCCINATE 50 MG EXTENDED RELEASE TAB PO SCH ×2 (10:15→22:12)
--- NOTE | 2017-11-20 14:21 | HHI.PR ---
Subjective Remarks Patient reports she is feeling better. Still having a wet cough. Ambulating better. Objective Vitals Vital Signs Date Time Temp Pulse Resp B/P (MAP) Pulse Ox O2 Delivery O2 Flow Rate FiO2 11/20/17 09:48 98 Nasal Cannula 2.00 11/20/17 08:00 97.8 91 20 125/87 (100) 98 11/20/17 04:00 98.4 77 16 125/79 (94) 99 11/20/17 04:00 Nasal Cannula 2.00 11/20/17 03:46 72 11/20/17 00:00 97.7 86 18 142/77 (98) 94 11/20/17 00:00 Nasal Cannula 2.00 11/19/17 23:34 94 11/19/17 22:00 99 Nasal Cannula 2.00 11/19/17 20:11 98.3 99 18 128/70 (89) 98 11/19/17 20:00 Nasal Cannula 2.00 11/19/17 20:00 89 11/19/17 17:20 97.7 99 16 120/80 (93) 99 11/19/17 16:59 95 Nasal Cannula 2.00 I/O 11/19/17 11/19/17 11/19/17 11/20/17 11/20/17 11/20/17 07:00 15:00 23:00 07:00 15:00 23:00 Intake Total 3389 ml 200 ml 820 ml 450 ml Output Total 2700 ml 1225 ml 350 ml Balance 689 ml 200 ml -405 ml 100 ml Intake Oral 720 ml IV Total 3389 ml 200 ml 100 ml 450 ml Output Urine Total 2700 ml 1225 ml 350 ml # Bowel Movements 0 1 Result Diagram: 11/20/17 0500 11/20/17 0500 Objective Remarks GENERAL: Obese female, in no apparent distress. CARDIOVASCULAR: Normal rate and regular rhythm without murmurs, gallops, or rubs. RESPIRATORY: Good respiratory efforts. Breath sounds diminished at the bases bilaterally. Faint rhonchi. GASTROINTESTINAL: Abdomen soft, non-tender, non-distended. Normal active bowel sounds MUSCULOSKELETAL: Extremities without cyanosis, or edema. NEURO: Alert & Oriented x4 to person, place, time, situation. Moves all ext x4 PSYCH: Appropriate mood and affect. A/P Problem List: (1) Acute respiratory failure with hypoxia and hypercapnia ICD Code: J96.01 - Acute respiratory failure with hypoxia; J96.02 - Acute respiratory failure with hypercapnia (2) Chronic systolic heart failure ICD Code: I50.22 - Chronic systolic (congestive) heart failure Status: Acute (3) Hypertension ICD Code: I10 - Essential (primary) hypertension (4) Dyslipidemia ICD Code: E78.5 - Hyperlipidemia, unspecified (5) Chronic anticoagulation ICD Code: Z79.01 - correction (current) use of anticoagulants (6) Atrial fibrillation with rapid ventricular response ICD Code: I48.91 - Unspecified atrial fibrillation (7) Leukocytosis ICD Code: D72.829 - Elevated white blood cell count, unspecified (8) Community acquired pneumonia ICD Code: J18.9 - Pneumonia, unspecified organism (9) Sepsis ICD Code: A41.9 - Sepsis, unspecified organism (10) Elevated levels of transaminase & lactic acid dehydrogenase ICD Code: R74.0 - Nonspecific elevation of levels of transaminase and lactic acid dehydrogenase [LDH] (11) Lactic acidosis ICD Code: E87.2 - Acidosis Assessment and Plan 67-year-old female with respiratory failure probably secondary to combination of CHF exacerbation and community-acquired pneumonia. The patient arrived intubated and has been in the ICU. Clinically improved and care has been transferred to the hospitalist service on the [facility] floor. Ischemic cardiomyopathy Atrial fibrillation with rapid ventricular response- now rate controlled. NSTEMI- type II secondary to demand ischemia Hypertension Dyslipidemia History of AICD initially A. fib with RVR. Left bundle branch block. troponin elevated. Cardiology consulted. Dr. Chance recommended intensive medical management. Status post heparin drip. Home medications include digoxin .250 mg daily, metoprolol 50 mg twice a day, moexipril 15 mg twice a day (lisinopril 5 mg daily held in acute kidney injury/ borderline blood pressure) Patient is on furosemide 40 mg twice a day with potassium chloride 20 mEq daily at home. Acute kidney injury. Resumed Entresto, metoprolol and Lasix 20 mg IV every 12 hourly on 11/18. Acute hypoxic hypercapnic respiratory failure: Improving. wean o2 by nc for goal spo2 > 90% aggressive pulmonary toilet. Albuterol/ipratropium aerosols every 6 hours albuterol aerosols every 2 hours. Dyspnea Treat pneumonia with antibiotics and heart failure with diuretics OOB PT consult. Pneumonia: Urine Legionella pneumococcal antigen negative On aztreonam, metronidazole, azithromycin. Vancomycin stopped on 11/18 Follow-up blood cultures, urine culture and sputum culture: currently NGTD Influenza negative Plan to transition to oral antibiotics tomorrow Elevated transaminases- secondary to shock liver. Improving heart healthy diet as tolerated. Hepatitis panel negative Diabetes mellitus: Holding insulin glargine 12 units at night. Sliding-scale insulin with Accu-Cheks every 6 hours to maintain euglycemia. Novolin R moderate regimen History of renal cell carcinoma status post nephrectomy Acute kidney injury- improving. Creatinine elevated 1.89 initially. now downtrending. Avoid nephrotoxic drugs Lasix 20 mg IV every 12 hourly on 11/18 Prophylaxis - GI - pantoprazole - DVT - SCD/heparin drip for ppx Discharge Planning Probable discharge in the next 1-2 days pending improvement Problem Qualifiers (1) Hypertension: Qualified Codes: I10 - Essential (primary) hypertension (2) Leukocytosis: Qualified Codes: D72.829 - Elevated white blood cell count, unspecified (3) Community acquired pneumonia: Qualified Codes: J18.1 - Lobar pneumonia, unspecified organism (4) Sepsis: Qualified Codes: A41.9 - Sepsis, unspecified organism Vladimir Godoy MD Nov 20, 2017 14:21
[2017-11-20] MEDS ORDERED: GLUCAGON 1 MG/ML VIAL OTHER PRN (14:30)
[2017-11-20] MEDS ORDERED: DEXTROSE 50% IN WATER 50 ML VIAL(D50) IV PUSH PRN (14:30)
[2017-11-20] MEDS: INSULIN ASPART SUPPLEMENTAL SCALE SQ SCH ×2 (16:56→22:13)
[2017-11-20] MEDS ORDERED: INSULIN DETEMIR 100 UNITS/ML VIAL SQ SCH (21:00)
[2017-11-20] MEDS: AZITHROMYCIN INJ 500 MG in SODIUM CHLOR 0.9% 250 ML INJ 250 ML IV SCH (22:14)
[2017-11-21] VITALS: BP 109/63; PULSE 85; RESP 16; TEMP 97.1; O2SAT 94
[2017-11-21] MEDS: metroNIDAZOLE 500 MG INJ 100 ML IV SCH ×2 (00:17→08:25)
[2017-11-21] MEDS: CHLORHEXIDINE GLUCONATE 2 % 1 PACK (2 CLOTHS) TOP SCH (03:10)
[2017-11-21 04:00] VITALS: BP_SYST 100; BP_SYST 103; BP_DIAS 52; BP_DIAS 73; PULSE 83; PULSE 99; RESP 16; RESP 18; TEMP 97.7; TEMP 98; O2SAT 95; O2SAT 96
[2017-11-21 04:26] VITALS: PULSE 90
[2017-11-21] MEDS: AZTREONAM 1,000 MG/NS 100 ML IV SCH ×2 (06:03)
[2017-11-21] MEDS: ARTIFICIAL TEARS OPTH SOLN 15 ML BTL EACH EYE SCH ×2 (07:31→12:08)
[2017-11-21] MEDS: CHLORHEXIDINE 0.12% (ORAL KIT) 15 ML CUP MT SCH (07:31)
[2017-11-21 08:00] VITALS: PULSE 80
[2017-11-21] MEDS: INSULIN ASPART SUPPLEMENTAL SCALE SQ SCH ×2 (08:00→12:00)
[2017-11-21 08:02] VITALS: BP 115/81; PULSE 93; RESP 18; TEMP 97.3; O2SAT 100; O2SAT 95
[2017-11-21] MEDS: SODIUM CHLORIDE 0.9% FLUSH 10 ML FLUSH IV FLUSH SCH (08:25)
[2017-11-21] MEDS: POTASSIUM CHLORIDE 25 MEQ EFFERVESCENT TAB NG SCH (08:26)
[2017-11-21] MEDS: FUROSEMIDE 20 MG/2 ML VIAL IV PUSH SCH (08:26)
[2017-11-21] MEDS: FAMOTIDINE 20 MG/2 ML VIAL IV PUSH SCH (08:26)
[2017-11-21] MEDS: METOPROLOL SUCCINATE 50 MG EXTENDED RELEASE TAB PO SCH (08:27)
[2017-11-21] MEDS: SACUBITRIL/VALSARTAN 49 MG-51 MG TAB PO SCH (08:27)
[2017-11-21] MEDS ORDERED: PRAVASTATIN SOD 40 MG TAB PO SCH (09:00)
[2017-11-21] MEDS ORDERED: RIVAROXABAN 20 MG TAB PO SCH (09:00)
[2017-11-21 09:54] LABS: ALBUMIN 2.1 GM/DL (3.4-5.0); BICARBONATE 22.3 MEQ/L (21.0-32.0); CALCIUM 8.7 MG/DL (8.5-10.1); CREATININE 1.73 MG/DL (0.50-1.00)
[2017-11-21 10:08] LABS: DIRECT BILIRUBIN ADULT 0.5 MG/DL (0.0-0.2); INDIRECT BILIRUBIN 0.6 MG/DL (0.0-0.8); TOTAL BILIRUBIN ADULT 1.1 MG/DL (0.2-1.0); TOTAL PROTEIN 6.2 GM/DL (6.4-8.2)
[2017-11-21 10:09] LABS: HEMATOCRIT 51.7 % (35.0-46.0); HEMOGLOBIN 17.2 GM/DL (11.6-15.3); MEAN CELL VOLUME 88.8 FL (80.0-100.0); MEAN CORPUSCULAR HEMOGLOBIN 29.5 PG (27.0-34.0); MEAN CORPUSCULAR HGB CONC 33.2 % (32.0-36.0); MEAN PLATELET VOLUME 10.2 FL (7.0-11.0); PLATELET COUNT 110 TH/MM3 (150-450); RED BLOOD COUNT 5.82 MIL/MM3 (4.00-5.30); RED CELL DISTRIBUTION WIDTH 16.5 % (11.6-17.2); WHITE BLOOD COUNT 8.7 TH/MM3 (4.0-11.0)
[2017-11-21] MEDS ORDERED: FURO20TA PO (11:30)
[2017-11-21] MEDS ORDERED: METO5TAB3 PO (11:32)
[2017-11-21] MEDS ORDERED: AZIT250T3 PO (11:37)
--- NOTE | 2017-11-21 11:44 | HHI.DCPOC ---
Discharge Care Plan Diagnosis: (1) Acute respiratory failure with hypoxia and hypercapnia (2) Pneumonia (3) Elevated LFTs (4) Acute on chronic systolic (congestive) heart failure (5) Atrial fibrillation with rapid ventricular response (6) Chronic anticoagulation Goals to Promote Your Health * To prevent worsening of your condition and complications * To maintain your health at the optimal level Directions to Meet Your Goals Take your medications as prescribed Follow your dietary instruction Follow activity as directed Keep your appointments as scheduled Take your immunizations and boosters as scheduled If your symptoms worsen call your PCP, if no PCP go to Urgent Care Center or Emergency Room Smoking is Dangerous to Your Health. Avoid second hand smoke Call the 24-hour hour crisis hotline for domestic abuse at Vladimir Godoy MD Nov 21, 2017 11:44
--- NOTE | 2017-11-21 11:44 | HHI.DS ---
Discharge Summary Admission Date Nov 16, 2017 at 21:22 Discharge Date: Nov 21, 2017 Admitting Diagnosis Acute respiratory failure (1) Acute respiratory failure with hypoxia and hypercapnia ICD Code: J96.01 - Acute respiratory failure with hypoxia; J96.02 - Acute respiratory failure with hypercapnia Diagnosis: Principal (2) Chronic systolic heart failure ICD Code: I50.22 - Chronic systolic (congestive) heart failure Diagnosis: Principal Status: Acute (3) Hypertension ICD Code: I10 - Essential (primary) hypertension Diagnosis: Principal (4) Dyslipidemia ICD Code: E78.5 - Hyperlipidemia, unspecified Diagnosis: Secondary (5) Chronic anticoagulation ICD Code: Z79.01 - custodial (current) use of anticoagulants Diagnosis: Principal (6) Atrial fibrillation with rapid ventricular response ICD Code: I48.91 - Unspecified atrial fibrillation Diagnosis: Principal (7) Leukocytosis ICD Code: D72.829 - Elevated white blood cell count, unspecified Diagnosis: Principal (8) Community acquired pneumonia ICD Code: J18.9 - Pneumonia, unspecified organism Diagnosis: Principal (9) Sepsis ICD Code: A41.9 - Sepsis, unspecified organism Diagnosis: Principal (10) Elevated levels of transaminase & lactic acid dehydrogenase ICD Code: R74.0 - Nonspecific elevation of levels of transaminase and lactic acid dehydrogenase [LDH] Diagnosis: Principal (11) Lactic acidosis ICD Code: E87.2 - Acidosis Diagnosis: Principal Procedures Intubation and extubation Brief History - From Admission 67-year-old female. Date of admission 11/16/2017. Past medical history includes chronic systolic heart failure ejection fraction 25%, hypertension, dyslipidemia, atrial fibrillation on chronic rivaroxaban, renal cell cancer status post nephrectomy, diabetes. Patient resisted [place] [facility] of the today for 2-3 day history of shortness of breath, fevers. Patient has not precipitated been on antibiotics. No recent sick contacts or travels. In route , patient asked me intubated was received lorazepam and etomidate. Patient was "intubated" due to CHF vs PNA. Received Furosemide in route. Currently no laboratories or chest x-ray or EKG have been performed at the present time. We are asked to admit the patient. CBC/BMP: 11/21/17 0801 11/21/17 0801 Significant Findings Laboratory Tests Test 11/18/17 17:10 11/19/17 06:43 11/20/17 05:00 11/21/17 08:01 Blood Urea Nitrogen 42 MG/DL (7-18) 35 MG/DL (7-18) 33 MG/DL (7-18) 39 MG/DL (7-18) Creatinine 1.69 MG/DL (0.50-1.00) 1.44 MG/DL (0.50-1.00) 1.50 MG/DL (0.50-1.00) 1.73 MG/DL (0.50-1.00) Total Protein 4.7 GM/DL (6.4-8.2) 4.9 GM/DL (6.4-8.2) 5.6 GM/DL (6.4-8.2) 6.2 GM/DL (6.4-8.2) Calcium Level 7.1 MG/DL (8.5-10.1) 7.5 MG/DL (8.5-10.1) 8.1 MG/DL (8.5-10.1) Sodium Level 146 MEQ/L (136-145) 146 MEQ/L (136-145) Chloride Level 113 MEQ/L (98-107) 111 MEQ/L (98-107) 111 MEQ/L (98-107) 108 MEQ/L (98-107) Estimat Glomerular Filtration Rate 30 ML/MIN (>89) 35 ML/MIN (>89) 29 ML/MIN (>89) Protein Corrected Calcium 8.4 MG/DL (8.5-10.1) Activated Partial Thromboplast Time 48.3 SEC (24.3-30.1) 35.5 SEC (24.3-30.1) Albumin 1.7 GM/DL (3.4-5.0) 1.9 GM/DL (3.4-5.0) 2.1 GM/DL (3.4-5.0) Aspartate Amino Transf (AST/SGOT) 2699 U/L (15-37) 1572 U/L (15-37) 582 U/L (15-37) Alanine Aminotransferase (ALT/SGPT) 3220 U/L (10-53) 2850 U/L (10-53) 1977 U/L (10-53) Total Bilirubin 1.3 MG/DL (0.2-1.0) 1.3 MG/DL (0.2-1.0) 1.1 MG/DL (0.2-1.0) Potassium Level 3.3 MEQ/L (3.5-5.1) 3.4 MEQ/L (3.5-5.1) Red Blood Count 5.37 MIL/MM3 (4.00-5.30) 5.82 MIL/MM3 (4.00-5.30) Hemoglobin 16.0 GM/DL (11.6-15.3) 17.2 GM/DL (11.6-15.3) Hematocrit 48.4 % (35.0-46.0) 51.7 % (35.0-46.0) Platelet Count 116 TH/MM3 (150-450) 110 TH/MM3 (150-450) Prothrombin Time 15.1 SEC (9.8-11.6) Alkaline Phosphatase 123 U/L (45-117) 133 U/L (45-117) Direct Bilirubin 0.5 MG/DL (0.0-0.2) Imaging Last Impressions Chest X-Ray 11/19/17 0600 Signed Impressions: Service Date/Time: Sunday, November 19, 2017 03:46 - CONCLUSION: 1. Endotracheal tube and nasogastric tube no longer seen. 2. Mild left basilar atelectasis. Manuelito High MD Abdomen Ultrasound 11/17/17 0000 Signed Impressions: Service Date/Time: Friday, November 17, 2017 08:50 - CONCLUSION: 1. Gall bladder wall but seen without stones. Cholecystitis is not excluded. Radionuclide imaging is recommended for further evaluation if clinically indicated. Rigoberto Hutton MD PE at Discharge GENERAL: Obese female, in no apparent distress. CARDIOVASCULAR: Normal rate and regular rhythm without murmurs, gallops, or rubs. RESPIRATORY: Good respiratory efforts. Breath sounds diminished at the bases bilaterally. Faint rhonchi. GASTROINTESTINAL: Abdomen soft, non-tender, non-distended. Normal active bowel sounds MUSCULOSKELETAL: Extremities without cyanosis, or edema. NEURO: Alert & Oriented x4 to person, place, time, situation. Moves all ext x4 PSYCH: Appropriate mood and affect. Pt update on day of discharge Patient reports she is feeling great. Eager to go home. Hospital Course 67-year-old female with respiratory failure probably secondary to combination of CHF exacerbation and community-acquired pneumonia. The patient arrived intubated and has been in the ICU. Clinically improved and care has been transferred to the hospitalist service on the [facility] floor. Evaluation and treatment course detailed below Ischemic cardiomyopathy Atrial fibrillation with rapid ventricular response- now rate controlled. NSTEMI- type II secondary to demand ischemia Hypertension Dyslipidemia History of AICD Acute on chronic systolic heart failure with EF less than 20% initially A. fib with RVR. Left bundle branch block. troponin elevated. Cardiology consulted. Dr. Chance recommended intensive medical management. Status post heparin drip. Home medications resumed to include digoxin .250 mg daily, metoprolol 50 mg twice a day Patient is on furosemide 40 mg twice a day with potassium chloride 20 mEq daily at home. Acute kidney injury. Resumed Entresto, metoprolol and Lasix 20 mg IV every 12 hourly on 11/18. Patient has been on metolazone at home once a week. Advised her to increase it to twice a week and follow-up with her brake adjuster. Acute hypoxic hypercapnic respiratory failure: Probably a combination of CHF and pneumonia. Much improved. Pneumonia and CHF treated successfully. Pneumonia: Urine Legionella pneumococcal antigen negative On aztreonam, metronidazole, azithromycin. Vancomycin stopped on 11/18 blood cultures, urine culture and sputum culture all negative Influenza negative Patient was transitioned to oral antibiotics to complete the course of treatment. Elevated transaminases- secondary to shock liver. Much improved. Hepatitis panel negative. Expect this to continue to improve. Patient advised to follow- up outpatient Diabetes mellitus: Resume home medications on discharge. History of renal cell carcinoma status post nephrectomy Acute kidney injury- ?CKD Creatinine elevated 1.89 initially. Trended down, then stabilized. She is advised to follow-up outpatient with her PCP and cardiology given all the diuretics she requires. Pt Condition on Discharge: Good Discharge Disposition: Discharge Home Discharge Time: > 30 minutes Discharge Instructions DIET: Follow Instructions for: Heart Healthy Diet Activities you can perform: Regular-No Restrictions Follow up Referrals: Cardiology - 2 Weeks Cardiology, Interventional @ [facility] PCP Follow-up - 2 Weeks PCP Follow-up New Medications: Azithromycin (Azithromycin) 250 Mg Tab 250 MG PO DAILY for Infection, #3 TAB 0 Refills Cefuroxime (Cefuroxime) 500 Mg Tab 500 MG PO BID for Infection, #10 TAB 0 Refills Furosemide (Furosemide) 20 Mg Tab 20 MG PO DAILY, #30 TAB 0 Refills Metolazone (Metolazone) 5 Mg Tab 5 MG PO DIRECTED, #30 TAB 0 Refills Take one tablet every 3 days. Continued Medications: Insulin Glargine Inj (Lantus Inj) 100 Unit/Ml Inj 15 UNIT SQ HS Metoprolol Succinate ER 24 HR (Metoprolol Succinate ER 24 HR) 50 Mg Tab 50 MG PO BID, #30 TAB 0 Refills Potassium Chloride ER (Potassium Chloride ER) 8 Meq Cap 8 MEQ PO BID for Electrolyte Replacement, #60 CAP 0 Refills Rivaroxaban (Xarelto) 10 Mg Tab 20 MG PO DAILY for Blood Clot Prevention, TAB 0 Refills Sacubitril-Valsartan (Entresto) 49-51 Mg Tab 1 TAB PO DAILY for Heart Failure, #30 TAB 0 Refills Simvastatin (Simvastatin) 20 Mg Tab 20 MG PO DAILY for Cholesterol Management, #30 TAB 0 Refills Vladimir Godoy MD Nov 21, 2017 11:44
[2017-11-21] MEDS ORDERED: CEFU1TAB20 PO (11:47)
[2017-11-21 12:02] VITALS: BP 129/88; PULSE 75; RESP 18; TEMP 97.4; O2SAT 97
== END 2017-11-21 14:16 | disposition home or self-care (01) | DRG 871 ==
LOC: NEPE 20:10 → NEDA 21:22 → HIME 22:40 → N04B 11-19 16:58
PROVIDERS: ADMIT Family Medicine; ATTEND Family Medicine
PROC: 5A1945Z Respiratory Ventilation, 24-96 Consecutive Hours (ICD-10-PCS; principal; 2017-11-16)
DX: A41.9 Sepsis, unspecified organism (principal); I50.23 Acute on chronic systolic (congestive) heart failure; K72.00 Acute and subacute hepatic failure without coma; I21.A1 Myocardial infarction type 2; J96.01 Acute respiratory failure with hypoxia; J96.02 Acute respiratory failure with hypercapnia; D68.9 Coagulation defect, unspecified; J18.9 Pneumonia, unspecified organism; E87.2 Acidosis; N17.9 Acute kidney failure, unspecified; J44.0 Chronic obstructive pulmonary disease with (acute) lower respiratory infection; I11.0 Hypertensive heart disease with heart failure; I48.91 Unspecified atrial fibrillation; D75.1 Secondary polycythemia; E11.9 Type 2 diabetes mellitus without complications; M19.90 Unspecified osteoarthritis, unspecified site; F41.9 Anxiety disorder, unspecified; E86.0 Dehydration; E78.5 Hyperlipidemia, unspecified; I25.5 Ischemic cardiomyopathy; M81.0 Age-related osteoporosis without current pathological fracture; I44.7 Left bundle-branch block, unspecified; R65.20 Severe sepsis without septic shock; Z79.01 Long term (current) use of anticoagulants; Z85.528 Personal history of other malignant neoplasm of kidney; Z90.5 Acquired absence of kidney; Z95.810 Presence of automatic (implantable) cardiac defibrillator; Z79.4 Long term (current) use of insulin
CPT/HCPCS: 31500; 36600; 51702; 71045; 76700; 76937; 80048; 80053; 80074; 80076; 80162; 80202; 81001; 82140; 82550; 82552; 82570; 82805; 82948; 83605; 83615; 83735; 83880; 84100; 84155; 84300; 84443; 84484; 85025; 85027; 85384; 85610; 85730; 87040; 87070; 87086; 87205; 87449; 87641; 87804; 93005; 93306; 94002; 94003; 94150; 94640; 94664; 94667; 94668; 96365; 96375; J0456; J0610; J1644; J1815; J1940; J2543; J3010; J3370; J3475; J7030; J7040; J7050

== ENCOUNTER 2018-01-12 07:23 | Inpatient (IN) | payer OTHER, MEDICARE ==
[~2018-01-12] VITALS: Ht 157.5 cm; Wt 78.6 kg
[2018-01-12] VITALS (22 sets, daily range): BP systolic 124–179; BP diastolic 60–114; PULSE 43–71; RESP 11–25; O2SAT 92–100
[~2018-01-12 07:23] MED LIST changes: +AZIT250T3 PO; +CEFU1TAB20 PO; -DIGO0.259 PO; +DOPamine 800 MG/500 ML INJ 500 ML IV ONE; -FURO1TAB93 PO; +FURO20TA PO; +LANTUS2P SQ; -LANTUSP SQ; -LEVA500T PO; +LIDOCAINE HCL 2% 100 MG/5 ML SYRINGE IV PUSH ONE; +LIDOCAINE/D5W 2000 MG/500 ML 500 ML IV ONE; -LISI-357 PO; -LORT10TA PO; +MAGNESIUM SULFATE 40 MEQ/10 ML VIAL IV ONE; +METO1TAB9 PO; -METO50TA PO; +METO5TAB3 PO; -POTA-243 PO; +POTA8CAP PO; -RIVA20 PO; +SACU1TAB7 PO; -UNIV15TA PO; +XARE10TA PO
[2018-01-12] MEDS ORDERED: AMIODARONE HCL 150 MG/3 ML VIAL ONE (07:35)
[2018-01-12] MEDS ORDERED: AMIODARONE INJ 150 MG in DEXTROSE 5% IN WATER 100ML INJ 100 ML IV ONE ×2 (07:36)
[2018-01-12] MEDS ORDERED: SODIUM CHLORIDE 0.9% FLUSH 10 ML FLUSH IVF PRN (07:45)
[2018-01-12] MEDS ORDERED: AMIODARONE INJ 450 MG in DEXTROSE 5% IN WATE(EXCEL) INJ 241 ML IV PRN ×2 (07:46)
[2018-01-12] MEDS ORDERED: AMIODARONE INJ 150 MG in DEXTROSE 5% IN WATER 100ML INJ 97 ML IV ONE ×2 (07:46)
--- NOTE | 2018-01-12 08:04 | RADRPT ---
EXAM DATE/TIME: 01/12/2018 07:47 [place] COMPARISON: CHEST SINGLE AP, November 19, 2017, 3:46. INDICATIONS : Syncope and abnormal heart rate. MEDICAL HISTORY : Hypertension. Chronic obstructive pulmonary disease. Myocardial infarction. Congestive heart obdulio lure. Hypercholesterolemia. Atrial fibrillation. SURGICAL HISTORY : Tonsillectomy. Nephrectomy, right. Hysterectomy. Pacemaker. ENCOUNTER: Initial ACUITY: 1 day PAIN SCORE: 0/10 LOCATION: Bilateral chest FINDINGS: The heart is mildly enlarged. Increased interstitial vascular prominence has developed throughout bot h lungs. Mild elevation left hemidiaphragm is noted. ICD device is in stable position CONCLUSION: Cardiomegaly with mild acute appearing pulmonary congestion. Servando Hernandez MD on January 12, 2018 at 8:02 Board Certified Radiologist. This report was verified electronically.
[2018-01-12] MEDS ORDERED: MAGNESIUM SULFATE 1 GM PREMIX 100 ML IV ONE (08:15)
[2018-01-12] MEDS ORDERED: LIDOCAINE/D5W 2000 MG/500 ML 500 ML IV SCH (08:19)
[2018-01-12 08:21] LABS: AUTOMATED NEUTROPHIL # 5.1 TH/MM3 (1.8-7.7); BASOPHIL # 0.1 TH/MM3 (0-0.2); BASOPHIL % 1.2 % (0.0-2.0); EOSINOPHIL # 0.5 TH/MM3 (0-0.4); EOSINOPHIL % 4.5 % (0.0-4.0); HEMATOCRIT 50.6 % (35.0-46.0); HEMOGLOBIN 17.1 GM/DL (11.6-15.3); LYMPH % 35.5 % (9.0-44.0); LYMPHOCYTE # 3.6 TH/MM3 (1.0-4.8); MEAN CELL VOLUME 89.1 FL (80.0-100.0); MEAN CORPUSCULAR HEMOGLOBIN 30.2 PG (27.0-34.0); MEAN CORPUSCULAR HGB CONC 33.8 % (32.0-36.0); MEAN PLATELET VOLUME 10.8 FL (7.0-11.0); MONO % 8.9 % (0.0-8.0); MONOCYTE # 0.9 TH/MM3 (0-0.9); NEUT % 49.9 % (16.0-70.0); PLATELET COUNT 169 TH/MM3 (150-450); RED BLOOD COUNT 5.68 MIL/MM3 (4.00-5.30); RED CELL DISTRIBUTION WIDTH 16.2 % (11.6-17.2); WHITE BLOOD COUNT 10.2 TH/MM3 (4.0-11.0)
[2018-01-12] MEDS: AMIODARONE INJ 450 MG in SODIUM CHLOR 0.9% (EXCEL) INJ 241 ML IV PRN ×2 (08:25→16:06)
[2018-01-12] MEDS ORDERED: POTASSIUM CHLORIDE 25 MEQ EFFERVESCENT TAB PO PRN (08:30)
[2018-01-12] MEDS ORDERED: MAGNESIUM HYDROXIDE SUSP 30 ML CUP PO PRN (08:30)
[2018-01-12] MEDS ORDERED: MAGNESIUM OXIDE 400 MG TAB PO PRN (08:30)
[2018-01-12] MEDS ORDERED: SODIUM CHLORIDE 0.9% FLUSH 10 ML FLUSH IV FLUSH PRN (08:30)
[2018-01-12] MEDS ORDERED: LACTULOSE SYRUP 20 GM/30 ML CUP PO PRN (08:30)
[2018-01-12] MEDS ORDERED: MISCELLANEOUS NURSING INFORMATION XX SCH (08:30)
[2018-01-12] MEDS ORDERED: GLUCAGON 1 MG/ML VIAL OTHER PRN (08:30)
[2018-01-12] MEDS ORDERED: POTASSIUM PHOSPHATE MONOBASIC 500 MG TAB PO/TUBE PRN (08:30)
[2018-01-12] MEDS ORDERED: ONDANSETRON HCL 4 MG/2 ML VIAL IV PUSH PRN (08:30)
[2018-01-12] MEDS ORDERED: DEXTROSE 50% IN WATER 50 ML VIAL(D50) IV PUSH PRN (08:30)
[2018-01-12] MEDS ORDERED: MAGNESIUM SULFATE INJ 4 GM in SODIUM CHLORIDE 0.9% INJ 92 ML IV PRN (08:30)
[2018-01-12] MEDS ORDERED: CHLORHEXIDINE GLUCONATE 2 % 1 PACK (2 CLOTHS) TOP PRN (08:30)
[2018-01-12] MEDS ORDERED: LIDOCAINE HCL 2% 100 MG/5 ML SYRINGE IV PUSH ONE ×2 (08:30→09:45)
[2018-01-12] MEDS ORDERED: SENNOSIDES 8.6 MG TAB PO PRN (08:30)
[2018-01-12] MEDS ORDERED: MAGNESIUM SULFATE INJ 2 GM in SODIUM CHLORIDE 0.9% INJ 96 ML IV PRN (08:30)
[2018-01-12] MEDS ORDERED: POTASSIUM CHLOR 20 MEQ PREMIX 100 ML IV PRN (08:30)
[2018-01-12] MEDS ORDERED: RESP: ALBUTEROL 2.5 MG/3 ML NEB (PRN) INH (08:30)
[2018-01-12] MEDS ORDERED: SODIUM PHOSPHATE INJ 30 MMOL in SODIUM CHLOR 0.9% 250 ML INJ 240 ML IV PRN (08:30)
[2018-01-12] MEDS ORDERED: POTASSIUM PHOSPHATE INJ 30 MMOL in SODIUM CHLOR 0.9% 250 ML INJ 250 ML IV PRN (08:30)
[2018-01-12] MEDS ORDERED: POTASSIUM CHLOR 40 MEQ PREMIX 100 ML IV-CENTRAL PRN ×2 (08:30)
[2018-01-12] MEDS ORDERED: POTASSIUM PHOSPHATE MONOBASIC 500 MG TAB PO PRN (08:30)
[2018-01-12] MEDS ORDERED: BISACODYL 10 MG SUPP RECTAL PRN (08:30)
--- NOTE | 2018-01-12 08:30 | PD ---
HPI Chief Complaint: Cardiac Complaint Time Seen by Provider: 07:30 Travel History International Travel<30 days: No Contact w/Intl Traveler<30days: No Traveled to known affect area: No History of Present Illness HPI 67-year-old female came to the emergency room with history of not feeling well and recurrent syncopal episode since this morning. Patient woke up not feeling well and her noticed that she had a syncopal episode. He called 911. Upon EMS arrival she had the same syncope/seizure episode 5 times and each time was witnessed to be VT. Patient was given 80 mg of lidocaine bolus by EMS which did not stop the events from recurring. Patient has an AICD and each time this happened it would fire and bring her out of the VT. In between the episodes patient is fully awake and answering questions appropriately. She denies having any chest pain. Blood pressure has been stable. Patient is maintaining her airway and oxygen saturation has been adequate upon arrival. Her installment account checker is Dr. Burnette. Patient says that she takes amiodarone at home and has not missed any doses. She denies doing any alcohol or drugs. She is talking to me patient goes into another episode of VT in front of my eyes which makes her lose consciousness and go into a mini seizure that gets aborted by a shock delivered from her AICD. After which patient comes back within 2 seconds and is talking and answering questions appropriately. [facility] Past Medical History Narrative Medical List of her past medical, surgical, social and family history is reviewed from the nursing note. Arthritis: Yes Asthma: No Atrial Fibrillation: Yes Autoimmune Disease: No Anxiety: Yes Depression: No Heart Rhythm Problems: Yes (afib) Cancer: Yes (KIDNEY) Cardiovascular Problems: Yes High Cholesterol: Yes Chemotherapy: No Chest Pain: No Congestive Heart Failure: Yes COPD: Yes Cerebrovascular Accident: No Diabetes: Yes Patient Takes Glucophage: No Diminished Hearing: No Endocrine: Yes Gastrointestinal Disorders: No GERD: No Glaucoma: No Genitourinary: Yes Hepatitis: No Hiatal Hernia: No Hypertension: Yes Immune Disorder: No Kidney Stones: No Musculoskeletal: Yes Neurologic: No Psychiatric: No Reproductive: No Respiratory: No Integumentary: No Migraines: No Pneumonia: Yes Radiation Therapy: No Renal Failure: No Seizures: No Sickle Cell Disease: No Sleep Apnea: No Thyroid Disease: No Ulcer: No Past Surgical History Abdominal Surgery: No AICD: No Arteriovenous Shunt: No Cardiac Surgery: No Ear Surgery: No Endocrine Surgery: No Eye Surgery: No Genitourinary Surgery: Yes (KIDNEY REMOVED) Gynecologic Surgery: Yes (HYSTERECTOMY) Hysterectomy: Yes Insulin Pump: No Joint Replacement: No Oral Surgery: Yes (TONSILLECTOMY) Pacemaker: Yes Thoracic Surgery: No Tonsillectomy: Yes Other Surgery: Yes Social History Alcohol Use: No Tobacco Use: No Substance Use: No Allergies-Medications (Allergen,Severity, Reaction): Coded Allergies: penicillin G (Unverified Allergy, Severe, Nausea/Vomiting, 01/12/18) Comments List of allergies reviewed from the nursing note. Reported Meds & Prescriptions Reported Meds & Active Scripts Active Cefuroxime (Cefuroxime Axetil) 500 Mg Tab 500 Mg PO BID Azithromycin 250 Mg Tab 250 Mg PO DAILY Metolazone 5 Mg Tab 5 Mg PO DIRECTED Take one tablet every 3 days. Furosemide 20 Mg Tab 20 Mg PO DAILY Reported Simvastatin 20 Mg Tab 20 Mg PO DAILY Potassium Chloride ER (Potassium Chloride) 8 Meq Cap 8 Meq PO BID Xarelto (Rivaroxaban) 10 Mg Tab 20 Mg PO DAILY Metoprolol Succinate ER 24 HR (Metoprolol Succinate) 50 Mg Tab 50 Mg PO BID Lantus Inj (Insulin Glargine) 100 Unit/Ml Inj 15 Unit SQ HS Entresto (Sacubitril-Valsartan) 49-51 Mg Tab 1 Tab PO DAILY Narrative Medication List of her home medications reviewed from the nursing note. Review of Systems Except as stated in HPI: all other systems reviewed are Neg Cardiovascular: Positive: Palpitations, Irregular Rhythm Neurologic: Positive: Syncope Physical Exam Narrative GENERAL:, Anxious, mild distress SKIN: Focused skin assessment warm/dry. HEAD: Atraumatic. Normocephalic. EYES: Pupils equal and round. No scleral icterus. No injection or drainage. ENT: No nasal bleeding or discharge. Mucous membranes pink and moist. NECK: Trachea midline. No JVD. CARDIOVASCULAR: Regular rate and rhythm. No murmur appreciated. RESPIRATORY: No accessory muscle use. Clear to auscultation. Breath sounds equal bilaterally. GASTROINTESTINAL: Abdomen soft, non-tender, nondistended. Hepatic and splenic margins not palpable. MUSCULOSKELETAL: No obvious deformities. No clubbing. No cyanosis. No edema. NEUROLOGICAL: Awake and alert. No obvious cranial nerve deficits. Motor grossly within normal limits. Normal speech. PSYCHIATRIC: Appropriate mood and affect; insight and judgment normal. Data Data Last Documented VS Vital Signs Date Time Temp Pulse Resp B/P (MAP) Pulse Ox O2 Delivery O2 Flow Rate FiO2 01/12/18 08:00 64 11 156/98 (117) 99 Partial Rebreather 01/12/18 07:42 4.00 Orders Orders Amiodarone Inj (Cordarone Inj) (01/12/18 07:35) ^ Medication Alert (01/12/18 07:36) ^ Discontinue (01/12/18 07:36) Dextrose 5% In Wate... W/Amiodarone Inj (01/12/18 07:36) Dextrose 5% In Wate... W/Amiodarone Inj (01/12/18 07:46) Vital Signs (Adult) TEDDY.Q4H (01/12/18 07:36) Electrocardiogram (01/12/18 07:36) Basic Metabolic Panel (Bmp) (01/12/18 07:36) Ckmb (Isoenzyme) Profile (01/12/18 07:36) Complete Blood Count With Diff (01/12/18 07:36) Magnesium (Mg) (01/12/18 07:36) Prothrombin Time / Inr (Pt) (01/12/18 07:36) Act Partial Throm Time (Ptt) (01/12/18 07:36) Troponin I (01/12/18 07:36) Ecg Monitoring (01/12/18 07:36) Bilateral Bp Monitoring (01/12/18 07:36) Iv Access Insert/Monitor (01/12/18 07:36) Oximetry (01/12/18 07:36) Oxygen Administration (01/12/18 07:36) Sodium Chloride 0.9% Flush (Ns Flush) (01/12/18 07:45) Dextrose 5% In Wate... W/Amiodarone Inj (01/12/18 07:46) Sodium Chlor 0.9% (... W/Amiodarone Inj (01/12/18 08:00) Chest, Single Ap (01/12/18 07:36) Magnesium Sulfate 1 Gm Premix (Magnesium (01/12/18 08:15) Admit Order (Ed Use Only) (01/12/18 08:12) Lidocaine 2% Inj (Xylocaine 2% Inj) (01/12/18 09:45) Lidocaine/D5w 2000 Mg/500 Ml (Lidocaine/ (01/12/18 10:00) Digoxin (01/12/18 08:35) Phosphorus (Po4) (01/12/18 08:35) CKMB (01/12/18 08:35) CKMB% (01/12/18 08:35) Labs Laboratory Tests Test 01/12/18 07:40 White Blood Count 10.2 TH/MM3 Red Blood Count 5.68 MIL/MM3 Hemoglobin 17.1 GM/DL Hematocrit 50.6 % Mean Corpuscular Volume 89.1 FL Mean Corpuscular Hemoglobin 30.2 PG Mean Corpuscular Hemoglobin Concent 33.8 % Red Cell Distribution Width 16.2 % Platelet Count 169 TH/MM3 Mean Platelet Volume 10.8 FL Neutrophils (%) (Auto) 49.9 % Lymphocytes (%) (Auto) 35.5 % Monocytes (%) (Auto) 8.9 % Eosinophils (%) (Auto) 4.5 % Basophils (%) (Auto) 1.2 % Neutrophils # (Auto) 5.1 TH/MM3 Lymphocytes # (Auto) 3.6 TH/MM3 Monocytes # (Auto) 0.9 TH/MM3 Eosinophils # (Auto) 0.5 TH/MM3 Basophils # (Auto) 0.1 TH/MM3 CBC Comment DIFF FINAL Differential Comment MDM Medical Decision Making Medical Screen Exam Complete: Yes Emergency Medical Condition: Yes Medical Record Reviewed: Yes Interpretation(s) Normal sinus rhythm, left axis deviation, first-degree AV block, left bundle branch block unchanged compared to 11/16/2017. Heart rate of 73 bpm. Differential Diagnosis VT storm, electrolyte abnormality, ACS Narrative Course 8:30 AM patient was given 150 mg of amiodarone bolus so upon her arrival. A drip was ordered. However patient she had 4 or 5 more episodes of VT after the bolus each of them stopped by her own AICD. Each time it would last for about 10-15 seconds. Patient was given a second bolus of 150 mg of amiodarone. Currently she is running a drip of amiodarone. I discussed the case with Dr. Burnette and he agreed with all the treatment and management plan so far indent in the emergency room. He said he will contact his partner who will see her. However after speaking with him patient went into the more episodes of VT although the last one looked very much like VF. I called Dr. Coello and discussed this with him. In my opinion patient needs ablation. He wanted the patient to be started on lidocaine bolus and drip in addition. I did inform him that patient had received 80 mg of lidocaine by EMS. He wanted the lidocaine bolus and drip in spite along with the amiodarone. As per him he will be in the hospital between 1-2 PM at which point he will be able to see the patient. I discussed with the deployment technician Dr. Saha and admitted the patient to ICU. [employer] rep was called to interrogate the device. As per him patient is having A. fib with RVR. Patient has not had anymore episodes in past 15 minutes after the lidocaine bolus. I had ordered a bolus of 120 mg. Awaiting for blood test results. Chest x-ray shows some fluid overload. Patient however is maintaining her airway. Critical Care Narrative Aggregate critical care time was 75 minutes. Time to perform other separately billable procedures was not included in the critical care time. My time did not include minutes spent treating any other patients simultaneously or on activities that did not directly contribute to the patient's treatment. The services I provided to this patient were to treat and/or prevent clinically significant deterioration that could result in: VT storm I provided critical care services requiring my management, as noted below: Chart data review, documentation time, medication orders and management, vital sign assessments/reviewing monitor data, ordering and reviewing lab tests, ordering and interpreting/reviewing x-rays and diagnostic studies, care of the patient and discussion of the patient with the admitting physicians. Procedures EKG Prior to Arrival: No Physician Communication Physician Communication Dr. Burnette, Dr. Coello, Dr. Saha Diagnosis Primary Impression: VT storm Additional Impressions: Ventricular tachycardia Ventricular fibrillation Admitting Information Admitting Physician Requests: Admit Scripts Digoxin (Digoxin) 0.125 Mg Tab 0.125 MG PO DAILY for Blood Pressure Management, #60 TAB Prov: Gabriella Driver MD 01/16/18 Amiodarone (Amiodarone) 200 Mg Tab 400 MG PO DAILY for Blood Pressure Management, #60 TAB Prov: Gabriella Driver MD 01/16/18 Hong Glass MD Jan 12, 2018 08:30
--- NOTE | 2018-01-12 08:52 | HHI.HP ---
[facility] Service Critical Care Medicine Primary Care Physician Unknown Admission Diagnosis Cardiogenic syncope VT storm Diagnosis: (1) ventricular tachycardia storm Diagnosis: Principal (2) Acute respiratory failure Diagnosis: Principal (3) Polycythemia Diagnosis: Secondary (4) Chronic systolic heart failure Diagnosis: Principal (5) Chronic anticoagulation Diagnosis: Secondary (6) Hypoxia Diagnosis: Secondary (7) Paroxysmal atrial fibrillation Diagnosis: Secondary (8) Syncope, cardiogenic Diagnosis: Principal Chief Complaint: Syncope Travel History International Travel<30 Days: No Contact w/Intl Traveler <30 Da: No Traveled to Known Affected Are: No History of Present Illness This is a 59-year-old female. Date of admission 01/12/2018. Past medical history include chronic systolic heart failure with ejection fraction less than 20% 11/30, hypertension, dyslipidemia, atrial fibrillation on chronic rivaroxaban, renal cell carcinoma status post right nephrectomy, diabetes mellitus. Patient presented to [facility] today this a.m. when she passed out at home with acute onset of syncope whose origin is likely cardiogenic. She was noted to have multiple episodes of sustained V. tach in aberrant atrial fibrillation that the defibrillator fired multiple times. This is interrogated in the ED and Dr. Burris and Dr. Coello were made aware. Patient is received 2 150 mg bolus of amiodarone is currently on a drip at 1 mg an hour per protocol. She received 120 mg of 2% lidocaine is currently on drip at 2 mg/ min. CBC is back revealing a polycythemia of 17. Remainder of laboratories are all pending at time of dictation. Chest x-ray revealed cardiomegaly with mild vascular congestion. She is currently on a nonrebreather percent satting 97%.. She is awake and lucid at the present time Review of Systems Constitutional: COMPLAINS OF: Fatigue, DENIES: Fever, Weight gain, Weight loss Endocrine: DENIES: Polydipsia, Polyuria Eyes: DENIES: Blurred vision Ears, nose, mouth, throat: DENIES: Tinnitus Respiratory: COMPLAINS OF: Shortness of breath Cardiovascular: COMPLAINS OF: Chest pain, Palpitations, Syncope, DENIES: Dyspnea on Exertion, Claudication Gastrointestinal: DENIES: Abdominal pain Musculoskeletal: DENIES: Joint pain Integumentary: DENIES: Pruritus, Rash Hematologic/lymphatic: DENIES: Bruising Immunologic/allergic: DENIES: Eczema Neurologic: DENIES: Abnormal gait, Headache Psychiatric: COMPLAINS OF: Anxiety, Depression, DENIES: Confusion Past Family Social History Allergies: Coded Allergies: penicillin G (Unverified Allergy, Severe, Nausea/Vomiting, 01/12/18) Past Medical History Chronic ischemic cardiomyopathy ejection fraction less than 20% Chronic systolic heart failure Essential hypertension Dyslipidemia Diabetes mellitus type 2 Osteoporosis Osteoarthritis Chronic anticoagulation Left bundle branch block/left anterior fascicular block History of renal cell carcinoma Past Surgical History AICD placement T&A Right nephrectomy status post renal cell carcinoma Hysterectomy Reported Medications Metolazone 5 Mg p.o. every third day Furosemide 20 Mg p.o. daily Simvastatin 20 Mg p.o. daily Potassium Chloride ER 8 mEq p.o. twice daily Rivaroxaban 20 Mg p.o. daily Metoprolol Succinate 50 mg p.o. twice daily Insulin Glargine 100 Unit/Ml 15 Unit subcu at bedtime Sacubitril-Valsartan 49-51 Mg 1 tablet p.o. daily Active Ordered Medications Reviewed in EMR Family History Positive for carotid artery disease only. Social History No tobacco, alcohol or illicit drug use. Physical Exam Vital Signs Vital Signs Date Time Temp Pulse Resp B/P (MAP) Pulse Ox O2 Delivery O2 Flow Rate FiO2 01/12/18 08:47 52 22 157/75 (102) 96 Partial Rebreather 01/12/18 08:31 58 12 178/89 (118) 97 Partial Rebreather 01/12/18 08:25 59 167/101 01/12/18 08:21 67 170/100 01/12/18 08:20 72 167/101 01/12/18 07:57 66 12 177/114 (135) 99 Non-Rebreather 167/95 (119) 01/12/18 07:46 59 167/101 01/12/18 07:42 94 Nasal Cannula 01/12/18 07:42 97 Nasal Cannula 4.00 01/12/18 07:41 65 25 169/81 (110) 99 Nasal Cannula 4.00 01/12/18 07:39 97 Nasal Cannula 4.00 01/12/18 07:28 71 24 172/106 (128) 92 Physical Exam GENERAL: 67-year-old female currently resting in bed on nonrebreather mask anxious SKIN: Warm and dry. HEAD: Atraumatic. Normocephalic. EYES: Pupils equal and round about 3 mm bilaterally and reactive. No scleral icterus. No injection or drainage. ENT: No nasal bleeding or discharge. Mucous membranes pink and moist. NECK: Trachea midline. No JVD. CARDIOVASCULAR: Bradycardic, RRR. S1, S2. No S4. Without murmurs, clicks, gallops or rubs RESPIRATORY: Few crackles appreciated in the posterior bases bilaterally. No wheezing. GASTROINTESTINAL: Abdomen soft, non-tender, nondistended. Hepatic and splenic margins not palpable. MUSCULOSKELETAL: Extremities trace bilateral lower extremity edema. No obvious deformities. NEUROLOGICAL: Awake and alert. No obvious cranial nerve deficits. Motor grossly within normal limits. Five out of 5 muscle strength in the arms and legs. Normal speech. Laboratory Laboratory Tests Test 01/12/18 07:40 White Blood Count 10.2 Red Blood Count 5.68 Hemoglobin 17.1 Hematocrit 50.6 Mean Corpuscular Volume 89.1 Mean Corpuscular Hemoglobin 30.2 Mean Corpuscular Hemoglobin Concent 33.8 Red Cell Distribution Width 16.2 Platelet Count 169 Mean Platelet Volume 10.8 Neutrophils (%) (Auto) 49.9 Lymphocytes (%) (Auto) 35.5 Monocytes (%) (Auto) 8.9 Eosinophils (%) (Auto) 4.5 Basophils (%) (Auto) 1.2 Neutrophils # (Auto) 5.1 Lymphocytes # (Auto) 3.6 Monocytes # (Auto) 0.9 Eosinophils # (Auto) 0.5 Basophils # (Auto) 0.1 CBC Comment DIFF FINAL Differential Comment Result Diagram: 01/12/1840 Imaging Last Impressions Chest X-Ray 01/12/18 0736 Signed Impressions: Service Date/Time: Friday, January 12, 2018 07:47 - CONCLUSION: Cardiomegaly with mild acute appearing pulmonary congestion. Servando Hernandez MD Septic Shock Reassessment Septic shock perfusion: reassessment completed Caprini VTE Risk Assessment Caprini VTE Risk Assessment: Mod/High Risk (score >= 2) Caprini Risk Assessment Model Point Value = 1 Point Value = 2 Point Value = 3 Point Value = 5 Age 41-60 Minor surgery BMI > 25 kg/m2 Swollen legs Varicose veins or History of unexplained or recurrent spontaneous Oral contraceptives or hormone replacement Sepsis (< 1 month) Serious lung disease, including pneumonia (< 1 month) Abnormal pulmonary function Acute myocardial infarction Congestive heart failure (< 1 month) History of inflammatory bowel disease Medical patient at bed rest Age 61-74 Arthroscopic surgery Major open surgery (> 45 min) Laparoscopic surgery (> 45 min) Malignancy Confined to bed (> 72 hours) Immobilizing plaster cast Central venous access Age >= 75 History of VTE Family history of VTE Factor V Leiden Prothrombin [id number] Lupus anticoagulant Anticardiolipin antibodies Elevated serum homocysteine Heparin-induced thrombocytopenia Other congenital or acquired thrombophilia Stroke (< 1 month) Elective arthroplasty Hip, pelvis, or leg fracture Acute spinal cord injury (< 1 month) Prophylaxis Regimen Total Risk Factor Score Risk Level Prophylaxis Regimen 0-1 Low Early ambulation 2 Moderate Order ONE of the following: *Sequential Compression Device (SCD) *Heparin 5000 units SQ BID 3-4 Higher Order ONE of the following medications: *Heparin 5000 units SQ TID *Enoxaparin/Lovenox 40 mg SQ daily (WT < 150 kg, CrCl > 30 mL/min) *Enoxaparin/Lovenox 30 mg SQ daily (WT < 150 kg, CrCl > 10-29 mL/min) *Enoxaparin/Lovenox 30 mg SQ BID (WT < 150 kg, CrCl > 30 mL/min) AND/OR *Sequential Compression Device (SCD) 5 or more Highest Order ONE of the following medications: *Heparin 5000 units SQ TID (Preferred with Epidurals) *Enoxaparin/Lovenox 40 mg SQ daily (WT < 150 kg, CrCl > 30 mL/min) *Enoxaparin/Lovenox 30 mg SQ daily (WT < 150 kg, CrCl > 10-29 mL/min) *Enoxaparin/Lovenox 30 mg SQ BID (WT < 150 kg, CrCl > 30 mL/min) AND *Sequential Compression Device (SCD) Assessment and Plan Assessment and Plan Neuro/Psych: Acetaminophen 650 mg p.o. every 6 hours as needed fever/pain 1 through 10 CV: V. tach storm Ischemic cardiac myopathy ejection fraction less than 20% Chronic systolic heart failure Essential hypertension Dyslipidemia Status post AICD placement Moderate MR Moderate pulmonary hypertension Received 300 mg amiodarone bolus and ED currently on drip at 1 mg/h per protocol Received 120 mg lidocaine push. Currently on drip at 2 mg/min. We will utilize esmolol drip if necessary if this fails to control V. tach Dr. Burnette notified in ED. Dr. Jon and Dr. Coello will see the patient today per report. Likely will need ablation Currently holding Sacubitril-Valsartan 49-51 Mg Tab daily Continue metoprolol succinate 50 mg p.o. twice daily Continue furosemide 20 mg p.o. daily Continue metolazone 5 mg p.o. every third day Echocardiogram 11/30 revealed EF less than 20%. Global LV dysfunction. Bilateral atrial enlargement. Moderate MR. PAP 40-50 mmHg Resp: Acute respiratory insufficiency secondary to pulmonary edema Patient currently on 100% nonrebreather. Titrated to maintain saturations greater than equal to 90% Incentive spirometry while awake Chest x-ray revealed mild vascular congestion bilaterally. Cardiomegaly. As needed albuterol nebs every 2 hours as needed dyspnea GI: Patient is currently n.p.o. Pantoprazole for GI prophylaxis Docusate sodium/senna 1 tablet twice daily for bowel regimen : Delgado catheter currently not indicated Endo: Diabetes mellitus type 1a Holding insulin glargine 15 units at night/home medication Sliding scale insulin with Novulin R with Accu-Cheks every 4 hours to maintain euglycemia/medium regimen Check TSH Renal: History of right nephrectomy secondary to renal cell carcinoma BMP results pending Monitor urine output Accurate I's and O Heme: Polycythemia Chronic rivaroxaban use Likely secondary to dehydration Continue rivaroxaban when clinically indicated ID: Monitor for infection FEN: Replace electrolytes as clinically indicated per ICU electrolyte protocol MSK: PT evaluate and treat Access -Utilize peripheral IV. Central and if indicated Prophylaxis -GI -pantoprazole -DVT -SCD/rivaroxaban Critical Care: The total critical care time was 35 minutes. Time to perform other separately billable procedures was not included in the critical care time. Problem Qualifiers (1) Acute respiratory failure: Qualified Codes: J96.01 - Acute respiratory failure with hypoxia Chandler Saha MD Jan 12, 2018 08:52
[2018-01-12] MEDS: SODIUM CHLORIDE 0.9% FLUSH 10 ML FLUSH IV FLUSH SCH ×2 (09:00→20:26)
[2018-01-12] MEDS ORDERED: RIVAROXABAN 20 MG TAB PO SCH (09:00)
[2018-01-12] MEDS: DOCUSATE SODIUM 50 MG/SENNA 8.6 MG TAB PO SCH ×2 (09:00→20:33)
[2018-01-12 09:10] LABS: INTERNATIONAL NORMALIZED RATIO 1.8 RATIO
[2018-01-12 09:48] LABS: BICARBONATE 22.3 MEQ/L (21.0-32.0); BLOOD UREA NITROGEN 34 MG/DL (7-18); CALCIUM 8.9 MG/DL (8.5-10.1); CHLORIDE 97 MEQ/L (98-107); CREATININE 1.84 MG/DL (0.50-1.00); DIGOXIN 1.5 NG/ML (0.8-2.0); GLOMERULAR FILTRATION RATE 27 ML/MIN (>89); GLUCOSE,RANDOM 286 MG/DL (74-106); MAGNESIUM 2.9 MG/DL (1.5-2.5); PHOSPHORUS 3.7 MG/DL (2.5-4.9); SODIUM (NA) 136 MEQ/L (136-145)
[2018-01-12 09:56] LABS: TROPONIN I 0.91 NG/ML (0.02-0.05)
[2018-01-12] MEDS ORDERED: POTASSIUM CHLORIDE 20 MEQ CONTROLLED RELEASE TAB PO ONE (10:00)
[2018-01-12] MEDS ORDERED: POTASSIUM CHLOR 20 MEQ PREMIX 100 ML IV ONE (10:00)
[2018-01-12] MEDS: METOPROLOL SUCCINATE 50 MG EXTENDED RELEASE TAB PO SCH ×2 (10:00→20:25)
--- NOTE | 2018-01-12 10:36 | RADRPT ---
EXAM DATE/TIME: 01/12/2018 10:27 [place] COMPARISON: No previous studies available for comparison. INDICATIONS : Fell and hit back of head. RADIATION DOSE: 56.35 CTDIvol (mGy) MEDICAL HISTORY : Cardiovascular disease. Congestive heart failure. Hypertension.Renal cancer SURGICAL HISTORY : Hysterectomy. Nephrectomy ENCOUNTER: Initial ACUITY: 1 day PAIN SCALE: 0/10 LOCATION: cranial TECHNIQUE: Multiple contiguous axial images were obtained of the head. Using automated exposure control and adj ustment of the mA and/or kV according to patient size, radiation dose was kept as low as reasonably a chievable to obtain optimal diagnostic quality images. DICOM format image data is available electro nically for review and comparison. FINDINGS: There is mild volume loss, left parietal scalp soft tissue swelling, and patchy hypodensity in the bi lateral centrum semiovale and periventricular white matter characteristic of mild chronic microvascul ar ischemic disease. There is opacification of the right frontal sinus and ethmoid air cells with per iosteal thickening noted. No fractures are seen. CONCLUSION: Mild atrophy and white matter disease. Left parietal scalp soft tissue swelling. Paranasal sinus opac ification. Gato Garcia MD on January 12, 2018 at 10:34 Board Certified Radiologist. This report was verified electronically.
[2018-01-12] MEDS: SODIUM CHLOR 0.9% 1000 ML INJ 1,000 ML IV SCH ×2 (11:22→20:25)
[2018-01-12] MEDS: PANTOPRAZOLE SODIUM 40 MG VIAL IV PUSH SCH (11:24)
[2018-01-12] MEDS: LIDOCAINE/D5W 2000 MG/500 ML 500 ML IV SCH (11:26)
[2018-01-12] MEDS: POTASSIUM CHLORIDE 8 MEQ CAP PO SCH ×2 (12:56→20:33)
[2018-01-12] MEDS: FUROSEMIDE 20 MG TAB PO SCH (12:56)
[2018-01-12] MEDS: METOLAZONE 5 MG TAB PO SCH (12:56)
[2018-01-12] MEDS: INSULIN NovoLIN REGULAR SUPPLEMENTAL SCALE SQ SCH ×3 (12:57→20:33)
--- NOTE | 2018-01-12 17:54 | EKG ---
Date Performed: 01/12/2018 Time Performed: 07:39:33 PTAGE: 67 years EKG: Sinus rhythm WITH FIRST DEGREE AV BLOCK POSSIBLE LEFT ATRIAL ENLARGEMENT MARKED LEFT AXIS DEVIATION LEFT BUNDLE B RANCH BLOCK ABNORMAL ECG Compared to PREVIOUS TRACING , the patient is back in sinus rhythm. PREVIOUS TRACIN11/16/2017 20.22 .54 DOCTOR: Bre Robin Interpretating Date/Time 01/12/2018 17:54:38
[2018-01-12 19:13] LABS: PHOSPHORUS 3.6 MG/DL (2.5-4.9)
[2018-01-12 19:35] LABS: CHOLESTEROL/ HDL RATIO 1.72 RATIO; HDL CHOLESTEROL 62.2 MG/DL (40.0-60.0)
[2018-01-12 19:38] LABS: TROPONIN I 1.04 NG/ML (0.02-0.05)
[2018-01-13] VITALS (13 sets, daily range): BP systolic 140–158; BP diastolic 73–76; PULSE 49–60; RESP 20–27; TEMP 97.8–98.1; O2SAT 94–99
[2018-01-13] MEDS: LIDOCAINE/D5W 2000 MG/500 ML 500 ML IV SCH ×3 (00:08→20:09)
[2018-01-13] MEDS: CHLORHEXIDINE GLUCONATE 2 % 1 PACK (2 CLOTHS) TOP SCH (04:00)
[2018-01-13 05:44] LABS: AUTOMATED NEUTROPHIL # 10.1 TH/MM3 (1.8-7.7); BASOPHIL # 0.1 TH/MM3 (0-0.2); BASOPHIL % 0.6 % (0.0-2.0); EOSINOPHIL # 0.1 TH/MM3 (0-0.4); EOSINOPHIL % 0.5 % (0.0-4.0); HEMATOCRIT 49.1 % (35.0-46.0); HEMOGLOBIN 16.4 GM/DL (11.6-15.3); LYMPH % 14.9 % (9.0-44.0); MEAN CELL VOLUME 90.2 FL (80.0-100.0); MEAN CORPUSCULAR HEMOGLOBIN 30.2 PG (27.0-34.0); MEAN CORPUSCULAR HGB CONC 33.4 % (32.0-36.0); MEAN PLATELET VOLUME 9.9 FL (7.0-11.0); MONO % 7.4 % (0.0-8.0); NEUT % 76.6 % (16.0-70.0); PLATELET COUNT 121 TH/MM3 (150-450); RED BLOOD COUNT 5.45 MIL/MM3 (4.00-5.30); RED CELL DISTRIBUTION WIDTH 15.7 % (11.6-17.2); WHITE BLOOD COUNT 13.3 TH/MM3 (4.0-11.0)
[2018-01-13 05:54] LABS: INTERNATIONAL NORMALIZED RATIO 1.4 RATIO; PROTHROMBIN TIME - PATIENT 13.7 SEC (9.8-11.6)
[2018-01-13 06:09] LABS: ALBUMIN 2.7 GM/DL (3.4-5.0); AST (GOT) 30 U/L (15-37); BICARBONATE 25.2 MEQ/L (21.0-32.0); BLOOD UREA NITROGEN 41 MG/DL (7-18); CALCIUM 8.2 MG/DL (8.5-10.1); CHLORIDE 104 MEQ/L (98-107); CREATININE 1.79 MG/DL (0.50-1.00); GLOMERULAR FILTRATION RATE 28 ML/MIN (>89); GLUCOSE,RANDOM 125 MG/DL (74-106); SODIUM (NA) 140 MEQ/L (136-145)
[2018-01-13 06:24] LABS: ALKALINE PHOSPHATASE 95 U/L (45-117); ALT (GPT) 21 U/L (10-53); DIGOXIN 2.1 NG/ML (0.8-2.0); PHOSPHORUS 3.7 MG/DL (2.5-4.9); TOTAL BILIRUBIN ADULT 1.6 MG/DL (0.2-1.0); TOTAL PROTEIN 6.2 GM/DL (6.4-8.2)
[2018-01-13] MEDS: SODIUM CHLOR 0.9% 1000 ML INJ 1,000 ML IV SCH ×2 (07:23→19:01)
[2018-01-13] MEDS: AMIODARONE INJ 450 MG in SODIUM CHLOR 0.9% (EXCEL) INJ 241 ML IV PRN ×2 (07:24→20:05)
[2018-01-13] MEDS: INSULIN NovoLIN REGULAR SUPPLEMENTAL SCALE SQ SCH ×4 (08:00→20:04)
[2018-01-13] MEDS: METOLAZONE 5 MG TAB PO SCH (08:53)
[2018-01-13] MEDS: POTASSIUM CHLORIDE 8 MEQ CAP PO SCH ×2 (08:53→20:03)
[2018-01-13] MEDS: SODIUM CHLORIDE 0.9% FLUSH 10 ML FLUSH IV FLUSH SCH ×2 (08:53→20:03)
[2018-01-13] MEDS: FUROSEMIDE 20 MG TAB PO SCH (08:54)
[2018-01-13] MEDS: METOPROLOL SUCCINATE 50 MG EXTENDED RELEASE TAB PO SCH ×3 (08:54→20:15)
[2018-01-13] MEDS: DOCUSATE SODIUM 50 MG/SENNA 8.6 MG TAB PO SCH ×2 (08:54→20:03)
[2018-01-13] MEDS: PANTOPRAZOLE SODIUM 40 MG VIAL IV PUSH SCH (08:55)
[2018-01-13] MEDS ORDERED: DIGOXIN 0.125 MG TAB PO SCH (09:00)
[2018-01-13] MEDS: POTASSIUM CHLOR 20 MEQ PREMIX 100 ML IV PRN ×2 (09:30→11:40)
--- NOTE | 2018-01-13 12:24 | ECHRPT ---
Indication: a fib/flutter CONCLUSIONS Normal left ventricular size. The left ventricular systolic function is severely reduced with an estimated ejection fraction less than 20%. Global hypokinesis The left atrial size is vuaw-sd-khdrsqbnof dilated. Mild mitral valve regurgitation. No aortic valve stenosis. No aortic valve regurgitation. There is mild tricuspid valve regurgitation. The estimated pulmonary arterial pressure is 66 mmHg. BP: / HR: Rhythm: MEASUREMENTS (Male / Female) Normal Values Technical Quality:Good 2D ECHO LV Diastolic Diameter PLAX 4.4 cm 4.2 - 5.9 / 3.9 - 5.3 cm LV Systolic Diameter PLAX 4.1 cm IVS Diastolic Thickness 1.7 cm 0.6 - 1.0 / 0.6 - 0.9 cm LVPW Diastolic Thickness 1.3 cm 0.6 - 1.0 / 0.6 - 0.9 cm LV Relative Wall Thickness 0.7 RV Internal Dim ED PLAX 3.4 cm M-MODE Aortic Root Diameter MM 2.6 cm LA Systolic Diameter MM 5.1 cm LA Ao Ratio MM 2.0 AV Cusp Separation MM 1.8 cm DOPPLER Mitral E Point Velocity 80.5 cm/s Mitral A Point Velocity 34.1 cm/s Mitral E to A Ratio 2.4 LV E' Lateral Velocity 3.4 cm/s Mitral E to LV E' Lateral Ratio 23.6 LV E' Septal Velocity 3.6 cm/s Mitral E to LV E' Septal Ratio 22.3 TR Peak Velocity 374.0 cm/s TR Peak Gradient 56.0 mmHg Right Atrial Pressure 10.0 mmHg Pulmonary Artery Systolic Pressu 66.0 mmHg Right Ventricular Systolic Press 66.0 mmHg FINDINGS LEFT VENTRICLE Normal left ventricular size. The left ventricular systolic function is severely reduced with an estimated ejection fraction less than 20%. RIGHT VENTRICLE Normal right ventricular size and systolic function. LEFT ATRIUM The left atrial size is rkyf-ly-yqpsgnipxe dilated. RIGHT ATRIUM The right atrial size is normal. ATRIAL SEPTUM Normal atrial septal thickness without atrial level shunting by limited color doppler interrogation. AORTA The aortic root and proximal ascending aorta are normal in size on limited imaging. MITRAL VALVE Mild thickening of the mitral valve leaflets. Mild mitral valve regurgitation. AORTIC VALVE Trileaflet aortic valve. No aortic valve stenosis. No aortic valve regurgitation. TRICUSPID VALVE Structurally normal tricuspid valve. There is mild tricuspid valve regurgitation. The estimated pulmonary arterial pressure is 66 mmHg. PULMONARY VALVE No pulmonary valve regurgitation or stenosis. VESSELS The inferior vena cava is normal in size. PERICARDIUM No pericardial effusion. Bre Robin MD, FACC (Electronically Signed) Final Date:13 January 2018 12:23
[2018-01-13] MEDS: MAGNESIUM SULFATE 1 GM PREMIX 100 ML IV SCH ×2 (15:56→17:08)
[2018-01-13] MEDS ORDERED: POTASSIUM CHLORIDE 10 MEQ CONTROLLED RELEASE TAB PO ONE (16:00)
--- NOTE | 2018-01-13 19:02 | MB ---
cc: Bre Robin MD DATE OF CONSULT: 01/13/2018 REASON FOR CONSULTATION: Ventricular tachycardia. HISTORY OF PRESENT ILLNESS: Ms. Andersen is a 67-year-old patient of my partner, Dr. Burris. She does have a history of an ischemic cardiomyopathy with an EF of less than 20%. She is status post ICD. The patient reports that she had been in [place] for several days and then when she returned to [place], she did need to take her p.r.n. Metolazone and has had several doses. She subsequently had multiple shocks and presented to the emergency room. She is currently feeling better. PAST MEDICAL HISTORY: Significant for hypertension, hyperlipidemia, diabetes, osteoporosis, left bundle branch block, atrial fibrillation. REVIEW OF SYSTEMS: Except as mentioned in the HPI, all 12 systems are negative. ALLERGIES: TO PENICILLIN. OUTPATIENT MEDICATIONS: Include Metolazone 5 mg, Lasix 20 mg a day, simvastatin 20 mg a day, potassium 8 meq b.i.d., rivaroxaban 20 mg a day, metoprolol 50 mg b.i.d., and insulin and Entresto 49/51. FAMILY HISTORY: Positive for CAD. SOCIAL HISTORY: The patient is and does not smoke. PHYSICAL EXAMINATION: VITAL SIGNS: Temperature 97.9, heart rate 60, respiratory rate 24, blood pressure 142/75. GENERAL: She is a well appearing female who is in no apparent distress. NECK: Free from JVD. LUNGS: Do have a few crackles in the bases. ABDOMEN: Soft. EXTREMITIES: Free from edema. LABORATORY VALUES: Reveal an initial potassium of 2.6, creatinine of 1.84. Her troponin I was 0.91 and went up to 1.04. Her creatinine today is 1.79 and potassium is 3.3 DEVICE INTERROGATION: Does show episodes of ventricular tachycardia. The complete interrogation is not available. IMPRESSION: Ventricular tachycardia -- the patient had multiple episodes of ventricular tachycardia She is currently on both lidocaine and amiodarone and has not had any further episodes. I suspect that there is a very good chance this was secondary to her potassium of 2.6. Thus, I am going to try and wean her off of the lidocaine. Obviously, if she has refractory VT we will up the lidocaine and consider VT ablation. Otherwise we will continue to wean the IV antiarrhythmics and likely get an EP consult to evaluate for EPS/ VT ablation. Hypokalemia- 2.6; per the ICU team Cardiomyopathy with EF 20%- continue BB and entresto CKD- MD ELIZABETH Robertson/TANGELA , 05:38 PM , 07:00 PM NORBERTO
--- NOTE | 2018-01-13 20:41 | HHI.CCPN ---
Subjective Remarks/Hospital Course This is a 67-year-old female. Date of admission 01/12/2018. Past medical history include chronic systolic heart failure with ejection fraction less than 20% 11/30, hypertension, dyslipidemia, atrial fibrillation on chronic rivaroxaban, renal cell carcinoma status post right nephrectomy, diabetes mellitus. Patient presented to [facility] today this a.m. when she passed out at home with acute onset of syncope whose origin is likely cardiogenic. She was noted to have multiple episodes of sustained V. tach in aberrant atrial fibrillation that the defibrillator fired multiple times. This is interrogated in the ED and Dr. Burris and Dr. Coello were made aware. Patient is received 2 150 mg bolus of amiodarone is currently on a drip at 1 mg an hour per protocol. She received 120 mg of 2% lidocaine is currently on drip at 2 mg/ min. CBC is back revealing a polycythemia of 17. Remainder of laboratories are all pending at time of dictation. Chest x-ray revealed cardiomegaly with mild vascular congestion. She is currently on a nonrebreather percent satting 97%.. She is awake and lucid at the present time Subjective 01/13: Currently resting in bed in no acute distress. No further episodes of defibrillation. Currently decreasing lidocaine drip to 1 mg/min per cardiology' s recommendations. Progressively replacing electrolytes including potassium. Objective Vital Signs Date Time Temp Pulse Resp B/P (MAP) Pulse Ox O2 Delivery O2 Flow Rate FiO2 01/13/18 20:09 59 158/76 01/13/18 16:00 97.9 24 96 01/13/18 09:46 Nasal Cannula 2.00 01/12/18 09:40 100 Intake and Output 01/13/18 01/13/18 01/14/18 08:00 16:00 00:00 Intake Total 1476 ml 200 ml 700 ml Output Total 300 ml 150 ml Balance 1176 ml 200 ml 550 ml Result Diagram: 01/13/18 0521 01/13/18 0521 Imaging Last Impressions Chest X-Ray 01/12/18 0736 Signed Impressions: Service Date/Time: Friday, January 12, 2018 07:47 - CONCLUSION: Cardiomegaly with mild acute appearing pulmonary congestion. Servando Hernandez MD Head CT 01/12/18 0000 Signed Impressions: Service Date/Time: Friday, January 12, 2018 10:27 - CONCLUSION: Mild atrophy and white matter disease. Left parietal scalp soft tissue swelling. Paranasal sinus opacification. Gato Garcia MD Objective Remarks GENERAL: 67-year-old female currently resting in bed on nasal cannula in no acute distress SKIN: Warm and dry. HEAD: Atraumatic. Normocephalic. EYES: Pupils equal and round about 3 mm bilaterally and reactive. No scleral icterus. No injection or drainage. ENT: No nasal bleeding or discharge. Mucous membranes pink and moist. NECK: Trachea midline. No JVD. CARDIOVASCULAR: Bradycardic,RR. S1, S2. No S4. Without murmurs, clicks, gallops or rubs RESPIRATORY: Few crackles appreciated in the posterior bases bilaterally. No wheezing. GASTROINTESTINAL: Abdomen soft, non-tender, nondistended. Hepatic and splenic margins not palpable. MUSCULOSKELETAL: Extremities trace bilateral lower extremity edema. No obvious deformities. NEUROLOGICAL: Awake and alert. No obvious cranial nerve deficits. Motor grossly within normal limits. Five out of 5 muscle strength in the arms and legs. Normal speech. Urinary Catheter: No Assessment to: Continue Vascular Central Line Catheter: No Assessment to: Continue A/P Assessment and Plan Neuro/Psych: Acetaminophen 650 mg p.o. every 6 hours as needed fever/pain 1 through 10 CV: V. tach storm Ischemic cardiac myopathy ejection fraction less than 20% Chronic systolic heart failure Essential hypertension Dyslipidemia Status post AICD placement Moderate MR Moderate pulmonary hypertension Received 300 mg amiodarone bolus and ED currently on drip at 0.5 mg/min per protocol Received 120 mg lidocaine push. Currently on drip at 1 mg/min. We will utilize esmolol drip if necessary if this fails to control V. tach Dr. Burnette notified in ED. Dr. Robin examined today 01/13. Thought most likely secondary to hypokalemia. Dr. Coello will see the patient per report from ED physician. Likely will need ablation scheduled January 29 as outpatient Currently holding Sacubitril-Valsartan 49-51 Mg Tab daily Continue metoprolol succinate 50 mg p.o. twice daily Continue furosemide 20 mg p.o. daily Currently holding metolazone 5 mg p.o. every third day Holding digoxin. She takes unknown dosage at home. Was 1.5 admission. 2.1 today. Echocardiogram 11/30 revealed EF less than 20%. Global LV dysfunction. Bilateral atrial enlargement. Moderate MR. PAP 40-50 mmHg Echocardiogram revealed normal left ventricular size. The left ventricular systolic function is severely reduced with an estimated ejection fraction less than 20%. Global hypokinesis The left atrial size is mil to moderately dilated. Mild mitral valve regurgitation. No aortic valve stenosis. No aortic valve regurgitation. There is mild tricuspid valve regurgitation. The estimated pulmonary arterial pressure is 66 mmHg. Resp: Acute respiratory insufficiency secondary to pulmonary edema Currently on nasal cannula Titrated to maintain saturations greater than equal to 90% Incentive spirometry while awake Chest x-ray revealed mild vascular congestion bilaterally. Cardiomegaly. As needed albuterol nebs every 2 hours as needed dyspnea GI: Patient is currently n.p.o. except for medications Pantoprazole for GI prophylaxis Docusate sodium/senna 1 tablet twice daily for bowel regimen : Delgado catheter currently not indicated Endo: Diabetes mellitus type 1a Holding insulin glargine 15 units at night/home medication Sliding scale insulin with Novulin R with Accu-Cheks every 4 hours to maintain euglycemia/medium regimen Check TSH Renal: History of right nephrectomy secondary to renal cell carcinoma Creatinine currently 1.8. BMP results pending Monitor urine output Accurate I's and O Heme: Polycythemia Chronic rivaroxaban use Likely secondary to dehydration Continue rivaroxaban when clinically indicated currently 50 mg daily ID: Monitor for infection FEN: Hypokalemia Replace electrolytes as clinically indicated per ICU electrolyte protocol MSK: PT evaluate and treat Access -Utilize peripheral IV. Central line if indicated Prophylaxis -GI -pantoprazole -DVT -SCD/rivaroxaban Level 3 follow-up Chandler Saha MD Jan 13, 2018 20:41
[2018-01-13] MEDS ORDERED: POTASSIUM CHLORIDE 20 MEQ CONTROLLED RELEASE TAB PO ONE (20:45)
[2018-01-14] VITALS (20 sets, daily range): BP systolic 138–165; BP diastolic 65–79; PULSE 52–67; RESP 14–31; TEMP 97.8–98.6; O2SAT 87–99
[2018-01-14] MEDS: CHLORHEXIDINE GLUCONATE 2 % 1 PACK (2 CLOTHS) TOP SCH ×2 (02:51→21:06)
--- NOTE | 2018-01-14 05:51 | RADRPT ---
EXAM DATE/TIME: 01/14/2018 03:28 [place] COMPARISON: CHEST SINGLE AP, January 12, 2018, 7:47. INDICATIONS : Shortness of breath, possible pulmonary disease. MEDICAL HISTORY : Hypertension. Chronic obstructive pulmonary disease. Myocardial infarction. CHF A-Fib Hypercholes terolemia SURGICAL HISTORY : Tonsillectomy. Nephrectomy, right. Hysterectomy. Pacemaker ENCOUNTER: Subsequent ACUITY: 2 days PAIN SCORE: 0/10 LOCATION: Bilateral chest FINDINGS: Patchy infiltrates in the left mid and lower lung with partial consolidation, more prominent than on prior examination. Ill-defined hazy opacity in the central right lower lung with possible herniation of the right hemidiaphragm. Heart is stable in size and configuration. Pacer lead unchanged. CONCLUSION: Increasing parenchymal infiltrates in the left lower lung. Chato Rodríguez MD on January 14, 2018 at 5:49 Board Certified Radiologist. This report was verified electronically.
[2018-01-14] MEDS: SODIUM CHLOR 0.9% 1000 ML INJ 1,000 ML IV SCH ×2 (06:56→21:05)
[2018-01-14] MEDS: INSULIN NovoLIN REGULAR SUPPLEMENTAL SCALE SQ SCH ×4 (08:00→21:05)
[2018-01-14] MEDS: SODIUM CHLORIDE 0.9% FLUSH 10 ML FLUSH IV FLUSH SCH ×2 (09:00→21:05)
[2018-01-14] MEDS: POTASSIUM CHLORIDE 8 MEQ CAP PO SCH ×2 (09:36→21:05)
[2018-01-14] MEDS: METOPROLOL SUCCINATE 50 MG EXTENDED RELEASE TAB PO SCH ×2 (09:37→21:05)
[2018-01-14] MEDS: RIVAROXABAN 20 MG TAB PO SCH (09:37)
[2018-01-14] MEDS: FUROSEMIDE 20 MG TAB PO SCH (09:37)
[2018-01-14] MEDS: PANTOPRAZOLE SODIUM 40 MG VIAL IV PUSH SCH (09:37)
[2018-01-14] MEDS: DOCUSATE SODIUM 50 MG/SENNA 8.6 MG TAB PO SCH ×2 (09:37→21:05)
--- NOTE | 2018-01-14 10:36 | PD.CARD.PN ---
Subjective Subjective Remarks PT without complaints overnight Objective Medications Current Medications Medications (Trade) Dose Ordered Sig/Baldomero Route Start Time Stop Time Status Last Admin Amiodarone HCl 450 mg/Sodium Chloride 250 ml @ 33.33 mls/ hr [id number] PRN IV 01/12/18 08:00 01/13/18 20:05 Sodium Chloride 1,000 ml @ 84 mls/hr [id number] IV 01/12/18 10:00 01/14/18 06:56 (NS Flush) 2 ml UNSCH PRN IV FLUSH 01/12/18 08:30 (NS Flush) 2 ml BID IV FLUSH 01/12/18 09:00 01/14/18 09:00 (Protonix Inj) 40 mg DAILY IV PUSH 01/12/18 10:00 01/14/18 09:37 (Zofran Inj) 4 mg Q6H PRN IV PUSH 01/12/18 08:30 01/12/18 11:05 (Albuterol Neb) 2.5 mg Q2HR NEB PRN INH 01/12/18 08:30 Miscellaneous Information 1 Q361D XX 01/12/18 08:30 (Chlorhexidine 2% Cloth) 3 pack Taper DAILY@04 TOP 01/13/18 04:00 01/09/19 03:59 01/14/18 02:51 (Chlorhexidine 2% Cloth) 3 pack UNSCH PRN TOP 01/12/18 08:30 (Jacinta-Colace) 1 tab BID PO 01/12/18 09:00 01/14/18 09:37 (Milk Of Magnesia Liq) 30 ml Q12H PRN PO 01/12/18 08:30 (Senokot) 17.2 mg Q12H PRN PO 01/12/18 08:30 (Dulcolax Supp) 10 mg DAILY PRN RECTAL 01/12/18 08:30 (Lactulose Liq) 30 ml DAILY PRN PO 01/12/18 08:30 (Lasix) 20 mg DAILY PO 01/12/18 10:00 01/14/18 09:37 (Zaroxolyn) 5 mg DAILY PO 01/12/18 10:00 Future Hold 01/13/18 08:53 (Toprol Xl) 50 mg BID PO 01/12/18 10:00 01/14/18 09:37 (KCl) 8 meq BID PO 01/12/18 10:15 01/14/18 09:36 Potassium Chloride 100 ml @ 50 mls/hr Q2H PRN IV-CENTRAL 01/12/18 08:30 Potassium Chloride 100 ml @ 50 mls/hr Q2H PRN IV 01/12/18 08:30 (K-Lyte Cl Eff) 50 meq UNSCH PRN PO 01/12/18 08:30 Potassium Chloride 100 ml @ 25 mls/hr UNSCH PRN IV-CENTRAL 01/12/18 08:30 Potassium Chloride 100 ml @ 50 mls/hr Q2H PRN IV 01/12/18 08:30 01/13/18 09:30 Magnesium Sulfate 4 gm/Sodium Chloride 100 ml @ 50 mls/hr UNSCH PRN IV 01/12/18 08:30 (Mag-Ox) 800 mg UNSCH PRN PO 01/12/18 08:30 Magnesium Sulfate 2 gm/Sodium Chloride 100 ml @ 50 mls/hr UNSCH PRN IV 01/12/18 08:30 (K-Phos) 2,000 mg Q4H PRN PO 01/12/18 08:30 Sodium Phosphate 30 mmol/Sodium Chloride 250 ml @ 42 mls/hr UNSCH PRN IV 01/12/18 08:30 (K-Phos) 2,000 mg UNSCH PRN PO/TUBE 01/12/18 08:30 Potassium Phosphate 30 mmol/ Sodium Chloride 260 ml @ 42 mls/hr UNSCH PRN IV 01/12/18 08:30 (D50w (Vial) Inj) 50 ml UNSCH PRN IV PUSH 01/12/18 08:30 (Glucagon Inj) 1 mg UNSCH PRN OTHER 01/12/18 08:30 (NovoLIN R SUPPLEMENTAL SCALE) 1 ACHS SLIDING SCALE SQ 01/12/18 12:00 01/13/18 20:04 (Lanoxin) 0.125 mg DAILY PO 01/13/18 09:00 Future Hold 01/13/18 08:53 (Xarelto) 15 mg DAILY PO 01/14/18 09:00 01/14/18 09:37 Lidocaine HCl/ Dextrose 500 ml @ 15 mls/hr Q24H IV 01/13/18 18:45 01/13/18 20:09 Vital Signs / I&O Vital Signs Date Time Temp Pulse Resp B/P (MAP) Pulse Ox O2 Delivery O2 Flow Rate FiO2 01/14/18 10:01 65 01/14/18 10:01 65 31 158/74 (102) 96 01/14/18 10:00 65 01/14/18 10:00 65 25 96 01/14/18 09:50 87 Nasal Cannula 2.00 01/14/18 09:00 58 17 164/79 (107) 94 01/14/18 09:00 58 01/14/18 08:01 55 18 140/68 (92) 96 01/14/18 08:01 55 01/14/18 08:00 98.4 54 20 158/74 (102) 95 01/14/18 08:00 54 01/14/18 06:00 52 137/65 01/14/18 06:00 52 137/65 01/14/18 06:00 52 01/14/18 04:00 52 01/14/18 04:00 97.8 52 19 138/65 (89) 99 01/14/18 04:00 52 138/65 01/14/18 04:00 52 138/65 01/14/18 02:00 60 151/74 01/14/18 02:00 60 151/74 01/14/18 02:00 60 01/14/18 00:00 56 01/14/18 00:00 98.1 56 20 150/74 (99) 95 01/14/18 00:00 56 150/74 01/14/18 00:00 56 150/74 01/13/18 22:00 57 151/74 01/13/18 22:00 57 151/74 01/13/18 22:00 57 01/13/18 20:09 59 158/76 01/13/18 20:05 60 158/76 01/13/18 20:00 97.8 57 27 158/76 (103) 99 01/13/18 20:00 57 01/13/18 20:00 57 158/76 01/13/18 20:00 57 158/76 01/13/18 19:00 56 150/69 01/13/18 18:00 58 01/13/18 16:00 60 01/13/18 16:00 97.9 60 24 142/75 (97) 96 01/13/18 14:00 56 01/13/18 12:00 57 01/13/18 12:00 98.1 57 20 151/73 (99) 94 I/O 01/13/18 01/13/18 01/13/18 01/14/18 01/14/18 01/14/18 07:00 15:00 23:00 07:00 15:00 23:00 Intake Total 1356 ml 320 ml 1450 ml 1900 ml Output Total 300 ml 150 ml 400 ml Balance 1056 ml 320 ml 1300 ml 1500 ml Intake Oral 0 ml IV Total 1356 ml 320 ml 1450 ml 1900 ml Output Urine Total 300 ml 150 ml 400 ml # Voids 6 # Bowel Movements 0 Physical Exam GENERAL: Well developed, well nourished. No acute distress. HEENT: Jugular venous pressure is normal. CHEST: Lungs clear to auscultation bilaterally. Unlabored respiratory effort. CARDIAC: Regular rate and rhythm without S3, S4, or murmur. ABDOMEN: Soft, nontender, no hepatosplenomegaly. Bowel sounds present. EXTREMITIES: No clubbing, cyanosis, or edema. Laboratory Laboratory Tests Test 01/13/18 19:35 Potassium Level 3.6 MEQ/L Imaging Last 24 hours Impressions Chest X-Ray 01/14/18 0600 Signed Impressions: Service Date/Time: Sunday, January 14, 2018 03:28 - CONCLUSION: Increasing parenchymal infiltrates in the left lower lung. Chato Rodríguez MD Assessment and Plan Problem List: (1) ventricular tachycardia storm Plan: no further episodes since yesterday with lower lido and amio =>likely related to potassium of 2.6 =>d/c amio and lido today, add PO amio => consult Dr Coello to evaluate for EPS VT ablation as requested by family/ (2) NSTEMI (non-ST elevated myocardial infarction) ICD Codes: I21.4 - Non-ST elevation (NSTEMI) myocardial infarction Plan: secondary elevation after multiple defib shocks and CKD (3) Paroxysmal atrial fibrillation ICD Codes: I48.0 - Paroxysmal atrial fibrillation Status: Chronic (4) Ventricular tachycardia ICD Codes: I47.2 - Ventricular tachycardia Status: Acute (5) Cardiomyopathy ICD Codes: I42.9 - Cardiomyopathy Status: Chronic (6) Chronic systolic heart failure ICD Codes: I50.22 - Chronic systolic (congestive) heart failure Status: Acute Plan: EF 20% - continue present meds (7) Hypokalemia ICD Codes: E87.6 - Hypokalemia Plan: labs pending, per primary team Bre Robin MD Jan 14, 2018 10:36
[2018-01-14 10:43] LABS: AUTOMATED NEUTROPHIL # 9.1 TH/MM3 (1.8-7.7); BASOPHIL # 0.1 TH/MM3 (0-0.2); BASOPHIL % 1.1 % (0.0-2.0); EOSINOPHIL # 0.1 TH/MM3 (0-0.4); EOSINOPHIL % 0.5 % (0.0-4.0); HEMATOCRIT 51.3 % (35.0-46.0); HEMOGLOBIN 16.8 GM/DL (11.6-15.3); LYMPH % 12.5 % (9.0-44.0); LYMPHOCYTE # 1.5 TH/MM3 (1.0-4.8); MEAN CELL VOLUME 90.8 FL (80.0-100.0); MEAN CORPUSCULAR HEMOGLOBIN 29.7 PG (27.0-34.0); MEAN CORPUSCULAR HGB CONC 32.7 % (32.0-36.0); MEAN PLATELET VOLUME 10.2 FL (7.0-11.0); MONOCYTE # 0.9 TH/MM3 (0-0.9); NEUT % 77.9 % (16.0-70.0); PLATELET COUNT 137 TH/MM3 (150-450); RED BLOOD COUNT 5.65 MIL/MM3 (4.00-5.30); WHITE BLOOD COUNT 11.7 TH/MM3 (4.0-11.0)
[2018-01-14 11:03] LABS: AST (GOT) 31 U/L (15-37); BICARBONATE 21.3 MEQ/L (21.0-32.0); BLOOD UREA NITROGEN 31 MG/DL (7-18); CALCIUM 8.6 MG/DL (8.5-10.1); CHLORIDE 105 MEQ/L (98-107); CREATININE 1.48 MG/DL (0.50-1.00); GLOMERULAR FILTRATION RATE 35 ML/MIN (>89); GLUCOSE,RANDOM 119 MG/DL (74-106); MAGNESIUM 2.4 MG/DL (1.5-2.5); SODIUM (NA) 138 MEQ/L (136-145)
[2018-01-14 11:18] LABS: ALKALINE PHOSPHATASE 107 U/L (45-117); ALT (GPT) 21 U/L (10-53); DIGOXIN 2.2 NG/ML (0.8-2.0); PHOSPHORUS 2.7 MG/DL (2.5-4.9); TOTAL BILIRUBIN ADULT 2.1 MG/DL (0.2-1.0); TOTAL PROTEIN 6.8 GM/DL (6.4-8.2); TROPONIN I 0.28 NG/ML (0.02-0.05)
[2018-01-14] MEDS: AMIODARONE 200 MG TAB PO SCH (12:46)
[2018-01-14] MEDS ORDERED: SENNOSIDES 8.6 MG TAB PO PRN (15:15)
--- NOTE | 2018-01-14 18:02 | HHI.CCPN ---
Subjective Remarks/Hospital Course This is a 67-year-old female. Date of admission 01/12/2018. Past medical history include chronic systolic heart failure with ejection fraction less than 20% 11/30, hypertension, dyslipidemia, atrial fibrillation on chronic rivaroxaban, renal cell carcinoma status post right nephrectomy, diabetes mellitus. Patient presented to [facility] today this a.m. when she passed out at home with acute onset of syncope whose origin is likely cardiogenic. She was noted to have multiple episodes of sustained V. tach in aberrant atrial fibrillation that the defibrillator fired multiple times. This is interrogated in the ED and Dr. Burris and Dr. Coello were made aware. Patient is received 2 150 mg bolus of amiodarone is currently on a drip at 1 mg an hour per protocol. She received 120 mg of 2% lidocaine is currently on drip at 2 mg/ min. CBC is back revealing a polycythemia of 17. Remainder of laboratories are all pending at time of dictation. Chest x-ray revealed cardiomegaly with mild vascular congestion. She is currently on a nonrebreather percent satting 97%.. She is awake and lucid at the present time Subjective 01/13: Currently resting in bed in no acute distress. No further episodes of defibrillation. Currently decreasing lidocaine drip to 1 mg/min per cardiology' s recommendations. Progressively replacing electrolytes including potassium. 01/14: Hemodynamically stable. No dysrhythmias, no angina patient's diet advanced from cardiology patient out of bed to chair with assistance of PT. Objective Vital Signs Date Time Temp Pulse Resp B/P (MAP) Pulse Ox O2 Delivery O2 Flow Rate FiO2 01/14/18 14:00 67 01/14/18 14:00 22 156/74 (101) 98 01/14/18 12:00 98.5 01/14/18 09:50 Nasal Cannula 2.00 01/12/18 09:40 100 Intake and Output 01/14/18 01/14/18 01/15/18 08:00 16:00 00:00 Intake Total 1900 ml Output Total 400 ml Balance 1500 ml Result Diagram: 01/14/18 0950 01/14/18 0950 Imaging Last Impressions Chest X-Ray 01/14/18 0600 Signed Impressions: Service Date/Time: Sunday, January 14, 2018 03:28 - CONCLUSION: Increasing parenchymal infiltrates in the left lower lung. Chato Rodríguez MD Head CT 01/12/18 0000 Signed Impressions: Service Date/Time: Friday, January 12, 2018 10:27 - CONCLUSION: Mild atrophy and white matter disease. Left parietal scalp soft tissue swelling. Paranasal sinus opacification. Gato Garcia MD Last Impressions Chest X-Ray 01/12/18 0736 Signed Impressions: Service Date/Time: Friday, January 12, 2018 07:47 - CONCLUSION: Cardiomegaly with mild acute appearing pulmonary congestion. Servando Hernandez MD Head CT 01/12/18 0000 Signed Impressions: Service Date/Time: Friday, January 12, 2018 10:27 - CONCLUSION: Mild atrophy and white matter disease. Left parietal scalp soft tissue swelling. Paranasal sinus opacification. Gato Garcia MD Objective Remarks GENERAL: 67-year-old female currently resting in bed on nasal cannula in no acute distress SKIN: Warm and dry. HEAD: Atraumatic. Normocephalic. EYES: Pupils equal and round about 3 mm bilaterally and reactive. No scleral icterus. No injection or drainage. ENT: No nasal bleeding or discharge. Mucous membranes pink and moist. NECK: Trachea midline. No JVD. CARDIOVASCULAR: Bradycardic,RR. S1, S2. No S4. Without murmurs, clicks, gallops or rubs RESPIRATORY: Few crackles appreciated in the posterior bases bilaterally. No wheezing. GASTROINTESTINAL: Abdomen soft, non-tender, nondistended. Hepatic and splenic margins not palpable. MUSCULOSKELETAL: Extremities trace bilateral lower extremity edema. No obvious deformities. NEUROLOGICAL: Awake and alert. No obvious cranial nerve deficits. Motor grossly within normal limits. Five out of 5 muscle strength in the arms and legs. Normal speech. A/P Assessment and Plan Neuro/Psych: Acetaminophen 650 mg p.o. every 6 hours as needed fever/pain 1 through 10 CV: V. 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 Currently on drip at 1 mg/min.discontinued 3/4 We will utilize esmolol drip if necessary if this fails to control V. tach Dr. Burnette notified in ED. Dr. Robin examined today 01/13. Thought most likely secondary to hypokalemia. Dr. Coello will see the patient per report from ED physician. Likely will need ablation scheduled January 29 as outpatient Currently holding Sacubitril-Valsartan 49-51 Mg Tab daily Continue metoprolol succinate 50 mg p.o. twice daily Continue furosemide 20 mg p.o. daily Currently holding metolazone 5 mg p.o. every third day Holding digoxin. She takes unknown dosage at home. Was 1.5 admission. 2.1 today. Echocardiogram 11/30 revealed EF less than 20%. Global LV dysfunction. Bilateral atrial enlargement. Moderate MR. PAP 40-50 mmHg Echocardiogram revealed normal left ventricular size. The left ventricular systolic function is severely reduced with an estimated ejection fraction less than 20%. Global hypokinesis The left atrial size is mil to moderately dilated. Mild mitral valve regurgitation. No aortic valve stenosis. No aortic valve regurgitation. There is mild tricuspid valve regurgitation. The estimated pulmonary arterial pressure is 66 mmHg. Resp: Acute respiratory insufficiency secondary to pulmonary edema Currently on nasal cannula Titrated to maintain saturations greater than equal to 90% Incentive spirometry while awake Chest x-ray revealed mild vascular congestion bilaterally. Cardiomegaly. As needed albuterol nebs every 2 hours as needed dyspnea GI: Patient is currently n.p.o. except for medications Pantoprazole for GI prophylaxis Docusate sodium/senna 1 tablet twice daily for bowel regimen : Delgado catheter currently not indicated Endo: Diabetes mellitus type 1a Holding insulin glargine 15 units at night/home medication Sliding scale insulin with Novulin R with Accu-Cheks every 4 hours to maintain euglycemia/medium regimen Check TSH Renal: History of right nephrectomy secondary to renal cell carcinoma Creatinine currently 1.8. BMP results pending Monitor urine output Accurate I's and O Heme: Polycythemia Chronic rivaroxaban use Likely secondary to dehydration Continue rivaroxaban when clinically indicated currently 50 mg daily ID: Monitor for infection FEN: Hypokalemia Replace electrolytes as clinically indicated per ICU electrolyte protocol MSK: PT evaluate and treat Access -Utilize peripheral IV. Central line if indicated Prophylaxis -GI -pantoprazole -DVT -SCD/rivaroxaban Level 3 follow-up Physician Morelia Vital MD Jan 14, 2018 18:02
[2018-01-15] VITALS (12 sets, daily range): BP systolic 118–155; BP diastolic 58–80; PULSE 50–62; RESP 9–26; TEMP 97.2–98.8; O2SAT 97–99
[2018-01-15 06:55] LABS: AUTOMATED NEUTROPHIL # 6.8 TH/MM3 (1.8-7.7); BASOPHIL # 0.1 TH/MM3 (0-0.2); BASOPHIL % 1.1 % (0.0-2.0); EOSINOPHIL # 0.2 TH/MM3 (0-0.4); EOSINOPHIL % 2.2 % (0.0-4.0); HEMATOCRIT 50.3 % (35.0-46.0); HEMOGLOBIN 16.9 GM/DL (11.6-15.3); LYMPH % 14.8 % (9.0-44.0); LYMPHOCYTE # 1.4 TH/MM3 (1.0-4.8); MEAN CELL VOLUME 89.7 FL (80.0-100.0); MEAN CORPUSCULAR HEMOGLOBIN 30.1 PG (27.0-34.0); MEAN CORPUSCULAR HGB CONC 33.5 % (32.0-36.0); MEAN PLATELET VOLUME 9.9 FL (7.0-11.0); MONO % 8.4 % (0.0-8.0); MONOCYTE # 0.8 TH/MM3 (0-0.9); NEUT % 73.5 % (16.0-70.0); PLATELET COUNT 148 TH/MM3 (150-450); RED BLOOD COUNT 5.61 MIL/MM3 (4.00-5.30); RED CELL DISTRIBUTION WIDTH 15.3 % (11.6-17.2); WHITE BLOOD COUNT 9.3 TH/MM3 (4.0-11.0)
[2018-01-15 06:56] LABS: CALCIUM 8.7 MG/DL (8.5-10.1); CREATININE 1.42 MG/DL (0.50-1.00); PHOSPHORUS 2.8 MG/DL (2.5-4.9)
--- NOTE | 2018-01-15 07:15 | HHI.PR ---
Subjective Remarks Patient is in bed at this time. No chest painThe patient is at this time. No chest pain overnight. Lightheadedness. overnight. No shortness of breath lightheadedness. Feels very weak Feels very weak.. Was in the chair in the morning. Was in the chair in the morning. Eating better, Eating better, no nausea or vomit diarrhea or constipation. Her normal bowel movement in the morning. Ing nausea or vomiting diarrhea or constipation. Normal bowel movement in the morning. Objective Vitals Vital Signs Date Time Temp Pulse Resp B/P (MAP) Pulse Ox O2 Delivery O2 Flow Rate FiO2 01/15/18 06:00 59 01/15/18 04:00 98.8 54 15 144/75 (98) 99 01/15/18 04:00 62 01/15/18 02:00 57 01/15/18 00:00 61 01/15/18 00:00 98.4 61 9 147/76 (99) 99 01/14/18 22:00 65 01/14/18 20:33 97 Nasal Cannula 2.00 01/14/18 20:00 98.6 62 21 149/70 (96) 99 01/14/18 20:00 62 01/14/18 18:00 65 01/14/18 18:00 65 26 158/75 (102) 96 01/14/18 17:00 63 28 165/76 (105) 94 01/14/18 16:00 98.1 59 22 158/75 (102) 96 01/14/18 14:00 67 01/14/18 14:00 67 22 156/74 (101) 98 01/14/18 13:01 58 28 149/72 (97) 98 01/14/18 13:01 58 01/14/18 13:00 58 26 98 01/14/18 13:00 58 01/14/18 12:00 98.5 58 14 157/75 (102) 95 01/14/18 12:00 58 01/14/18 10:53 55 158/74 01/14/18 10:01 65 01/14/18 10:01 65 31 158/74 (102) 96 01/14/18 10:00 65 01/14/18 10:00 65 25 96 01/14/18 09:50 87 Nasal Cannula 2.00 3/4/18 09:00 58 17 164/79 (107) 94 01/14/18 09:00 58 01/14/18 08:01 55 18 140/68 (92) 96 01/14/18 08:01 55 01/14/18 08:00 98.4 54 20 158/74 (102) 95 01/14/18 08:00 54 I/O 01/14/18 01/14/18 01/14/18 01/15/18 01/15/18 01/15/18 07:00 15:00 23:00 07:00 15:00 23:00 Intake Total 1900 ml 480 ml 240 ml Output Total 400 ml 1400 ml 500 ml Balance 1500 ml -920 ml -260 ml Intake Oral 0 ml 480 ml 240 ml IV Total 1900 ml Output Urine Total 400 ml 1400 ml 500 ml # Bowel Movements 0 0 1 Result Diagram: 01/15/18 0622 01/15/18 0622 Imaging Last Impressions Chest X-Ray 01/14/18 0600 Signed Impressions: Service Date/Time: Sunday, January 14, 2018 03:28 - CONCLUSION: Increasing parenchymal infiltrates in the left lower lung. Chato Rodríguez MD Head CT 01/12/18 0000 Signed Impressions: Service Date/Time: Friday, January 12, 2018 10:27 - CONCLUSION: Mild atrophy and white matter disease. Left parietal scalp soft tissue swelling. Paranasal sinus opacification. Gato Garcia MD Objective Remarks GENERAL: 67-year-old female currently resting in bed on nasal cannula in no acute distress SKIN: Warm and dry. CARDIOVASCULAR: Bradycardic,RR. S1, S2. No S4. Without murmurs, clicks, gallops or rubs RESPIRATORY: Few crackles appreciated in the posterior bases bilaterally. No wheezing. GASTROINTESTINAL: Abdomen soft, non-tender, nondistended. Hepatic and splenic margins not palpable. MUSCULOSKELETAL: Extremities trace bilateral lower extremity edema. No obvious deformities. NEUROLOGICAL: Awake and alert. No obvious cranial nerve deficits. Motor grossly within normal limits. Five out of 5 muscle strength in the arms and legs. Normal speech. A/P Problem List: (1) ventricular tachycardia storm (2) Acute respiratory failure ICD Code: J96.00 - Acute respiratory failure, unspecified whether with hypoxia or hypercapnia (3) Polycythemia ICD Code: D75.1 - Secondary polycythemia (4) Chronic systolic heart failure ICD Code: I50.22 - Chronic systolic (congestive) heart failure Status: Acute (5) Chronic anticoagulation ICD Code: Z79.01 - longterm (current) use of anticoagulants (6) Hypoxia ICD Code: R09.02 - Hypoxia Status: Acute (7) Paroxysmal atrial fibrillation ICD Code: I48.0 - Paroxysmal atrial fibrillation Status: Chronic (8) Syncope, cardiogenic ICD Code: R55 - Syncope and collapse Assessment and Plan Neuro/Psych: Acetaminophen 650 mg p.o. every 6 hours as needed fever/pain 1 through 10 CV: V. tach storm Ischemic cardiac myopathy ejection fraction less than 20% Chronic systolic heart failure Essential hypertension Dyslipidemia Status post AICD placement Moderate MR Moderate pulmonary hypertension Received 300 mg amiodarone bolus and ED currently on drip at 0.5 mg/min per protocol, 01/14 transitioned to PO Received 120 mg lidocaine push. Currently on drip at 1 mg/min.discontinued 01/14 We will utilize esmolol drip if necessary if this fails to control V. tach Dr. Burnette notified in ED. Dr. Robin examined 01/13. Thought most likely secondary to hypokalemia. Dr. Coello EP consulted by Dr Robin. Needs ablation, already scheduled January 29 as outpatient and PM on 01/30/18 Currently holding Sacubitril-Valsartan 49-51 Mg Tab daily Continue metoprolol succinate 50 mg p.o. twice daily Continue furosemide 20 mg p.o. daily Currently holding metolazone 5 mg p.o. every third day Holding digoxin. She takes unknown dosage at home. Was 1.5 admission. 2.1 today. Echocardiogram 11/30 revealed EF less than 20%. Global LV dysfunction. Bilateral atrial enlargement. Moderate MR. PAP 40-50 mmHg Echocardiogram revealed normal left ventricular size. The left ventricular systolic function is severely reduced with an estimated ejection fraction less than 20%. Global hypokinesis The left atrial size is mil to moderately dilated. Mild mitral valve regurgitation. No aortic valve stenosis. No aortic valve regurgitation. There is mild tricuspid valve regurgitation. The estimated pulmonary arterial pressure is 66 mmHg. Resp: Acute respiratory insufficiency secondary to pulmonary edema Currently on nasal cannula Titrated to maintain saturations greater than equal to 90% Incentive spirometry while awake Chest x-ray revealed mild vascular congestion bilaterally. Cardiomegaly. As needed albuterol nebs every 2 hours as needed dyspnea GI: Patient is currently n.p.o. except for medications Pantoprazole for GI prophylaxis Docusate sodium/senna 1 tablet twice daily for bowel regimen : Delgado catheter currently not indicated Endo: Diabetes mellitus type 1a Holding insulin glargine 15 units at night/home medication Sliding scale insulin with Novulin R with Accu-Cheks every 4 hours to maintain euglycemia/medium regimen Check TSH Renal: History of right nephrectomy secondary to renal cell carcinoma Creatinine currently 1.8. BMP results pending Monitor urine output Accurate I's and O Heme: Polycythemia Chronic rivaroxaban use Likely secondary to dehydration Continue rivaroxaban when clinically indicated currently 50 mg daily ID: Monitor for infection FEN: Hypokalemia Replace electrolytes as clinically indicated per ICU electrolyte protocol MSK: PT evaluate and treat Access -Utilize peripheral IV. Central line if indicated Prophylaxis -GI -pantoprazole -DVT -SCD/rivaroxaban No Problem Qualifiers (1) Acute respiratory failure: Qualified Codes: J96.01 - Acute respiratory failure with hypoxia Gabriella Driver MD Jan 15, 2018 07:15
[2018-01-15] MEDS: INSULIN NovoLIN REGULAR SUPPLEMENTAL SCALE SQ SCH ×4 (08:00→21:00)
[2018-01-15] MEDS: DOCUSATE SODIUM 50 MG/SENNA 8.6 MG TAB PO SCH ×2 (09:00→21:00)
[2018-01-15] MEDS: SODIUM CHLOR 0.9% 1000 ML INJ 1,000 ML IV SCH (09:30)
[2018-01-15] MEDS: POTASSIUM CHLORIDE 8 MEQ CAP PO SCH ×2 (09:52→21:38)
[2018-01-15] MEDS: RIVAROXABAN 20 MG TAB PO SCH (09:52)
[2018-01-15] MEDS: METOPROLOL SUCCINATE 50 MG EXTENDED RELEASE TAB PO SCH ×2 (09:53→21:34)
[2018-01-15] MEDS: FUROSEMIDE 20 MG TAB PO SCH (09:53)
[2018-01-15] MEDS: AMIODARONE 200 MG TAB PO SCH (09:53)
[2018-01-15] MEDS: SODIUM CHLORIDE 0.9% FLUSH 10 ML FLUSH IV FLUSH SCH ×2 (09:54→21:38)
[2018-01-15] MEDS: PANTOPRAZOLE SODIUM 40 MG VIAL IV PUSH SCH (09:54)
[2018-01-15] MEDS ORDERED: POVIDONE IODINE 5% (ANTISEPSIS KIT) 4 APPLICATIONS EACH NARE SCH (18:30)
[2018-01-15] MEDS ORDERED: CHLORHEXIDINE GLUCONATE 2 % 1 PACK (2 CLOTHS) TOP SCH (18:30)
[2018-01-15] MEDS ORDERED: MUPIROCIN 2% OINT 1 APPLIC/GM SYR NASAL SCH (18:30)
[2018-01-16] VITALS (9 sets, daily range): BP systolic 115–163; BP diastolic 67–86; PULSE 48–66; RESP 16–20; TEMP 97.5–98; O2SAT 93–97
[2018-01-16] MEDS: CHLORHEXIDINE GLUCONATE 2 % 1 PACK (2 CLOTHS) TOP SCH (03:32)
[2018-01-16] MEDS ORDERED: VANCOMYCIN HCL 1000 MG VIAL ONE (07:41)
[2018-01-16] MEDS ORDERED: HEPARIN NS IV FLUSH ONE (07:41)
[2018-01-16] MEDS ORDERED: FLUSH IV FLUSH ONE (07:41)
[2018-01-16] MEDS ORDERED: LIDOCAINE HCL 2% 50 ML VIAL ONE (07:42)
[2018-01-16] MEDS ORDERED: VANCOMYCIN 500 MG VIAL ONE (07:42)
[2018-01-16] MEDS ORDERED: SODIUM CHLOR 0.9% 250 ML INJ 250 ML ONE (07:42)
[2018-01-16] MEDS: INSULIN NovoLIN REGULAR SUPPLEMENTAL SCALE SQ SCH ×4 (08:00→21:47)
[2018-01-16] MEDS: PANTOPRAZOLE SODIUM 40 MG VIAL IV PUSH SCH (08:33)
[2018-01-16] MEDS: METOPROLOL SUCCINATE 50 MG EXTENDED RELEASE TAB PO SCH ×2 (08:33→21:27)
[2018-01-16] MEDS: AMIODARONE 200 MG TAB PO SCH (08:33)
[2018-01-16] MEDS: DOCUSATE SODIUM 50 MG/SENNA 8.6 MG TAB PO SCH ×2 (08:33→21:00)
[2018-01-16] MEDS: FUROSEMIDE 20 MG TAB PO SCH (08:33)
[2018-01-16] MEDS: POTASSIUM CHLORIDE 8 MEQ CAP PO SCH ×2 (08:33→21:27)
[2018-01-16] MEDS: RIVAROXABAN 20 MG TAB PO SCH (08:34)
[2018-01-16] MEDS: SODIUM CHLORIDE 0.9% FLUSH 10 ML FLUSH IV FLUSH SCH ×2 (08:34→21:00)
--- NOTE | 2018-01-16 09:01 | HHI.PR ---
Subjective Remarks Went for AICD No events overnight No fever or chills Seen in DOCU Patient says that she does not have any chest pain at this time. AICD in place with bulk dressing CDI Patient is however with the swelling of her left arm IV was infiltrated, and brownish yellow discharge concern for infection, tip was sent for culture Patient says she does not have any pain in her left arm. No fever or chills. No nausea vomiting no diarrhea constipation Objective Vitals Vital Signs Date Time Temp Pulse Resp B/P (MAP) Pulse Ox O2 Delivery O2 Flow Rate FiO2 01/16/18 03:58 97.9 50 20 124/69 (87) 97 01/16/18 03:58 48 01/16/18 00:00 97.5 49 20 115/67 (83) 96 01/15/18 23:54 51 01/15/18 22:17 Nasal Cannula 2.00 01/15/18 21:39 Nasal Cannula 2.00 01/15/18 20:35 53 01/15/18 20:00 97.2 57 18 146/80 (102) 98 01/15/18 16:00 98.7 50 22 123/63 (83) 98 01/15/18 16:00 50 01/15/18 15:59 50 26 118/58 (78) 99 01/15/18 12:00 53 01/15/18 12:00 53 23 136/73 (94) 97 01/15/18 09:03 97 Nasal Cannula 2.00 I/O 01/15/18 01/15/18 01/15/18 01/16/18 01/16/18 01/16/18 07:00 15:00 23:00 07:00 15:00 23:00 Intake Total 240 ml 600 ml 360 ml 360 ml Output Total 500 ml 1000 ml Balance -260 ml 600 ml -640 ml 360 ml Intake Oral 240 ml 600 ml 360 ml 360 ml Output Urine Total 500 ml 1000 ml # Voids 2 2 # Bowel Movements 1 1 Result Diagram: 01/15/18 0622 01/16/18 0540 Imaging Last Impressions Chest X-Ray 01/14/18 0600 Signed Impressions: Service Date/Time: Sunday, January 14, 2018 03:28 - CONCLUSION: Increasing parenchymal infiltrates in the left lower lung. Chato Rodríguez MD Head CT 01/12/18 0000 Signed Impressions: Service Date/Time: Friday, January 12, 2018 10:27 - CONCLUSION: Mild atrophy and white matter disease. Left parietal scalp soft tissue swelling. Paranasal sinus opacification. Gato Garcia MD Objective Remarks GENERAL: 67-year-old female currently resting in bed on nasal cannula in no acute distress SKIN: Warm and dry. CARDIOVASCULAR: Bradycardic,RR. S1, S2. No S4. Without murmurs, clicks, gallops or rubs RESPIRATORY: Few crackles appreciated in the posterior bases bilaterally. No wheezing. GASTROINTESTINAL: Abdomen soft, non-tender, nondistended. Hepatic and splenic margins not palpable. MUSCULOSKELETAL: Extremities trace bilateral lower extremity edema. No obvious deformities. NEUROLOGICAL: Awake and alert. No obvious cranial nerve deficits. Motor grossly within normal limits. Five out of 5 muscle strength in the arms and legs. Normal speech. A/P Problem List: (1) ventricular tachycardia storm (2) Acute respiratory failure ICD Code: J96.00 - Acute respiratory failure, unspecified whether with hypoxia or hypercapnia (3) Polycythemia ICD Code: D75.1 - Secondary polycythemia (4) Chronic systolic heart failure ICD Code: I50.22 - Chronic systolic (congestive) heart failure Status: Acute (5) Chronic anticoagulation ICD Code: Z79.01 - longterm (current) use of anticoagulants (6) Hypoxia ICD Code: R09.02 - Hypoxia Status: Acute (7) Paroxysmal atrial fibrillation ICD Code: I48.0 - Paroxysmal atrial fibrillation Status: Chronic (8) Syncope, cardiogenic ICD Code: R55 - Syncope and collapse Assessment and Plan Neuro/Psych: Acetaminophen 650 mg p.o. every 6 hours as needed fever/pain 1 through 10 CV: V. 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 Currently on drip at 1 mg/min.discontinued 3/4 We will utilize esmolol drip if necessary if this fails to control V. tach Dr. Burnette notified in ED. Dr. Robin examined 01/13. Thought most likely secondary to hypokalemia. Dr. Coello EP consulted by Dr Robin. Dr Coello evaluated patient . Patient is NPO plan for AICD placement 01/16 Currently holding Sacubitril-Valsartan 49-51 Mg Tab daily Continue metoprolol succinate 50 mg p.o. twice daily Continue furosemide 20 mg p.o. daily Currently holding metolazone 5 mg p.o. every third day Holding digoxin. She takes unknown dosage at home. Was 1.5 admission. 2.1 today. Echocardiogram 11/30 revealed EF less than 20%. Global LV dysfunction. Bilateral atrial enlargement. Moderate MR. PAP 40-50 mmHg Echocardiogram revealed normal left ventricular size. The left ventricular systolic function is severely reduced with an estimated ejection fraction less than 20%. Global hypokinesis The left atrial size is mil to moderately dilated. Mild mitral valve regurgitation. No aortic valve stenosis. No aortic valve regurgitation. There is mild tricuspid valve regurgitation. The estimated pulmonary arterial pressure is 66 mmHg. Resp: Acute respiratory insufficiency secondary to pulmonary edema Currently on nasal cannula Titrated to maintain saturations greater than equal to 90% Incentive spirometry while awake Chest x-ray revealed mild vascular congestion bilaterally. Cardiomegaly. As needed albuterol nebs every 2 hours as needed dyspnea GI: Patient is currently n.p.o. except for medications Pantoprazole for GI prophylaxis Docusate sodium/senna 1 tablet twice daily for bowel regimen : Delgado catheter currently not indicated Endo: Diabetes mellitus type 1a Holding insulin glargine 15 units at night/home medication Sliding scale insulin with Novulin R with Accu-Cheks every 4 hours to maintain euglycemia/medium regimen Check TSH Renal: History of right nephrectomy secondary to renal cell carcinoma Creatinine currently 1.8. BMP results pending Monitor urine output Accurate I's and O Heme: Polycythemia Chronic rivaroxaban use Likely secondary to dehydration Continue rivaroxaban when clinically indicated currently 50 mg daily ID: Monitor for infection Patient is however with the swelling of her left arm IV was infiltrated, and brownish yellow discharge concern for infection, tip was sent for culture Check CBC, BMP Check blood cultures We will do ultrasound of upper extremity DVT Started on vanco Monitor cultures FEN: Hypokalemia Replace electrolytes as clinically indicated MSK: PT evaluate and treat Access -Utilize peripheral IV. Central line if indicated Prophylaxis -GI -pantoprazole -DVT -SCD/rivaroxaban Patient is however with the swelling of her left arm IV was infiltrated, and brownish yellow discharge concern for infection, tip was sent for culture. Also do ultrasound to rule out DVT. S/P AICD placement 01/16/[address] Coello EP Discharge when improved Problem Qualifiers (1) Acute respiratory failure: Qualified Codes: J96.01 - Acute respiratory failure with hypoxia Gabriella Driver MD Jan 16, 2018 09:00
[2018-01-16] MEDS ORDERED: AMIO200T PO (09:04)
[2018-01-16] MEDS ORDERED: DIGO0.12 PO (09:04)
--- NOTE | 2018-01-16 09:07 | HHI.FF ---
Face to Face Verification Diagnosis: (1) Cardiomyopathy (2) AICD (automatic cardioverter/defibrillator) present (3) CHF (congestive heart failure) (4) HCAP (healthcare-associated pneumonia) (5) Hypokalemia (6) NSTEMI (non-ST elevated myocardial infarction) (7) Chronic systolic heart failure (8) Paroxysmal atrial fibrillation (9) Syncope, cardiogenic (10) Chronic anticoagulation (11) Polycythemia (12) Acute respiratory failure (13) Ventricular tachycardia (14) Ventricular fibrillation (15) Acute on chronic systolic (congestive) heart failure Physical Therapy Order: Evaluate and Treat Home Health Nursing Order: Medical education Signs/symptoms of disease process CHF education Medication education-adverse effect Nursing assessment with vital signs I have seen patient Beulah Andersen on 01/16/18. My clinical findings support the need for the requested home health care services because: Ltd mobility - disease progression Patient has SOB I certify that my clinical findings support that this patient is homebound because: Post-op weakness Gabriella Driver MD Jan 16, 2018 09:07
[2018-01-16] MEDS ORDERED: MIDAZOLAM HCL 2 MG/2 ML VIAL ONE (09:41)
--- NOTE | 2018-01-16 11:26 | CATHPROC ---
Patient Name: KYLE PULIDO Study #: [id number] Initial MD: Jhonatan Coello Date of : 1950 Study Date: 01/16/2018 Cardiac Catheterization Report 01/16/2018 11:47:43 AM Financial #: [id number] 1 of 9 Patient Name: KYLE PULIDO Study #: [id number] Initial MD: Jhonatan Coello Date of : 1950 Study Date: 01/16/2018 Entire Case Report Patient Information Patient Name KYLE PULIDO Date of 1950 Age 67 years Financial # [id number] Gender F AlternateID Lab Number 2 Room Number 1417 Height (in) 62.0 Height (cm) 157.5 BSA 1.80 Weight (lbs) 173.8 Weight (kg) 79.0 Patient Address/Phone Number Home Address [facility] Home Phone Number [phone] [facility] [address] Study Information Study Number Admission Scheduled Start Study Start [id number] Jan 12 2018 8:15AM 01/16/2018 Jan 16 2018 8:40AM [place] [facility] Cardiac Pacer/ICD Admit Source Facility Department Emergency department [facility] Waste Chopper Physician and Clinical Staff Initial Jhonatan Martinez Guest House Manager Noelle Walsh,DELMAR Recorder Lacie Baker RCIS TECH2 Scrub Timmy Simpson,(R) Procedures Performed Procedure Location (Site) Vessel Name Lead Insertion Venogram Coronary Sinus Other Wire insertion Subclav. Vein (Lft Subclavian Vein 01/16/2018 11:47:43 AM Financial #: [id number] 2 of 9 Patient Name: KYLE PULIDO Study #: [id number] Initial MD: Jhonatan Coello Date of : 1950 Study Date: 01/16/2018 Equipment Time Motor Installer Description Size Mfg Part Number Used/Scraped [id number] 08:49 [employer] WIRE, ASAHI PROWATER 180CM 180CM Used *[id number] BIOS[employer] [id number] 10:41 CABLE, INTERFACE ECO CARTO 3 Used INC. *[id number] DEFIBRILLATOR, INTICA 7 VR-T 10:53 BIOTRONIK VVE-VDDR [id number] Used DX 10:05 BIOTRONIK LEAD, SOLIA 60 53 PRO MRI * [id number] Used DERMABOND, ADHESIVE SKIN [id number] 08:42 CORDIS/PACER * Used GLUE MINI *[id number] TP-1103 08:42 MEDLINE INDUSTRIES SUTURE, STRIP PLUS 1/2" * Used *[id number] 08:42 MEDLINE PACER [place], LIMB * 2530 *[id number] Used [id number] 08:42 MEDLINE PACER PACK, PACER CUSTOM * Used *[id number] 08:46 Qurater PACK, ANGIOPLASTY * [id number] Used 08:47 Qurater PACER SAFE SHEATH, FR7, 13CM FR 7 [id number] Used 08:48 Qurater PACER SAFE SHEATH, FR9, 13CM FR 9 CLS-1009 Used 09:59 Needle Sponge Count 1 111 Used 09:59 Needle Sponge Count 20 200 Used 09:59 Needle Sponge Count 4 4 Used 10:42 NYCOMED OMNIPAQUE, 300 MG, 50ML 50ML [id number] Used SUTURE, 0 ETHIBOND [CT1] (CX21D), 8pk SUTURE, 2-0 VICRYL [CT1] (CVY567I) SUTURE, 2-0 VICRYL [CT1] ([id number]) SUTURE, 4-0 VICRYL [PS2] ([id number]) [id number] 08:42 [employer],WARM AIR CCL * Used *[id number] 10:42 [facility] [employer] LIVEWIRE, QUAD, LRG SWEEP FR 6 [id number] Used [id number] 08:47 [facility] [employer] LIVEWIRE, QUAD, MED SWEEP FR 6 Used *[id number] [facility] PAD, ELECTROSURGICAL 08:42 * [id number] *[id number] Used SURGICAL GROUNDING ORANGE LEAD, ATTAIN PERFORMA 10:46 VITATRON MEDTRONIC 88CM 4398-88CM Used STRAIGHT, 88CM [id number] 08:49 VITATRON MEDTRONIC PLASMABLADE, PEAD 3.0S * Used *[id number] [id number] 08:42 BostIn[employer] DRU. / * Used *[id number] 01/16/2018 11:47:43 AM Financial #: [id number] 3 of 9 Patient Name: KYLE PULIDO Study #: [id number] Initial MD: Jhonatan Coello Date of : 1950 Study Date: 01/16/2018 Equipment Model, Serial, Lot Number and Expiration Data Description Model Number Serial Number Lot Number Expiration Date DEFIBRILLATOR, INTICA 7 VR-T DX [id number] 12-13-2018 LEAD, ATTAIN PERFORMA 4398 [id number] 11-10-2019 STRAIGHT, 88CM LEAD, SOLIA 60 53 PRO MRI [id number] 11-12-2019 LIVEWIRE, QUAD, MED SWEEP [id number] 10-12-2020 PACK, ANGIOPLASTY [id number] 12-13-2019 SAFE SHEATH, FR7, 13CM [id number] 10-19-2021 Insurance Information Insurance Payor Medicare, Private Health Insurance Third Green Party Third Green Party Number HU[employer] CHOICE PPO HUMCRPPO History: Current Medications Medication Dosage/Unit Route Frequency Last Date/Time Taken LASIX K-Dur LOPRESSOR LANTUS XARELTO Statins (any) History: Allergies Allergy Reaction penicillin G Nausea/Vomiting History: Risk Factors Hypertension Dyslipidemia Previous Heart Failure Yes Yes Yes Cerebrovascular Chronic Lung Diabetes Disease Disease History: Symptoms/Diagnosis Selection Items Syncope History: Arrhythmias Selection Items Atrial fibrillation Sustained VT Labs 01/16/2018 11:47:43 AM Financial #: [id number] 4 of 9 Patient Name: KYLE PULIDO Study #: [id number] Initial MD: Jhonatan Coello Date of : 1950 Study Date: 2017 Hgb (g/dl) Hct (%) Platelets (thousands) 11.60-17.00 35.00-51.00 150.00-450.00 16.0 50 148 Glucose (mg/dl) BUN (mg/dl) Creatinine (mg/dl) BUN:Creatinine (1:x) 74.00-106.00 7.00-18.00 0.50-1.30 10.00-20.00 110 29 1.4 20.7 Na (meq/l) K (meq/l) 136.00-145.00 3.50-5.10 141 3.7 INR (PTT:PT) 0.90-1.10 1.4 CPK-MB (ng/ML) 0.50-3.60 Not Drawn Medication Medication Total Dose (Bolus/Oral) Medication Total Dosage/Unit 2% XYLOCAINE 50 mL Medications (Bolus/Oral) Medication Time Given Dosage/Unit Administered By Reason 2% XYLOCAINE 01/16/2018 10:00:40 AM 50 mL Jhonatan Coello 50 mL 2% XYLOCAINE given in lab by Jhonatan Coello via Subcutaneous to left upper chest. Ordered by Jhonatan Becerra. Medication (Drip) Medication Time Given Dosage/Unit Concentration/Unit Diluent (ml) Solutio n IV Solutions 01/16/2018 9:29:29 AM 0 mL (IV) 1000 NaCl .9 Patient arrived on IV Solutions in Right Forearm via Peripheral IV. Pump/Drip Flow = 20 ml/hr using N aCl .9. IV Solutions 01/16/2018 9:29:31 AM 0 mL (IV) 1000 NaCl .9 Patient arrived on IV Solutions in Right Antecubital via Peripheral IV. Pump/Drip Flow = 20 ml/hr usi ng NaCl .9. VANCOMYCIN DRIP 01/16/2018 9:45:28 AM 1 g 1 g VANCOMYCIN DRIP given in lab by Noelle Walsh RN in Right Antecubital via Peripheral IV. Orde red by Jhonatan Coello. 01/16/2018 11:47:43 AM Financial #: [id number] 5 of 9 Patient Name: KYLE PULIDO Study #: [id number] Initial MD: Jhonatan Coello Date of : 1950 Study Date: 01/16/2018 Initial Case Assessment Cardiovascular HR Rhythm NIBP 60 paced 167/78 Final Case Assessment Cardiovascular HR Rhythm NIBP Chest Pain 60 paced 121/58 0 Neurological State Oriented to time-place- Alert Moves all extremities person Respiration - General SpO2 (%) 90 Vitals Summary Pain Time HR NIBP SpO2 Resp Temp EtCO2 Apnea Sergey Lamb Comment Level 09:30:26 60 167/72 93.0 18 11:20:19 60 121/58 90.0 Chronological Log Time Study Chronological Log 9:15:11 Patient arrived via Bed. 9:15:16 Patient Name, D.O.B, / Armband Verified By R.N. 9:17:22 Consent signed by the physician and the patient and verified by the Waste [employer] staff. 9:17:28 Pre-op and post- op instructions given; patient acknowledges understanding of instructions. 9:17:36 Verbal Stimulation=2 Physical Stimulation=2 Airway=2 Respiration=2 TOTAL=8. (0=absent, 1=li mited, 2=present) 9:18:24 2% CHLORHEXIDINE GLUCONATE WASH AND NASAL SWIPE DONE PRIOR TO PROCEDURE. 9:20:04 Disposable Defibrillator Pads Placed On Patient. 9:20:09 Kim Prominences Protected 9:20:18 Patient Warmer Placed on the Table. 9:22:30 Bovie ground pad applied to: right upper thigh 9:27:50 Anesthesia at bedside. GUI Steele Assumes care of patient. 9:28:06 Patient has been NPO for More than 6Hrs. 9:28:09 Skin Breakdown-left hand and arm swollen from infiltrated IV. 9:29:28 A # 20 IV was noted in the Hand (right). Grade = patent 9:29:29 Patient arrived on IV Solutions in Right Forearm via Peripheral IV. Pump/Drip Flow = 20 ml/ hr using NaCl .9. 01/16/2018 11:47:43 AM Financial #: [id number] Patient Name: KYLE PULIDO Study #: [id number] Initial MD: Jhonatan Coello Date of : 1950 Study Date: 01/16/2018 9:29:30 A # 20 IV was noted in the Antecubital (right). Grade = patent 9:29:31 Patient arrived on IV Solutions in Right Antecubital via Peripheral IV. Pump/Drip Flow = 20 ml/hr using NaCl .9. 9:29:32 A # 20 IV was noted in the Hand (right). Grade = saline locked 9:29:39 Table restraints applied according to hospital policy 9:30:18 Assessment: Initial Case, HR=60 BPM, Rhythm=paced, VPWJ=591/78 mmhg 9:30:26 HR=60 bpm, LQAT=951/72 mmhg, SpO2=93.0 %, Resp=18 B/min 9:45:23 Left Upper Chest Prepped Times Two and draped after a 3 min dry time. 1 g VANCOMYCIN DRIP given in lab by Noelle Walsh, DELMAR in Right Antecubital via Peripheral IV . Ordered by Mode 9:45:28 Jhonatan. First Sponge And Instrument Count Done by Timmy Simpson RT(R). 9:52:35 Hypo's: 4, Sponges: 20, Bovie/scratch: 1 Sutures: 10, Blades: 1, Instruments: 26, Syveck Patches: 0 9:55:20 MD arrived. Time Out. Correct patient, procedure, procedure equipment, site and side verified with physicia n present. Time 9:59:41 concurred by MD, individual staff and JET HANDLER. Time Out #2 - Consents verified, patient in correct position, all results are labled and displa yed, safety precautions 9:59:42 taken, antibiotics administered. Time out concurred by MD, individual staff and JET HANDLER in procedu re 10:00:18 Case Start 10:00:40 50 mL 2% XYLOCAINE given in lab by Jhonatan Coello via Subcutaneous to left upper chest. Orde red by Jhonatan Coello. 10:01:11 Surgical Incision Made. 10:01:39 A pocket was opened at the L Upper Chest. 10:02:08 A device was explanted. 10:03:35 Vascular access was obtained in the Subclav. Vein (Lft. 10:03:39 Wire inserted 10:04:01 Vascular access was obtained in the Subclav. Vein (Lft. 10:04:03 Wire inserted 10:04:44 A SAFE SHEATH, FR7, 13CM FR 7 was advanced into the Subclav. Vein (Lft using the Percutaneo us technique. 10:05:08 A LEAD, SOLIA 60 53 PRO MRI * was inserted and positioned in the RA. 10:05:32 Lead placement verified under fluoroscopy 10:06:34 The Atrial lead impedance and threshold is being tested. 10:07:44 The Atrial lead was sutured to the fascia. 10:10:00 A SAFE SHEATH, FR9, 13CM FR 9 was advanced into the Subclav. Vein (Lft using the Percutaneo us technique. 10:10:31 A Medtronic BiVi delivery sheath was preloaded with a Livewire Quad catheter. A LIVEWIRE, QUAD, MED SWEEP FR 6 and delivery sheath were advanced via Subclav. Vein (Lft) and placed in the CS. 10:11:32 Placement was visually confirmed under fluoroscopy. 10:32:05 Med Sweep Livewire Catheter was removed, unable to cannulate CS. A LIVEWIRE, QUAD, LRG SWEEP FR 6 was advanced vis Subclav. Vein (Lft and placed in the CS. Plac ement was 10:33:43 visually confirmed under fluoroscopy. 10:40:11 The Coronary Sinus was manually injected with 10 cc's of contrast. OMNIPAQUE, 300 MG, 50ML 50ML used. 10:40:48 CS cannulated, Large Sweep Livewire removed. 01/16/2018 11:47:43 AM Financial #: [id number] Patient Name: KYLE PULIDO Study #: [id number] Initial MD: Jhonatan Coello Date of : 1950 Study Date: 01/16/2018 10:41:06 A LEAD, ATTAIN PERFORMA STRAIGHT, 88CM 88CM was inserted and positioned in the CS/LV. A WIRE, [facility] PROWATER 180CM 180CM was inserted via Subclav. Vein (Lft. Inserted into CS Lead a nd advanced to 10:43:28 CS. 10:45:31 Wire and delivery sheath removed 10:45:33 Lead placement verified under fluoroscopy 10:46:07 The CS/LV lead impedance and threshold is being tested. 10:47:28 The CS/LV lead was sutured to the fascia. 10:50:13 Pocket flushed with antibiotic solution 10:53:21 A DEFIBRILLATOR, INTICA 7 VR-T DX VVE-VDDR was connected and placed in the pocket. 10:55:25 Closing the pocket. One suture added to the count. Second Sponge And Instrument Count Done by Jhonatan Coello. 10:55:47 Hypo's: 4, Sponges: 20, Bovie/scratch: 1 Sutures: ~SUTURE~, Blades: 1, Instruments: 26, Syveck Patches: 0 11:13:08 The pocket was closed. The Final Sponge And Instrument Count Done by Timmy Simpson RT(R). 11:13:17 Hypo's: 4, Sponges: 20, Bovie/scratch: 1 Sutures: 11, Blades: 1, Instruments: 26, Syveck Patches: 0 11:13:42 Implant Procedure was performed. A Bivent ICD Implant . (Dual) single chamber ICD upgraded to dual chamber BiVentricular ICD wit h insertion of RA and 11:13:50 CS leads. 11:13:55 Dermabond applied to site. 11:18:30 Steri-strips and a sterile dressing applied to site. 11:18:31 Case End 11:18:33 A sling was placed on the affected arm. 11:20:19 HR=60 bpm, DIFC=071/58 mmhg, SpO2=90 % Assessment: Final Case, HR=60 BPM, Rhythm=paced, TZOI=086/58 mmhg, Chest Pain=0 11:21:14 Neurological: State=Alert, Ox3, HIGHTOWER Respiration: SpO2=90 % 11:21:51 No case complications noted. 11:21:53 Cine recording checked. 11:21:55 Bedside Report will be given. 11:21:57 Implantable Device card placed in patient's chart. 11:22:04 Defibrillator and ground pads removed. Skin intact. 11:24:07 Patient moved to bed 11:25:14 Patient transported to DOCU. 01/16/2018 11:47:43 AM Financial #: [id number] Patient Name: KYLE PULIDO Study #: [id number] Initial MD: Jhonatan Coello Date of : 1950 Study Date: 01/16/2018 End Study - Contrast Media Used In Study Contrast Total Opened (mL) Total Used (mL) Total Wasted (mL) Omnipaque 10 10 0 End Study - Maximum Contrast Load Max Contrast Load (mL) 282.1 End Study - Radiation Exposure Fluoro Time (minutes) 25.6 End Study - Patient Disposition Complications Transferred To Interventional Outcome No Telemetry Bed successful 01/16/2018 11:47:43 AM Financial #: [id number]
[2018-01-16] MEDS ORDERED: PROPOFOL 200 MG/20 ML AMP IV ONE (12:00)
[2018-01-16] MEDS ORDERED: LIDOCAINE HCL 1% PF 5 ML SYRINGE OTHER ONE (12:00)
[2018-01-16] MEDS ORDERED: IODIXANOL 320 MG/ML 50 ML VIAL (for Cath Lab) OTHER ONE (12:20)
--- NOTE | 2018-01-16 12:39 | MB ---
cc: Jhonatan Coello MD DATE OF CONSULT: 01/15/2018 REASON FOR CONSULTATION: Ventricular tachycardia, defibrillator shock. HISTORY OF PRESENT ILLNESS: Mrs. Andersen is a 59-year-old female who has heart failure, cardiomyopathy, ejection fraction around 15-20%, atrial fibrillation. She had previously a defibrillator inserted, was admitted defibrillator shock. The shock was due to ventricular fibrillation. The patient was previously scheduled for atrial fibrillation ablation and upgrade. Since hospitalization, stable. Wall was consulted for further evaluation and management. The chart was reviewed. The patient was evaluated. ALLERGIES: PENICILLIN. SOCIAL HISTORY: Negative for smoking and drinking. FAMILY HISTORY: Noncontributory to her current medical condition. MEDICATIONS: Currently the patient is on magnesium, potassium, amiodarone 400 milligrams a day for now, digoxin 0.125 milligrams a day, Lasix, , Toprol extended release. REVIEW OF SYSTEMS: She feels no chest pain. Some shortness of breath with minimal activity. No shock. PHYSICAL EXAMINATION: GENERAL: Alert, fully oriented. VITAL SIGNS: Blood pressure 118/58, pulse 50, respiratory rate 20. LUNGS: Ventilated. CARDIOVASCULAR: S1, S2 regular. No gallop. ABDOMEN: Soft, no mass. EXTREMITIES: No abnormality. ECHOCARDIOGRAM: Sinus rhythm blocked. LABORATORY DATA: Hemoglobin is 16, white blood cell 9.28, potassium 3.2, creatinine 1.42, ionized 1.4. ASSESSMENT AND RECOMMENDATIONS: Mrs. Andersen has atrial fibrillation, but she also has severe heart failure. She is back in sinus rhythm. She is class 2-3. What she was having is ventricular fibrillation. There is no need for ablation for that. She is going to need upgrade of the defibrillator to a biventricular pacer defibrillator. The risks, the nature and the benefits are clearly stated to her. The risk include pneumothorax, cardiac perforation, stroke and even . She understands and agreed to proceed. If she has atrial fibrillation in the future, then if necessary ablation will be considered. The case extensively discussed with her. MD SYLVIA Ortiz/POP , 06:20 PM , 11:51 PM
[2018-01-16] MEDS ORDERED: DO NOT ADM ANY ANTICOAGULANT DRUGS PRN (13:00)
[2018-01-16] MEDS ORDERED: Vancomycin Consult Pharmacy 1 EA OTHER SCH (13:30)
[2018-01-16] MEDS ORDERED: VANCOMYCIN INJ 1,000 MG in SODIUM CHLOR 0.9% 250 ML INJ 250 ML IV SCH (14:00)
[2018-01-16 15:35] LABS: AUTOMATED NEUTROPHIL # 6.7 TH/MM3 (1.8-7.7); BASOPHIL # 0.1 TH/MM3 (0-0.2); BASOPHIL % 1.1 % (0.0-2.0); EOSINOPHIL # 0.3 TH/MM3 (0-0.4); EOSINOPHIL % 2.7 % (0.0-4.0); HEMATOCRIT 44.2 % (35.0-46.0); HEMOGLOBIN 15.4 GM/DL (11.6-15.3); LYMPH % 17.3 % (9.0-44.0); LYMPHOCYTE # 1.7 TH/MM3 (1.0-4.8); MEAN CORPUSCULAR HGB CONC 34.8 % (32.0-36.0); MEAN PLATELET VOLUME 9.7 FL (7.0-11.0); MONO % 9.1 % (0.0-8.0); MONOCYTE # 0.9 TH/MM3 (0-0.9); NEUT % 69.8 % (16.0-70.0); PLATELET COUNT 214 TH/MM3 (150-450); RED BLOOD COUNT 4.97 MIL/MM3 (4.00-5.30); RED CELL DISTRIBUTION WIDTH 15.5 % (11.6-17.2); WHITE BLOOD COUNT 9.6 TH/MM3 (4.0-11.0)
[2018-01-16 15:55] LABS: BICARBONATE 28.3 MEQ/L (21.0-32.0); CALCIUM 8.3 MG/DL (8.5-10.1); CREATININE 1.28 MG/DL (0.50-1.00)
[2018-01-16] MEDS ORDERED: POTASSIUM CHLORIDE 10 MEQ CONTROLLED RELEASE TAB PO ONE (16:15)
--- NOTE | 2018-01-16 22:54 | RADRPT ---
EXAM DATE/TIME: 01/16/2018 18:07 [facility] COMPARISON: No previous studies available for comparison. INDICATIONS : Bilateral arm swelling. MEDICAL HISTORY : Myocardial infarction. Congestive heart failure. Hypercholesterolemia. Afib. HTN. COPD. Pneumonia. Dy spnea. Arthritis. Osteoporosis. Renal carcinoma. Diabetes. Anxiety. SURGICAL HISTORY : Tonsillectomy. Pacemaker. Hysterectomy. Right nephrectomy. ENCOUNTER: Initial ACUITY: 1 day PAIN SCORE: 0/10 LOCATION: Bilateral arms. FINDINGS: RIGHT UPPER EXTREMITY: There is spontaneous flow documented in the brachial, basilic, cephalic, axillary, and subclavian vei ns. The vessels are compressible and augmentation response is documented. No filling defects are se en. The flow is phasic with respiration. Direction of flow in the jugular vein is caudal. LEFT UPPER EXTREMITY: There is spontaneous flow documented in the brachial, basilic, cephalic, axillary, and subclavian vei ns. The vessels are compressible and augmentation response is documented. No filling defects are se en. The flow is phasic with respiration. Direction of flow in the jugular vein is caudal. CONCLUSION: Negative for deep venous thrombosis bilateral upper extremity. Chato Rodríguez MD on January 16, 2018 at 22:52 Board Certified Radiologist. This report was verified electronically.
[2018-01-17] VITALS (12 sets, daily range): BP systolic 146–174; BP diastolic 65–83; PULSE 60–80; RESP 18–20; TEMP 97.9–98.6; O2SAT 92–95
[2018-01-17] MEDS: CHLORHEXIDINE GLUCONATE 2 % 1 PACK (2 CLOTHS) TOP SCH (00:48)
[2018-01-17] MEDS ORDERED: VANCOMYCIN INJ 1,500 MG in SODIUM CHLORID 0.9% 500 ML INJ 500 ML IV SCH (06:00)
[2018-01-17 06:30] LABS: BASOPHIL # 0.1 TH/MM3 (0-0.2); BASOPHIL % 1.6 % (0.0-2.0); EOSINOPHIL # 0.5 TH/MM3 (0-0.4); EOSINOPHIL % 6.4 % (0.0-4.0); HEMATOCRIT 44.3 % (35.0-46.0); HEMOGLOBIN 14.8 GM/DL (11.6-15.3); LYMPH % 17.4 % (9.0-44.0); LYMPHOCYTE # 1.4 TH/MM3 (1.0-4.8); MEAN CELL VOLUME 89.2 FL (80.0-100.0); MEAN CORPUSCULAR HEMOGLOBIN 29.7 PG (27.0-34.0); MEAN CORPUSCULAR HGB CONC 33.3 % (32.0-36.0); MEAN PLATELET VOLUME 9.7 FL (7.0-11.0); MONO % 12.3 % (0.0-8.0); NEUT % 62.3 % (16.0-70.0); PLATELET COUNT 178 TH/MM3 (150-450); RED BLOOD COUNT 4.97 MIL/MM3 (4.00-5.30); RED CELL DISTRIBUTION WIDTH 15.6 % (11.6-17.2); WHITE BLOOD COUNT 8.1 TH/MM3 (4.0-11.0)
[2018-01-17 07:06] LABS: BICARBONATE 28.7 MEQ/L (21.0-32.0); CALCIUM 8.4 MG/DL (8.5-10.1); CREATININE 1.1 MG/DL (0.50-1.00)
[2018-01-17] MEDS ORDERED: POTASSIUM CHLORIDE 20 MEQ CONTROLLED RELEASE TAB PO ONE ×3 (08:00→12:00)
[2018-01-17] MEDS: INSULIN NovoLIN REGULAR SUPPLEMENTAL SCALE SQ SCH ×2 (08:00→12:48)
--- NOTE | 2018-01-17 08:10 | PD.CARD.PN ---
Subjective Subjective Remarks Feeling better. Objective Medications Current Medications Medications (Trade) Dose Ordered Sig/Baldomero Route Start Time Stop Time Status Last Admin (NS Flush) 2 ml UNSCH PRN IV FLUSH 01/12/18 08:30 01/17/18 06:02 (NS Flush) 2 ml BID IV FLUSH 01/12/18 09:00 01/16/18 21:00 (Protonix Inj) 40 mg DAILY IV PUSH 01/12/18 10:00 01/16/18 08:33 (Zofran Inj) 4 mg Q6H PRN IV PUSH 01/12/18 08:30 01/12/18 11:05 (Albuterol Neb) 2.5 mg Q2HR NEB PRN INH 01/12/18 08:30 Miscellaneous Information 1 Q361D XX 01/12/18 08:30 (Chlorhexidine 2% Cloth) 3 pack Taper DAILY@04 TOP 01/13/18 04:00 01/09/19 03:59 01/16/18 03:32 (Chlorhexidine 2% Cloth) 3 pack UNSCH PRN TOP 01/12/18 08:30 (Jacinta-Colace) 1 tab BID PO 01/12/18 09:00 01/16/18 08:33 (Milk Of Magnesia Liq) 30 ml Q12H PRN PO 01/12/18 08:30 (Senokot) 17.2 mg Q12H PRN PO 01/12/18 08:30 (Dulcolax Supp) 10 mg DAILY PRN RECTAL 01/12/18 08:30 (Lactulose Liq) 30 ml DAILY PRN PO 01/12/18 08:30 (Lasix) 20 mg DAILY PO 01/12/18 10:00 01/16/18 08:33 (Zaroxolyn) 5 mg DAILY PO 01/12/18 10:00 Future Hold 01/13/18 08:53 (Toprol Xl) 50 mg BID PO 01/12/18 10:00 01/16/18 21:27 (KCl) 8 meq BID PO 01/12/18 10:15 01/16/18 21:27 (D50w (Vial) Inj) 50 ml UNSCH PRN IV PUSH 01/12/18 08:30 (Glucagon Inj) 1 mg UNSCH PRN OTHER 01/12/18 08:30 (NovoLIN R SUPPLEMENTAL SCALE) 1 ACHS SLIDING SCALE SQ 01/12/18 12:00 01/16/18 21:47 (Lanoxin) 0.125 mg DAILY PO 01/13/18 09:00 Future Hold 01/13/18 08:53 (Xarelto) 15 mg DAILY PO 01/14/18 09:00 01/15/18 09:52 (Cordarone) 400 mg DAILY PO 01/14/18 11:30 01/16/18 08:33 (Senokot) 8.6 mg DAILY PRN PO 01/14/18 15:15 (Betadine 5% Antisepsis Kit) 1 applic TELEPATHIST EACH NARE 01/15/18 18:30 01/19/18 18:29 (Bactroban Nasal 2% Oint) 1 applic TELEPATHIST NASAL 01/15/18 18:30 01/19/18 18:29 (Chlorhexidine 2% Cloth) 3 pack TELEPATHIST TOP 01/15/18 18:30 01/19/18 18:29 Miscellaneous Information ALL NURSING DEPARTME... UNSCH PRN .XX 01/16/18 13:00 01/17/18 12:59 Pharmacy Profile Note 0 ml @ 0 mls/hr UNSCH OTHER 01/16/18 13:30 Vancomycin HCl 1500 mg/Sodium Chloride 515 ml @ 250 mls/hr Q24H IV 01/17/18 06:00 01/17/18 06:00 Miscellaneous Information SPECIFIC LAB TO BE DRAWN:VANCOMYCIN TROUGH DATE TO... ONCE ONCE .XX 01/19/18 05:45 01/19/18 05:46 (KCl) 40 meq ONCE ONCE PO 01/17/18 08:00 01/17/18 08:01 Vital Signs / I&O Vital Signs Date Time Temp Pulse Resp B/P (MAP) Pulse Ox O2 Delivery O2 Flow Rate FiO2 01/17/18 06:00 60 01/17/18 05:00 60 01/17/18 04:00 98.6 60 20 174/80 (111) 92 01/17/18 04:00 60 01/17/18 03:00 60 01/17/18 02:00 60 01/17/18 01:00 60 01/17/18 00:00 60 01/17/18 00:00 97.9 60 20 161/77 (105) 94 01/16/18 23:00 60 01/16/18 22:00 60 01/16/18 21:00 60 01/16/18 20:00 60 01/16/18 20:00 97.7 60 20 151/73 (99) 93 01/16/18 19:00 60 01/16/18 17:38 98.0 60 16 163/85 (111) 94 01/16/18 17:38 60 I/O 01/16/18 01/16/18 01/16/18 01/17/18 01/17/18 01/17/18 07:00 15:00 23:00 07:00 15:00 23:00 Intake Total 360 ml 250 ml 240 ml 240 ml Output Total 650 ml Balance 360 ml 250 ml 240 ml -410 ml Intake Oral 360 ml 240 ml 240 ml IV Total 250 ml Output Urine Total 650 ml # Voids 2 Physical Exam GENERAL: Well-nourished, well-developed patient. SKIN: Warm and dry. Left chest wall incision well approximated without erythema or drainage. HEAD: Normocephalic. EYES: No scleral icterus. No injection or drainage. NECK: Supple, trachea midline. No JVD or lymphadenopathy. CARDIOVASCULAR: Regular rate and rhythm without murmurs, gallops, or rubs. RESPIRATORY: Breath sounds equal bilaterally. No accessory muscle use. GASTROINTESTINAL: Abdomen soft, non-tender, nondistended. EXTREMITIES: No cyanosis, or edema. NEUROLOGICAL: Awake, alert, and oriented x 3. Non-focal. Laboratory Laboratory Tests Test 01/16/18 14:57 01/17/18 05:04 White Blood Count 9.6 TH/MM3 8.1 TH/MM3 Red Blood Count 4.97 MIL/MM3 4.97 MIL/MM3 Hemoglobin 15.4 GM/DL 14.8 GM/DL Hematocrit 44.2 % 44.3 % Mean Corpuscular Volume 89.0 FL 89.2 FL Mean Corpuscular Hemoglobin 31.0 PG 29.7 PG Mean Corpuscular Hemoglobin Concent 34.8 % 33.3 % Red Cell Distribution Width 15.5 % 15.6 % Platelet Count 214 TH/MM3 178 TH/MM3 Mean Platelet Volume 9.7 FL 9.7 FL Neutrophils (%) (Auto) 69.8 % 62.3 % Lymphocytes (%) (Auto) 17.3 % 17.4 % Monocytes (%) (Auto) 9.1 % 12.3 % Eosinophils (%) (Auto) 2.7 % 6.4 % Basophils (%) (Auto) 1.1 % 1.6 % Neutrophils # (Auto) 6.7 TH/MM3 5.0 TH/MM3 Lymphocytes # (Auto) 1.7 TH/MM3 1.4 TH/MM3 Monocytes # (Auto) 0.9 TH/MM3 1.0 TH/MM3 Eosinophils # (Auto) 0.3 TH/MM3 0.5 TH/MM3 Basophils # (Auto) 0.1 TH/MM3 0.1 TH/MM3 CBC Comment DIFF FINAL DIFF FINAL Differential Comment Blood Urea Nitrogen 28 MG/DL 24 MG/DL Creatinine 1.28 MG/DL 1.10 MG/DL Random Glucose 179 MG/DL 88 MG/DL Calcium Level 8.3 MG/DL 8.4 MG/DL Sodium Level 141 MEQ/L 143 MEQ/L Potassium Level 3.4 MEQ/L 2.8 MEQ/L Chloride Level 105 MEQ/L 104 MEQ/L Carbon Dioxide Level 28.3 MEQ/L 28.7 MEQ/L Anion Gap 8 MEQ/L 10 MEQ/L Estimat Glomerular Filtration Rate 41 ML/MIN 49 ML/MIN Imaging Last Impressions Upper Extremity Ultrasound 01/16/18 0000 Signed Impressions: Service Date/Time: Tuesday, January 16, 2018 18:07 - CONCLUSION: Negative for deep venous thrombosis bilateral upper extremity. Chato Rodríguez MD Chest X-Ray 01/14/18 0600 Signed Impressions: Service Date/Time: Sunday, January 14, 2018 03:28 - CONCLUSION: Increasing parenchymal infiltrates in the left lower lung. Chato Rodríguez MD Head CT 01/12/18 0000 Signed Impressions: Service Date/Time: Friday, January 12, 2018 10:27 - CONCLUSION: Mild atrophy and white matter disease. Left parietal scalp soft tissue swelling. Paranasal sinus opacification. Gato Garcia MD Assessment and Plan Problem List: (1) Paroxysmal atrial fibrillation ICD Codes: I48.0 - Paroxysmal atrial fibrillation Status: Chronic Plan: On Xarelto. Can be monitored via device interrogation. If necessary, atrial fibrillation ablation will be scheduled in the future. (2) Cardiomyopathy ICD Codes: I42.9 - Cardiomyopathy Status: Chronic Plan: EF 15-20%. On beta-lesly but no ACEI/ARB. Creatinine on admission 1.79, now down to 1.1. Could consider optimizing heart failure therapy with the addition of ACEI/ARB if renal indices remains stable. (3) ventricular tachycardia storm Plan: BiVICD implanted for sudden cardiac prevention and cardiac resynchronization therapy. Stable for discharge home from EP standpoint when cleared by managing team, per my discussion with Dr. Coello. Meredith Daniel Jan 17, 2018 08:10
[2018-01-17] MEDS: METOPROLOL SUCCINATE 50 MG EXTENDED RELEASE TAB PO SCH (08:39)
[2018-01-17] MEDS: FUROSEMIDE 20 MG TAB PO SCH (08:39)
[2018-01-17] MEDS: AMIODARONE 200 MG TAB PO SCH (08:39)
[2018-01-17] MEDS: RIVAROXABAN 20 MG TAB PO SCH (08:39)
[2018-01-17] MEDS: SODIUM CHLORIDE 0.9% FLUSH 10 ML FLUSH IV FLUSH SCH (08:40)
[2018-01-17] MEDS: PANTOPRAZOLE SODIUM 40 MG VIAL IV PUSH SCH (08:40)
[2018-01-17] MEDS: DOCUSATE SODIUM 50 MG/SENNA 8.6 MG TAB PO SCH (08:43)
[2018-01-17] MEDS ORDERED: SACUBITRIL/VALSARTAN 24 MG-26 MG TAB PO SCH (09:00)
[2018-01-17] MEDS: POTASSIUM CHLORIDE 8 MEQ CAP PO SCH (10:02)
--- NOTE | 2018-01-17 11:52 | RADRPT ---
EXAM DATE/TIME: 01/17/2018 11:31 [facility] COMPARISON: CHEST SINGLE AP, January 14, 2018, 3:28. INDICATIONS : Post new pacemaker MEDICAL HISTORY : Hypertension. Chronic obstructive pulmonary disease. Congestive heart failure. A-Fib SURGICAL HISTORY : Pacemaker. ENCOUNTER: Subsequent ACUITY: 4 - 6 days PAIN SCORE: 0/10 LOCATION: chest FINDINGS: There is been placement of a new pacer in the left chest. There is no pneumothorax identified. The he art is mildly enlarged. The lungs are clear. The osseous structures are grossly intact. CONCLUSION: 1. No pneumothorax identified following pacemaker exchange. Toro Fierro MD on January 17, 2018 at 11:50 Board Certified Radiologist. This report was verified electronically.
[2018-01-17] MEDS ORDERED: SACU1TAB PO (13:49)
[2018-01-17] MEDS ORDERED: XARE20TA PO (13:49)
[2018-01-17] MEDS ORDERED: POTA-163 PO (13:50)
--- NOTE | 2018-01-17 13:52 | HHI.DCPOC ---
Discharge Care Plan Diagnosis: (1) Acute renal failure (2) Acute respiratory failure with hypoxia and hypercapnia (3) Ventricular tachycardia (4) Hypokalemia Goals to Promote Your Health * To prevent worsening of your condition and complications * To maintain your health at the optimal level Directions to Meet Your Goals Take your medications as prescribed Follow your dietary instruction Follow activity as directed Keep your appointments as scheduled Take your immunizations and boosters as scheduled If your symptoms worsen call your PCP, if no PCP go to Urgent Care Center or Emergency Room Smoking is Dangerous to Your Health. Avoid second hand smoke Call the 24-hour hour crisis hotline for domestic abuse at Corinne Diaz MD Jan 17, 2018 13:52
[2018-01-17] MEDS ORDERED: DOXY100C PO (13:53)
--- NOTE | 2018-01-17 13:56 | HHI.DS ---
Discharge Summary Admission Date Jan 12, 2018 at 08:15 Admitting Diagnosis Cardiogenic syncope VT storm (1) ventricular tachycardia storm Diagnosis: Principal (2) Acute respiratory failure ICD Code: J96.00 - Acute respiratory failure, unspecified whether with hypoxia or hypercapnia Diagnosis: Principal (3) Polycythemia ICD Code: D75.1 - Secondary polycythemia Diagnosis: Secondary (4) Chronic systolic heart failure ICD Code: I50.22 - Chronic systolic (congestive) heart failure Diagnosis: Principal Status: Acute (5) Chronic anticoagulation ICD Code: Z79.01 - jail (current) use of anticoagulants Diagnosis: Secondary (6) Hypoxia ICD Code: R09.02 - Hypoxia Diagnosis: Secondary Status: Acute (7) Paroxysmal atrial fibrillation ICD Code: I48.0 - Paroxysmal atrial fibrillation Diagnosis: Secondary Status: Chronic (8) Syncope, cardiogenic ICD Code: R55 - Syncope and collapse Diagnosis: Principal Brief History - From Admission This is a 59-year-old female. Date of admission 01/12/2018. Past medical history include chronic systolic heart failure with ejection fraction less than 20% 11/30, hypertension, dyslipidemia, atrial fibrillation on chronic rivaroxaban, renal cell carcinoma status post right nephrectomy, diabetes mellitus. Patient presented to [facility] today this a.m. when she passed out at home with acute onset of syncope whose origin is likely cardiogenic. She was noted to have multiple episodes of sustained V. tach in aberrant atrial fibrillation that the defibrillator fired multiple times. This is interrogated in the ED and Dr. Burris and Dr. Coello were made aware. Patient is received 2 150 mg bolus of amiodarone is currently on a drip at 1 mg an hour per protocol. She received 120 mg of 2% lidocaine is currently on drip at 2 mg/ min. CBC is back revealing a polycythemia of 17. Remainder of laboratories are all pending at time of dictation. Chest x-ray revealed cardiomegaly with mild vascular congestion. She is currently on a nonrebreather percent satting 97%.. She is awake and lucid at the present time CBC/BMP: 01/17/18 0504 01/17/18 1146 Significant Findings Laboratory Tests Test 01/15/18 06:22 01/16/18 05:40 01/16/18 14:57 01/17/18 05:04 Red Blood Count 5.61 MIL/MM3 (4.00-5.30) Hemoglobin 16.9 GM/DL (11.6-15.3) 15.4 GM/DL (11.6-15.3) Hematocrit 50.3 % (35.0-46.0) Platelet Count 148 TH/MM3 (150-450) Neutrophils (%) (Auto) 73.5 % (16.0-70.0) Monocytes (%) (Auto) 8.4 % (0.0-8.0) 9.1 % (0.0-8.0) 12.3 % (0.0-8.0) Blood Urea Nitrogen 29 MG/DL (7-18) 28 MG/DL (7-18) 24 MG/DL (7-18) Creatinine 1.42 MG/DL (0.50-1.00) 1.28 MG/DL (0.50-1.00) 1.10 MG/DL (0.50-1.00) Random Glucose 110 MG/DL (74-106) 179 MG/DL (74-106) Potassium Level 3.2 MEQ/L (3.5-5.1) 3.4 MEQ/L (3.5-5.1) 2.8 MEQ/L (3.5-5.1) Estimat Glomerular Filtration Rate 37 ML/MIN (>89) 41 ML/MIN (>89) 49 ML/MIN (>89) Calcium Level 8.3 MG/DL (8.5-10.1) 8.4 MG/DL (8.5-10.1) Eosinophils (%) (Auto) 6.4 % (0.0-4.0) Monocytes # (Auto) 1.0 TH/MM3 (0-0.9) Eosinophils # (Auto) 0.5 TH/MM3 (0-0.4) Test 01/17/18 11:46 PE at Discharge GENERAL: 67-year-old female currently resting in bed on nasal cannula in no acute distress SKIN: Warm and dry. CARDIOVASCULAR: Bradycardic,RR. S1, S2. No S4. Without murmurs, clicks, gallops or rubs RESPIRATORY: Few crackles appreciated in the posterior bases bilaterally. No wheezing. GASTROINTESTINAL: Abdomen soft, non-tender, nondistended. Hepatic and splenic margins not palpable. MUSCULOSKELETAL: Extremities trace bilateral lower extremity edema. No obvious deformities. NEUROLOGICAL: Awake and alert. No obvious cranial nerve deficits. Motor grossly within normal limits. Five out of 5 muscle strength in the arms and legs. Normal speech. Pt Condition on Discharge: Stable Discharge Disposition: Disch w/ Home Health Serv Discharge Instructions DIET: Follow Instructions for: Heart Healthy Diet, Diabetic Diet Activities you can perform: See Additionl Instruction Other Activity Instructions: keep arm in sling as directed by Super[employer] Corinne Diaz MD Jan 17, 2018 13:56
[2018-01-17] MEDS ORDERED: AMIO200T PO (15:58)
[2018-01-19] MEDS ORDERED: PHARMACY ORDERED LAB ONE (05:45)
--- NOTE | 2018-01-30 08:45 | MP ---
cc: Jhonatan Coello MD DATE OF OPERATION: 01/16/2018 PROCEDURE: Defibrillator removal and biventricular pacer defibrillator insertion. INDICATIONS: Mrs. Andersen is a 67-year-old female with history of congestive heart failure, cardiomyopathy, ejection fraction now around 15-20%, previous history of atrial fibrillation in sinus rhythm currently, was admitted due to defibrillator shock. That was ventricular fibrillation. She has also congestive heart failure class III in V pacing. Decision for upgrade of defibrillator to a biventricular pacer defibrillator was taken. The risks, the nature and the benefit of the procedure are clearly stated to her. The risks include pneumothorax, cardiac perforation, stroke and even . She understood and agreed to proceed. PROCEDURE: After written informed consent was obtained, the patient was brought to the EP lab where she was prepped and draped in the usual sterile fashion. Conscious sedation was initiated and maintained throughout the procedure by the anesthesiologist. Once sedation verified, the left infraclavicular area was anesthetized with 2% Xylocaine. Using a #11 blade scalpel, a 3 cm incision was made over the existing generator. The incision was taken down to the fascial layer using Bovie cautery and blunt dissection. Once exposed, the generator was removed from the pocket. Scar tissue was removed around the lead. The pocket was expanded. Pocket revision was performed. Then, using modified Seldinger technique, the left subclavian vein was cannulated on two occasions, two guidewires were advanced. 2-0 Vicryl suture was placed around the wire to prevent backbleeding. At this point, over the lateral wire, a 7-Pashto dilator and introducer was advanced. The dilator and wire were removed. An active fixation right atrial pacing and sensing lead was advanced. After adequate pacing and sensing thresholds were obtained, the lead was secured in the pocket using #2 Ethibond suture. Then, over the remaining wire, a 9 Pashto dilator and introducer was advanced. The dilator and wire were removed, a C-S cannulation sheath was advanced. Through the sheath a quadripolar steerable catheter was advanced. After multiple attempts, the coronary sinus was cannulated. CS venography showed an adequate lateral branch. Using a Prowater wire the lateral branch was cannulated and the lead was advanced over the wire. After adequate pacing and sensing thresholds obtained, the peel-away introducer was removed and the cutter introducer was removed, and the lead was secured in the pocket using #2 Ethibond suture. At that point, the pocket was copiously irrigated with antibiotic solution. The defibrillator generator was disconnected from the defibrillator lead and the new implanted lead was connected to the biventricular pacer defibrillator generator and placed into the pocket. Because of the patient's poor ejection fraction, I decided not to proceed with device testing. I did proceed with wound closure. The deep fascial layer was approximated with 2-0 Vicryl suture in a continuous fashion. Subcutaneous layer was approximated with 2-0 Vicryl suture in a continuous fashion. The subcuticular layer was approximated with 2-0 Vicryl suture in a continuous fashion. Dermabond adhesive was applied to the wound followed by a sterile pressure dressing. There was no complication. The patient tolerated the procedure. Blood loss minimal. 1. EXPLANTED HARDWARE: The explanted defibrillator generator is a Vonturonik, serial #[id number]. 2. IMPLANTED HARDWARE: The implanted biventricular pacer defibrillator is a Biotronik model #042545, serial #[id number]. The right atrial pacing/sensing/lead is a Biotronik model #634031, serial #[id number]. The left ventricular pacing/sensing lead is a Medtronic model number 4398-887 [id number]. 3. THRESHOLDS: The right atrial pacing threshold in the bipolar mode was 0.8 volts at 0.4 milliseconds. Lead impedance 265 ohms at 5.3 millivolts. The right ventricular pacing threshold in the bipolar mode was 0.9 volts at 0.4 milliseconds, lead impedance 460 ohms, R-wave at 22.4 millivolts. The left ventricular pacing threshold in the bipolar mode was 100.3 volts at 0.4 milliseconds, lead impedance 865 ohms. 4. SETTINGS: The device set in the DDD60, upper rate limit 130 beats per minute. LV result by 40 milliseconds. Defibrillatory portion for two zones, one zone for ventricular tachycardia between 160-240 beats per minute. Each therapy consisted of , 1 ramp, 81%, 10 pause, decremental, followed by 20, then 30 and all subsequent shocks at 40 joules defibrillatory shock. Second zone set for ventricular fibrillation above 240 beats per minute. First therapy at 30 and all subsequent shocks at 40 joule defibrillatory shock. CONCLUSIONS: Successful defibrillator removal and biventricular pacer defibrillator insertion. COMMENT AND RECOMMENDATION: The patient will be transferred to the telemetry unit to be observed and when stable can be discharged home. MD SYLVIA Ortiz/SB , 11:19 PM , 08:33 AM
== END 2018-01-17 16:36 | disposition home health service (06) | DRG 226 ==
LOC: NEPC 07:23 → NEDA 08:15 → HIME 14:20 → N04B 01-15 19:05 → HCIS 01-16 12:05
PROVIDERS: ADMIT Family Medicine; ATTEND Family Medicine
PROC: 3E0F7GC Introduction of Other Therapeutic Substance into Respiratory Tract, Via Natural or Artificial Opening (ICD-10-PCS; 2018-01-12)
PROC: 02HL3KZ Insertion of Defibrillator Lead into Left Ventricle, Percutaneous Approach (ICD-10-PCS; 2018-01-16)
PROC: 0JPT3PZ Removal of Cardiac Rhythm Related Device from Trunk Subcutaneous Tissue and Fascia, Percutaneous Approach (ICD-10-PCS; 2018-01-16)
PROC: 0JH609Z Insertion of Cardiac Resynchronization Defibrillator Pulse Generator into Chest Subcutaneous Tissue and Fascia, Open Approach (ICD-10-PCS; principal; 2018-01-16 09:30)
DX: I47.2 Ventricular tachycardia (principal); J96.01 Acute respiratory failure with hypoxia; I49.01 Ventricular fibrillation; J96.02 Acute respiratory failure with hypercapnia; I13.0 Hypertensive heart and chronic kidney disease with heart failure and stage 1 through stage 4 chronic kidney disease, or unspecified chronic kidney disease; I50.22 Chronic systolic (congestive) heart failure; D75.1 Secondary polycythemia; I27.20 Pulmonary hypertension, unspecified; E10.22 Type 1 diabetes mellitus with diabetic chronic kidney disease; R56.9 Unspecified convulsions; E86.0 Dehydration; I48.0 Paroxysmal atrial fibrillation; R55 Syncope and collapse; E78.5 Hyperlipidemia, unspecified; I25.5 Ischemic cardiomyopathy; M81.0 Age-related osteoporosis without current pathological fracture; I44.7 Left bundle-branch block, unspecified; E87.6 Hypokalemia; N18.9 Chronic kidney disease, unspecified; M19.90 Unspecified osteoarthritis, unspecified site; I08.1 Rheumatic disorders of both mitral and tricuspid valves; Z95.810 Presence of automatic (implantable) cardiac defibrillator; Z79.4 Long term (current) use of insulin; Z79.01 Long term (current) use of anticoagulants; Z85.528 Personal history of other malignant neoplasm of kidney; Z90.5 Acquired absence of kidney; J44.9 Chronic obstructive pulmonary disease, unspecified
CPT/HCPCS: 33224; 33241; 33249; 70450; 71045; 71046; 80048; 80053; 80061; 80162; 82550; 82552; 82948; 83605; 83735; 84100; 84132; 84443; 84484; 85025; 85610; 85730; 87040; 87071; 87641; 93005; 93306; 93970; 94150; C1730; C1769; C1882; C1898; C1900; C9113; J0282; J1265; J1644; J2001; J2250; J2405; J3010; J3370; J3475; J3480; J7030; J7040; J7050; Q9967